=== PATIENT | female | born 1950 | race Caucasian/White ===

== ENCOUNTER 2017-04-05 13:23 | Inpatient (IN) | payer MEDICARE, OTHER ==
[~2017-04-05] VITALS: Ht 162.6 cm; Wt 52.4 kg
[2017-04-05] MEDS ORDERED: ONDANSETRON 4 MG INJ IV STA (13:33)
[2017-04-05] MEDS ORDERED: HYDROmorphONE 1 MG/ML SYG IV STA ×2 (13:33→16:53)
[2017-04-05] MEDS ORDERED: SODIUM CHLORIDE 0.9% 1L BAG IV* STA (13:33)
[2017-04-05 14:04] LABS: ADD SCAN DIFF NO
[2017-04-05] MEDS ORDERED: ACETAMINOPHEN 325 MG TAB ONE (14:09)
--- NOTE | 2017-04-05 14:20 | RADRPT ---
PROCEDURE: XR Chest. CLINICAL INDICATION: Shortness of breath. Sepsis TECHNIQUE: A single portable view of the chest was obtained. COMPARISON: 03/15/2017 FINDINGS: Right chest wall port is unchanged. The aorta is tortuous and atherosclerotic. The cardiomediastin al silhouette is otherwise within normal limits. The lungs and pleural spaces are clear. The soft tissues and osseous structures demonstrate benign age related senescent changes. IMPRESSION: No acute cardiopulmonary disease. RPTAT: HPNM Physician Reina Date Time Electronically viewed and signed by Jerad Nickerson Physician on 04/05/2017 14:20 /
[2017-04-05 14:23] LABS: INR 1.32; PROTIME 16.5 Sec (12.2-14.2); PT RATIO 1.3
[2017-04-05 14:24] LABS: ABNORMAL IP MESSAGE 1; BASOPHILS % 0.2 % (0.0-2.0); EOSINOPHILS # 0.2 10^3/ul (0.0-0.5); EOSINOPHILS % 1.3 % (0.0-7.0); HEMATOCRIT 27.2 % (37.0-47.0); HEMOGLOBIN 8.4 g/dl (12.0-16.0); LYMPHOCYTES # 0.9 10^3/ul (0.8-2.9); LYMPHOCYTES % 6.6 % (15.0-51.0); MEAN CORPUSCULAR HEMOGLOBIN 32.2 pg (29.0-33.0); MEAN CORPUSCULAR HGB CONC 30.9 g/dl (32.0-37.0); MEAN CORPUSCULAR VOLUME 104.2 fl (82.0-101.0); MEAN PLATELET VOLUME 10.3 fl (7.4-10.4); MONOCYTE # 1.5 10^3/ul (0.3-0.9); MONOCYTES % 10.6 % (0.0-11.0); NEUTROPHIL # 11.5 10^3/ul (1.6-7.5); NEUTROPHILS % 80.6 % (39.0-77.0); PARTIAL THROMBOPLASTIN TIME 39.8 Sec (25.0-35.0); PLATELET COUNT 193 10^3/UL (140-415); RED BLOOD COUNT 2.61 10^6/ul (4.20-5.40); RED CELL DISTRIBUTION WIDTH 20.3 % (11.5-14.5); WHITE BLOOD COUNT 14.3 10^3/ul (4.8-10.8)
[2017-04-05 14:27] LABS: ALANINE AMINOTRANSFERASE 26 IU/L (13-69); ALBUMIN 3.3 g/dl (3.3-4.9); ALBUMIN/GLOBULIN RATIO 1.13; ALKALINE PHOSPHATASE 330 IU/L (42-121); ANION GAP 13 (8-16); ASPARTATE AMINO TRANSFERASE 84 IU/L (15-46); BILIRUBIN,INDIRECT 0.4 mg/dl (0-1.1); BILIRUBIN,TOTAL 0.4 mg/dl (0.2-1.3); BLOOD UREA NITROGEN 11 mg/dl (7-20); CALCIUM 8.4 mg/dl (8.4-10.2); CARBON DIOXIDE 27 mmol/L (21-31); CHLORIDE 95 mmol/L (97-110); CREATININE 0.68 mg/dl (0.44-1.00); GLUCOSE 70 mg/dl (70-220); SODIUM 131 mmol/L (135-144); TOTAL PROTEIN 6.2 g/dl (6.1-8.1)
[2017-04-05] MEDS ORDERED: metroNIDAZOLE 500 MG/NS (PMX) 100 ML IVPB STA (14:28)
[2017-04-05] MEDS ORDERED: LEVOFLOXACIN 750MG/D5W (PMX) 150 ML IVPB STA (14:28)
[2017-04-05] MEDS ORDERED: ACETAMINOPHEN 325 MG TAB PO ONE (14:30)
[2017-04-05] MEDS ORDERED: APIX2.5T PO (14:32)
[2017-04-05] MEDS ORDERED: DOCU-159 PO (14:33)
[2017-04-05] MEDS ORDERED: CHOL100062 PO (14:33)
[2017-04-05] MEDS ORDERED: DRON2.5C PO (14:34)
[2017-04-05] MEDS ORDERED: ESTR1TAB23 PO ×2 (14:35)
--- NOTE | 2017-04-05 14:35 | ERA ---
ER Documentation Chief Complaint Date/Time DATE: 04/05/17 TIME: 14:33 Chief Complaint GEN ABDOMINAL AND FEVER FOR THE PAST FEW DAYS. NO DISTRESS, NO N/V/D HPI 67-year-old female who presents with abdominal pain and fever. The patient is a limited historian possibly secondary to early dementia versus pain. The patient describes several days of abdominal pain, decreased bowel movement. She does have abdominal surgical history but cannot recall what the surgery was. She notes vomiting. Remainder of HPI is somewhat limited. ROS All systems reviewed and are negative except as per history of present illness. Medications Home Meds Reported Medications Ascorbic Acid* (Vitamin C*) 500 Mg Capsule.sa, 500 MG PO DAILY, CAP 04/05/17 Sildenafil Citrate* (Sildenafil Citrate*) 20 Mg Tablet, 20 MG PO TID, TAB 04/05/17 Protein Supplement (Promod) 946 Ml Liquid, 30 ML PO BID 04/05/17 Pregabalin* (Lyrica*) 25 Mg Capsule, 50 MG PO TID, CAP 04/05/17 Polyethylene Glycol* (Polyethylene Glycol*) 17 Gm Powd.pack, 17 GM PO DAILY, # 30 PACKET 04/05/17 Oxycodone HCl/Acetaminophen (Percocet 5-325 mg Tablet) 1 Each Tablet, 1 EACH PO Q4H, TAB 04/05/17 Pantoprazole* (Pantoprazole*) 40 Mg Tablet.dr, 40 MG PO AC BREAKFAST DINNER, TAB 04/05/17 Oxycodone Hcl* (IR) (Oxycodone Hcl*) 15 Mg Tablet, 30 MG PO Q12H Y for PAIN, TAB 04/05/17 Multivitamin with Minerals (Multivitamins with Minerals) 1 Each Tablet, 1 EACH PO DAILY, TAB 04/05/17 Modafinil* (Modafinil*) 100 Mg Tablet, 200 MG PO BID, TAB 04/05/17 Metoclopramide Hcl* (Metoclopramide Hcl*) 5 Mg Tablet, 5 MG PO TID Y for NAUSEA AND/OR VOMITING, TAB 04/05/17 Methylprednisolone* (Medrol*) 4 Mg Tab, 6 MG PO DAILY, TAB 04/05/17 Lubiprostone* (Amitiza*) 24 Mcg Capsule, 24 MCG PO BID, #60 CAP 04/05/17 Loratadine* (Loratadine*) 10 Mg Tablet, 10 MG PO DAILY, #30 TAB 04/05/17 Imatinib Mesylate* (Gleevec*) 400 Mg Tablet, 400 MG PO DAILY, TAB 04/05/17 Ferrous Sulfate* (Ferrous Sulfate*) 325 Mg Tabec, 325 MG PO DAILY, TAB 04/05/17 Estradiol* (Estrace*) 1 Mg Tablet, 1 MG PO DAILY, TAB 04/05/17 Estradiol* (Estrace*) 1 Mg Tablet, 0.5 MG PO QHS, TAB 04/05/17 Dronabinol* (Dronabinol*) 2.5 Mg Capsule, 2.5 MG PO BID, CAP 04/05/17 Docusate Sodium* (Docusate Sodium*) 100 Mg Capsule, 100 MG PO BID, #60 CAP 04/05/17 Cholecalciferol* (Vitamin D3*) 1,000 Unit Tablet, 1000 UNIT PO DAILY, TAB 04/05/17 Apixaban* (Eliquis*) 2.5 Mg Tablet, 2.5 MG PO BID, TAB 04/05/17 Allergies Allergies: Coded Allergies: Gramicidins (Verified Allergy, Unknown, 04/05/17) Sulfa (Sulfonamide Antibiotics) (Verified Allergy, Unknown, 04/05/17) bacitracin (Verified Allergy, Unknown, 04/05/17) piperacillin (Verified Allergy, Unknown, 04/05/17) polymyxin B (Verified Allergy, Unknown, 04/05/17) sulfamethoxazole (Unverified Allergy, Unknown, 04/05/17) trimethoprim (Unverified Allergy, Unknown, 04/05/17) vancomycin (Verified Allergy, Unknown, 04/05/17) FmHx Family History: No diabetes Physical Exam Vitals Vital Signs Date Time Temp Pulse Resp B/P Pulse Ox O2 Delivery O2 Flow Rate FiO2 04/05/17 15:32 102.4 106 20 121/81 100 Room Air 04/05/17 13:56 100.4 125 20 113/98 100 Room Air 04/05/17 13:31 98.9 102 20 125/77 98 Physical Exam General: Cachectic, uncomfortable Head: Normocephalic, atraumatic. Eyes: Pupils equally reactive, EOM intact ENT: Moist mucous membranes Neck: Supple, no lymphadenopathy Respiratory: Lungs clear bilaterally, no distress Cardiovascular: Tachycardia, no murmurs, rubs, or gallops Abdominal: Protuberant, firm, surgical, midline wound that appears to be old, diffuse tenderness : Deferred MSK: No edema, no unilateral swelling, 5/5 strength Neurologic: Alert and oriented, moving all extremities, normal speech, no focal weakness, no cerebellar signs Skin: No rash Psych: Normal mood Result Diagram: 04/05/17 1350 04/05/17 1350 Results 24 hrs Laboratory Tests Test 04/05/17 13:50 White Blood Count 14.310^3/ul Red Blood Count 2.6110^6/ul Hemoglobin 8.4g/dl Hematocrit 27.2% Mean Corpuscular Volume 104.2fl Mean Corpuscular Hemoglobin 32.2pg Mean Corpuscular Hemoglobin Concent 30.9g/dl Red Cell Distribution Width 20.3% Platelet Count 31427^3/UL Mean Platelet Volume 10.3fl Neutrophils % 80.6% Lymphocytes % 6.6% Monocytes % 10.6% Eosinophils % 1.3% Basophils % 0.2% Nucleated Red Blood Cells % 0.0/100WBC Neutrophils # 11.510^3/ul Lymphocytes # 0.910^3/ul Monocytes # 1.510^3/ul Eosinophils # 0.210^3/ul Basophils # 0.010^3/ul Nucleated Red Blood Cells # 0.010^3/ul Prothrombin Time 16.5Sec Prothrombin Time Ratio 1.3 INR International Normalized Ratio 1.32 Activated Partial Thromboplast Time 39.8Sec Sodium Level 131mmol/L Potassium Level 4.0mmol/L Chloride Level 95mmol/L Carbon Dioxide Level 27mmol/L Anion Gap 13 Blood Urea Nitrogen 11mg/dl Creatinine 0.68mg/dl Glucose Level 70mg/dl Lactic Acid Level 1.0mmol/L Calcium Level 8.4mg/dl Total Bilirubin 0.4mg/dl Direct Bilirubin 0.00mg/dl Indirect Bilirubin 0.4mg/dl Aspartate Amino Transf (AST/SGOT) 84IU/L Alanine Aminotransferase (ALT/SGPT) 26IU/L Alkaline Phosphatase 330IU/L Troponin I < 0.012ng/ml Total Protein 6.2g/dl Albumin 3.3g/dl Globulin 2.90g/dl Albumin/Globulin Ratio 1.13 Current Medications Medications (Trade) Dose Ordered Sig/Ally Route PRN Reason Start Time Stop Time Status Last Admin Dose Admin Sodium Chloride (NS) 2,170 ml BOLUS OVER 2 HOURS STAT IV* 04/05/17 13:33 04/05/17 13:37 DC 04/05/17 14:12 Hydromorphone HCl (Dilaudid) 0.5 mg ONCE STAT IV 04/05/17 13:33 04/05/17 13:37 DC 04/05/17 14:12 Ondansetron HCl (Zofran Inj) 4 mg ONCE STAT IV 04/05/17 13:33 04/05/17 13:37 DC 04/05/17 14:12 Acetaminophen (Tylenol Tab) 325 mg STK-MED ONCE .ROUTE 04/05/17 14:09 04/05/17 14:10 DC Acetaminophen 650 mg 650 mg ONCE ONCE PO 04/05/17 14:30 04/05/17 14:31 DC 04/05/17 14:12 Metronidazole 100 ml @ 100 mls/hr ONCE STAT IVPB 04/05/17 14:28 04/05/17 15:27 DC 04/05/17 15:27 Levofloxacin/ Dextrose (Levaquin 750 Mg/ D5W 150 ml (Pmx)) 150 ml @ 100 mls/hr ONCE STAT IVPB 04/05/17 14:28 04/05/17 15:57 DC Ondansetron HCl (Zofran Inj) 4 mg BRIDGE ORDER PRN IV NAUSEA AND/OR VOMITING 04/05/17 15:30 04/06/17 15:29 Acetaminophen (Tylenol Tab) 650 mg ER BRIDGE PRN PO MILD PAIN/FEVER 04/05/17 15:30 04/06/17 15:29 Procedures/MDM EKG, MONITORS, & DIAGNOSTIC IMAGING: EKG: I reviewed and interpreted a 12-lead EKG. Rhythm: Normal sinus rhythm Ectopy: None Intervals: No abnormalities ST segments: No elevations or depressions T waves: No contiguous inversions CT abdomen and pelvis: IMPRESSION: 1. Multiple large hepatic masses, some of which suggest bleeding within the mass. Recommend further evaluation with multi phase CT of the liver. 2. Extensive nodularity in the left retroperitoneum which may represent extensive portosystemic collateral vasculature or adenopathy. Recommend contrast enhanced CT of the abdomen pelvis. 3. Mild abdominopelvic free fluid. 4. Moderate emphysematous changes in the lung bases. 5. Punctate nonobstructing left renal calculi. 6. Atherosclerotic vascular disease. 7. Limited evaluation of the pelvis due to bilateral hip arthroplasties. 8. Nonspecific 1.1 cm sclerotic focus in the left iliac wing. 9. Severe degenerative changes at L3-L4 and L5-S1. RPTAT: KK LAB INTERPRETATION: Leukocytosis MEDICAL DECISION MAKING: The patient presents to the emergency room with fever, abdominal pain. Her abdominal exam is very concerning for acute intra-abdominal process such as bowel obstruction with possible perforation. Cultures will be taken. Patient will benefit from aggressive fluid resuscitation, broad-spectrum antibiotics. The patient has an extensive allergy history, given strong likelihood of acute intra-abdominal process the patient will be given Levaquin and Flagyl. Pain control medication, antipyretics, fluids will be initiated as well. ER COURSE: CT showing evidence of likely malignant process with complications. The patient does have an advanced directive that states DNR, DNI, comfort measures only. For this reason the patient is not a good candidate for surgery. However , general surgeon was notified, Dr. Lee was kind enough to come to the patient's bedside. We will continue with comfort measures with fluids, empiric antibiotics and pain control medication. The patient will be stabilized on the medical surgical floor. Hospice/palliative care consultation on an inpatient basis would likely be appropriate. I kept the patient and/or family informed of laboratory and diagnostic imaging results throughout the emergency room course. DISPOSITION PLAN: Medical surgical admission CONSULTATION: Accepting care team and consultations: I discussed the current laboratory data, diagnostic imaging and emergency care provided. Admitting team: Dr. Marie Admitting team indication: Insurance directed Consulting services: Dr. Emanuel Lee, general surgery Departure Diagnosis: Primary Impression: Abdominal pain Qualified Code: R10.84 - Generalized abdominal pain Additional Impressions: SIRS (systemic inflammatory response syndrome) Liver masses Condition: Stable ANIYAH LENNON MD Apr 05, 2017 14:35
[2017-04-05] MEDS ORDERED: FER325 PO (14:36)
[2017-04-05] MEDS ORDERED: LORA10TA3 PO (14:36)
[2017-04-05] MEDS ORDERED: GLEE400 PO (14:36)
[2017-04-05] MEDS ORDERED: LUBI24CA7 PO (14:37)
[2017-04-05 14:38] LABS: TROPONIN-I < 0.012 ng/ml (0.00-0.12)
[2017-04-05] MEDS ORDERED: METH4TAB PO (14:38)
[2017-04-05] MEDS ORDERED: METO5TAB11 PO (14:38)
[2017-04-05] MEDS ORDERED: [UNRECOGNIZED DRUG - CODE] PO (14:39)
[2017-04-05] MEDS ORDERED: MULT-105 PO (14:40)
[2017-04-05] MEDS ORDERED: OXYC15TA PO (14:42)
[2017-04-05] MEDS ORDERED: PANT40TA4 PO (14:43)
[2017-04-05] MEDS ORDERED: OXYC-279 PO (14:44)
[2017-04-05] MEDS ORDERED: POLY17PO3 PO (14:44)
[2017-04-05] MEDS ORDERED: LYRI25 PO (14:45)
[2017-04-05] MEDS ORDERED: PROT946L PO (14:46)
[2017-04-05] MEDS ORDERED: SILD20TA PO (14:46)
[2017-04-05] MEDS ORDERED: ASCO500C7 PO (14:46)
--- NOTE | 2017-04-05 14:53 | RADRPT ---
PROCEDURE: CT Abdomen and Pelvis without contrast. CLINICAL INDICATION: Abdominal pain TECHNIQUE: CT scan of the abdomen and pelvis without contrast was performed on a multi-slice CT [facility] without intravenous contrast. Coronal and sagittal reformatted images were obtained from the axial source images. Images were reviewed on a high-resolution PACS workstation. One or more of the following does reduction techniques were used: Automated exposure control; adjustment of the mA an d/or kV according to patient size; use of the aorta of reconstruction technique. The total exam CTD I equals 10.99 mGy and the total exam DLP equals 573.5 mGy-cm. COMPARISON: None available. FINDINGS: There are moderate emphysematous changes in the lung bases. Heart size is normal, and there is no e vidence of pericardial thickening or effusion. There are at least 3 masses within the liver and possibly more. There is a mass in the left lobe li adela which measures at least up to 11 cm. There are areas of hyperdensity which appear to be layerin g likely representing bleeding within the mass. There is also an oblong mass-like structure measuri ng 12 cm along the posterior aspect of the left lobe of the liver with an apparent fluid-fluid level also suggesting bleeding within the mass or possibly in a loculated subcapsular space. There is a p oorly demarcated mass in the right lobe of the liver. The spleen is within normal limits. The panc reas is poorly visualized but grossly unremarkable. There appear to be extensive portal venous colla terals in the left retroperitoneum, however the lack of contrast limits evaluation in this may repre sent adenopathy. The gallbladder is not clearly visualized.. The adrenal glands are not well seen. No obvious adrenal masses are present. There are a few punct ate nonobstructing left renal calculi. The kidneys are otherwise grossly within normal limits. The aorta is of normal caliber. Atherosclerotic calcifications are present There is no retroperiton eal lymph node enlargment. There is no evidence of large or small bowel obstruction. There is moderate to large stool througho ut the colon. There is mild thickening of the right colon. A normal appendix is not clearly identi fied.. There has see small amounts of free fluid scattered throughout the abdomen pelvis. The den sity of the fluid is indeterminate. No obvious inflammatory changes are seen.. Evaluation of the pelvis is limited due to dense streak artifact from bilateral total hip arthroplas ties. The bladder appears distended. Evaluation for pelvic sidewall lymph node enlargement is hunter edly limited. The uterus is not visualized. There is pelvic free fluid. The inguinal regions are grossly unremarkable There is a nonspecific 1.1 cm sclerotic focus in the left posterior iliac wing. There is severe deg enerative changes at the lumbosacral junction at L3-L4. There may have been a prior infection at L3 -L4.. IMPRESSION: 1. Multiple large hepatic masses, some of which suggest bleeding within the mass. Recommend furthe r evaluation with multi phase CT of the liver. 2. Extensive nodularity in the left retroperitoneum which may represent extensive portosystemic col lateral vasculature or adenopathy. Recommend contrast enhanced CT of the abdomen pelvis. 3. Mild abdominopelvic free fluid. 4. Moderate emphysematous changes in the lung bases. 5. Punctate nonobstructing left renal calculi. 6. Atherosclerotic vascular disease. 7. Limited evaluation of the pelvis due to bilateral hip arthroplasties. 8. Nonspecific 1.1 cm sclerotic focus in the left iliac wing. 9. Severe degenerative changes at L3-L4 and L5-S1. RPTAT: KK .Janusz Weiss MD, Date Time Electronically viewed and signed by .Janusz Weiss MD, MD on 04/05/2017 14:52 .B/
[2017-04-05] MEDS ORDERED: ONDANSETRON 4 MG INJ IV PRN (15:30)
[2017-04-05] MEDS ORDERED: ACETAMINOPHEN 325 MG TAB PO PRN ×2 (15:30→18:30)
[2017-04-05 16:33] LABS: ADD UMIC YES; UR ASCORBIC ACID NEGATIVE (NEGATIVE); UR BACTERIA FEW /HPF (NONE SEEN); UR BILIRUBIN (Dip) NEGATIVE (NEGATIVE); UR BLOOD (Dip) NEGATIVE (NEGATIVE); UR BUDDING YEAST MODERATE /HPF (NONE SEEN); UR CLARITY SLIGHTLY CLOUDY (CLEAR); UR COLOR YELLOW (YELLOW); UR GLUCOSE (Dip) NEGATIVE (NEGATIVE); UR KETONES (Dip) 1+ mg/dL (NEGATIVE); UR LEUKOCYTE ESTERASE (Dip) 1+ Leu/ul (NEGATIVE); UR NITRITE (Dip) NEGATIVE (NEGATIVE); UR RBC 0 /HPF (0-5); UR SPECIFIC GRAVITY (Dip) 1.014 (1.003-1.030); UR SQUAMOUS EPITHELIAL CELL MODERATE /HPF (FEW); UR TOTAL PROTEIN (Dip) 1+ mg/dl (NEGATIVE); UR UROBILINOGEN (Dip) 2+ mg/dL (NEGATIVE)
--- NOTE | 2017-04-05 16:41 | CONS ---
Date/Time of Note Date/Time of Note DATE: 04/05/17 TIME: 16:23 Assessment/Plan Assessment/Plan Chief Complaint/Hosp Course 1. Intrahepatic masses: CT abd: multiple large hepatic masses, some of which suggest bleeding within the mass and extensive nodularity in the left retroperitoneum which may represent extensive portosystemic collateral vasculature or adenopathy. 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 Patient does not want aggressive interventions, DNR/DNI status -no surgical interventions required at this time -observe for acute bleed -follow up with Oncologist outpatient 2. Severe abdominal pain: 2/2 above -pain management -as above 3. Anemia: likely 2/2 recent chemo + CML vs. acute bleed -monitor -transfuse as needed 4. Leukocytosis: recent chemo + uti; fevers -supportive -abx 5. Hyponatremia: likely 2/2 dehydration + vomiting + liver disease -optimize lytes -judicious fluid management 6. Elevated liver enzymes: 2/2 #1 -as above 7. UTI: no dysuria -encourage frequent bladder emptying -abx 8. CML with recent chemotherapy:concern for metastasis -follow with outpatient oncologist for continuity of care -continue antineoplastic medications Patient seen and examined in collaboration with Dr. Eric Lee. Problems: Consultation Date/Type/Reason Admit Date/Time Date of Consultation: Apr 05, 2017 Type of Consultation: Surgical Reason for Consultation abdominal pain, abnormal ct abdomen Hx of Present Illness Augustina Cruz is a 67 yo woman who presents to the ED with complaints of constant abdominal pain for several days. Abdominal pain is described as constant and dull. Associated factors include nausea, vomiting and fevers as high as 102. No relieving factors. No interventions attempted. She has significant history of CML with recent chemo and a [address] of the abdomen shows Multiple large hepatic masses, some of which suggest bleeding within the mass, extensive nodularity in the left retroperitoneum and mild abdominopelvic free fluid. General surgery was called to evaluate Constitutional: febrile, No chills, No diaphoresis Eyes: No no complaints ENT: No no complaints Respiratory: No cough, No no complaints, No shortness of breath Cardiovascular: No chest pain, No edema, No lightheadedness, No palpitations Gastrointestinal: flatus, pain Genitourinary: No no complaints Musculoskeletal: No no complaints Skin: No no complaints Neurologic: No confusion, No headache, No syncope Endocrine: No polyuria Psychological: anxiety Past Medical History Medical History: cancer (CML with recent chemo), other (bowel obstruction, liver lesions) Past Surgical History Past Surgical Hx: other (korina cath placement, bilateral hip replacement, explore lap) Family History Significant Family History: no pertinent family hx Social History Alcohol Use: none Smoking Status: Unknown if ever smoked Drug Use: none Exam/Review of Systems Vital Signs Vitals Vital Signs Date Time Temp Pulse Resp B/P Pulse Ox O2 Delivery O2 Flow Rate FiO2 04/05/17 15:32 102.4 106 20 121/81 100 Room Air Exam Constitutional: alert, oriented Psych: anxiety Head: atraumatic, normocephalic Eyes: nl lids, nl sclera ENMT: mucosa pink and moist Neck: non-tender, supple Respiratory: clear to auscultation Cardiovascular: regular rate and rhythm, No edema Gastrointestinal: bowel sounds, distended, hepatomegaly, surgical scars, tender Musculoskeletal: nl extremities to inspection Extremities: normal pulses, No edema Neurological: nl mental status, nl speech Skin: nl turgor Lymph: enlarged Results Result Diagram: 04/05/17 1350 04/05/17 1350 Results 24 hrs Laboratory Tests Test 04/05/17 13:50 White Blood Count 14.3 #H Red Blood Count 2.61 L Hemoglobin 8.4 L Hematocrit 27.2 L Mean Corpuscular Volume 104.2 H Mean Corpuscular Hemoglobin 32.2 Mean Corpuscular Hemoglobin Concent 30.9 L Red Cell Distribution Width 20.3 H Platelet Count 193 Mean Platelet Volume 10.3 Neutrophils % 80.6 H Lymphocytes % 6.6 L Monocytes % 10.6 Eosinophils % 1.3 Basophils % 0.2 Nucleated Red Blood Cells % 0.0 Neutrophils # 11.5 H Lymphocytes # 0.9 Monocytes # 1.5 H Eosinophils # 0.2 Basophils # 0.0 Nucleated Red Blood Cells # 0.0 Prothrombin Time 16.5 H Prothrombin Time Ratio 1.3 INR International Normalized Ratio 1.32 Activated Partial Thromboplast Time 39.8 H Sodium Level 131 L Potassium Level 4.0 Chloride Level 95 L Carbon Dioxide Level 27 Anion Gap 13 Blood Urea Nitrogen 11 Creatinine 0.68 Glucose Level 70 Lactic Acid Level 1.0 Calcium Level 8.4 Total Bilirubin 0.4 Direct Bilirubin 0.00 Indirect Bilirubin 0.4 Aspartate Amino Transf (AST/SGOT) 84 H Alanine Aminotransferase (ALT/SGPT) 26 Alkaline Phosphatase 330 H Troponin I < 0.012 Total Protein 6.2 Albumin 3.3 Globulin 2.90 Albumin/Globulin Ratio 1.13 ELLIOTT XIONG NP Apr 05, 2017 16:41
[2017-04-05 17:29] VITALS: TEMP 98.4
[2017-04-05] MEDS ORDERED: oxyCODONE 15 MG TAB PO PRN ×2 (18:30→20:00)
[2017-04-05] MEDS ORDERED: MAGNESIUM HYDROXIDE 30ML CUP PO PRN (18:30)
[2017-04-05] MEDS ORDERED: NA PHOSPHATE/BIPHOS 133 ML ENEMA PR PRN (18:30)
[2017-04-05] MEDS ORDERED: hydrALAzine 20 MG INJ IV PRN (18:30)
[2017-04-05] MEDS ORDERED: METOCLOPRAMIDE 5 MG TAB PO PRN (18:30)
[2017-04-05] MEDS ORDERED: HYDROCODONE/APAP (5/325) TAB PO PRN (18:30)
[2017-04-05] MEDS ORDERED: NITROGLYCERIN (SL) 0.4 MG TAB SL PRN (18:30)
[2017-04-05] MEDS ORDERED: LORAZEPAM 2 MG INJ IV PRN (18:30)
[2017-04-05] MEDS ORDERED: DOCUSATE SODIUM 100 MG CAP PO PRN (18:30)
[2017-04-05] MEDS: SOD CHLORIDE 0.9% 1,000 ML IV SCH (19:07)
--- NOTE | 2017-04-05 19:31 | HP ---
Date/Time of Note Date/Time of Note DATE: 04/05/17 TIME: 19:25 Assessment/Plan VTE Prophylaxis VTE Prophylaxis Intervention: contraindicated, SCD's VTE Contraindication Reason: bleeding Assessment/Plan Chief Complaint/Hosp Course Assessment and plan: 67-year-old female prior history of CML, bowel obstruction , dementia, who presents with abdominal pain, found with multiple hepatic bleeding masses, now DNR and DNI. 1. Abdominal pain: Likely secondary to the bleeding hepatic masses -Pain control medications, check TSH A1c lipid panel, follow-up surgery recommendations -Consider PT consult 2. CML: Apparently patient had recent chemotherapy -Monitor, consider hematology oncology consult 3. Dementia: Questionable, monitor 4. GI prophylaxis: PPI 5. DVT prophylaxis: SCDs 6. Leukocytosis: Possibly secondary to patient's recent chemotherapy, versus infection, -Monitor for now, consider cultures, Tylenol as needed pain fever 7. Mild hyponatremia: Monitor for now, continue IV fluids Problems: HPI/ROS Admit Date/Time Admit Date/Time Hx of Present Illness 67-year-old female past medical history of possible dementia, CML with recent chemo, possible prior bowel obstructions, who presents with abdominal pain and fever. Most of the information is obtained from the ER documentation as the patient is a limited historian possibly secondary to early dementia versus pain. The patient describes several days of abdominal pain, decreased bowel movement. She does have abdominal surgical history but cannot recall what the surgery was. + vomiting, and nausea. Remainder of HPI is somewhat limited. Full review of systems could not be obtained at this time. When she came into the ER she had imaging studies performed of the abdomen that shows: Multiple large hepatic masses, some of which suggest bleeding within the mass. Extensive nodularity in the left retroperitoneum which may represent extensive portosystemic collateral vasculature or adenopathy. Patient is DNR/DNI. In the ER she was evaluated by the surgery team. ROS Eyes: No no complaints ENT: No no complaints Respiratory: No cough, No no complaints, No shortness of breath Cardiovascular: No chest pain, No edema, No lightheadedness, No palpitations Gastrointestinal: flatus, pain Genitourinary: No no complaints Musculoskeletal: No no complaints Skin: No no complaints Neurologic: No confusion, No headache, No syncope Psychological: anxiety PMH/Family/Social Past Medical History Medical History: cancer (CML with recent chemo), other (bowel obstruction, liver lesions) Past Surgical History Past Surgical Hx: other (korina cath placement, bilateral hip replacement, explore lap) Social History Alcohol Use: none Smoking Status: Unknown if ever smoked Drug Use: none Exam/Review of Systems Vital Signs Vitals Vital Signs Date Time Temp Pulse Resp B/P Pulse Ox O2 Delivery O2 Flow Rate FiO2 04/05/17 17:29 98.4 79 20 102/79 97 Nasal Cannula 2.0 Exam Exam General: Cachectic, uncomfortable Head: Normocephalic, atraumatic. Eyes: Pupils equally reactive, EOM intact ENT: Moist mucous membranes Neck: Supple, no lymphadenopathy Respiratory: Lungs clear bilaterally, no distress Cardiovascular: Tachycardia, no murmurs, rubs, or gallops Abdominal: Protuberant, firm, surgical, midline wound that appears to be old, diffuse tenderness : Deferred MSK: No edema, no unilateral swelling, 5/5 strength Neurologic: Alert and oriented, moving all extremities, normal speech, no focal weakness, no cerebellar signs Skin: No rash Psych: Normal mood Labs Result Diagram: 04/05/17 1350 04/05/17 1350 Medications Medications Current Medications Ondansetron HCl (Zofran Inj) 4 mg Q6H PRN IV NAUSEA AND/OR VOMITING; Start 04/05 at 18:30 Acetaminophen (Tylenol Tab) 650 mg Q6H PRN PO PAIN LEVEL 1-3 OR FEVER; Start at 18:30 Acetaminophen/ Hydrocodone Bitart ([place] (5/325)) 1 tab Q6H PRN PO MODERATE PAIN LEVEL 4-6; Start 04/05/17 at 18:30 Morphine Sulfate (morphine) 2 mg Q4H PRN IV SEVERE PAIN LEVEL 7-10; Start at 18:30 Docusate Sodium (Colace) 100 mg Q12H PRN PO CONSTIPATION; Start 04/05/17 at 18: 30 Magnesium Hydroxide (Milk Of Mag) 30 ml DAILY PRN PO CONSTIPATION; Start at 18:30 Sodium Biphosphate/ Sodium Phosphate (Fleet Enema) 133 ml DAILY PRN [place] CONSTIPATION; Start 04/05/17 at 18:30 Lorazepam 0.5 mg 0.5 mg Q6H PRN IV ANXIETY; Start 04/05/17 at 18:30 Sodium Chloride 1,000 ml @ 100 mls/hr Q10H IV Last administered on 04/05/17t 19 :07; Admin Dose 100 MLS/HR; Start 04/05/17 at 18:07 Levofloxacin/ Dextrose (Levaquin 750 Mg/ D5W 150 ml (Pmx)) 150 ml @ 100 mls/hr DAILY IVPB ; Start 04/06/17 at 09:00; Status UNV Hydralazine HCl (Apresoline) 10 mg Q6H PRN IV ELEVATED BLOOD PRESSURE; Start at 18:30 Nitroglycerin (Nitroglycerin (Sl Tab) 0.4 Mg) 1 tab Q5M PRN SL ANGINA; Start at 18:30 Ascorbic Acid (Vitamin C) 500 mg DAILY PO ; Start 04/06/17 at 09:00 Cholecalciferol (Vitamin D) 1,000 unit DAILY PO ; Start 04/06/17 at 09:00 Docusate Sodium (Colace) 100 mg BID PO ; Start 04/05/17 at 21:00 Dronabinol (Marinol) 2.5 mg BID PO ; Start 04/05/17 at 21:00; Status UNV Estradiol (Estrace) 0.5 mg QHS PO ; Start 04/05/17 at 21:00; Status UNV Estradiol (Estrace) 1 mg DAILY PO ; Start 04/06/17 at 09:00; Status UNV Ferrous Sulfate (Ferrous Sulfate (Ec)) 325 mg DAILY PO ; Start 04/06/17 at 09:00 Imatinib Mesylate (Gleevec) 400 mg DAILY PO ; Start 04/06/17 at 09:00; Status UNV Loratadine (Claritin) 10 mg DAILY PO ; Start 04/06/17 at 09:00 Lubiprostone (Amitiza) 24 mcg BID PO ; Start 04/05/17 at 21:00; Status UNV Methylprednisolone (Medrol) 6 mg DAILY PO ; Start 04/06/17 at 09:00; Status UNV Metoclopramide HCl (Reglan) 5 mg TID PRN PO NAUSEA AND/OR VOMITING; Start at 18:30 Modafinil (Provigil) 200 mg BID PO ; Start 04/05/17 at 21:00; Status UNV Oxycodone HCl (Roxicodone) 30 mg Q12H PRN PO PAIN; Start 04/05/17 at 18:30; Status UNV Polyethylene Glycol (Miralax) 17 gm DAILY PO ; Start 04/06/17 at 09:00 Pregabalin (Lyrica) 50 mg TID PO ; Start 04/05/17 at 21:00; Status UNV Sildenafil Citrate (Revatio) 20 mg TID PO ; Start 04/05/17 at 21:00; Status UNV Multivitamins/ Minerals 1 tab 1 tab DAILY PO ; Start 04/06/17 at 09:00 Metronidazole (Flagyl 500 Mg (Pmx)) 100 ml @ 100 mls/hr Q8 IVPB ; Start at 22:00 ISHAN MILLER Apr 05, 2017 19:31
[2017-04-05 20:03] LABS: INR 1.43; PROTIME 17.5 Sec (12.2-14.2); PT RATIO 1.4
[2017-04-05 20:04] LABS: PARTIAL THROMBOPLASTIN TIME 39.7 Sec (25.0-35.0)
[2017-04-05] MEDS: MODAFINIL 200 MG TAB PO SCH (21:00)
[2017-04-05] MEDS ORDERED: LUBIPROSTONE 24 MCG CAP PO SCH (21:00)
[2017-04-05] MEDS ORDERED: NON-FORMULARY/PATIENT OWN MED (Protein Supplement (Promod) 30 ML) PO SCH (21:00)
[2017-04-05] MEDS ORDERED: ESTRADIOL 1 MG TAB PO SCH (21:00)
[2017-04-05] MEDS: SILDENAFIL 20 MG TAB PO SCH (21:00)
[2017-04-05] MEDS ORDERED: DRONABINOL 2.5 MG CAP PO SCH (21:00)
[2017-04-05] MEDS: DOCUSATE SODIUM 100 MG CAP PO SCH (21:00)
[2017-04-05] MEDS: ESTRADIOL 1 MG TAB PO SCH (21:00)
[2017-04-05] MEDS: DRONABINOL 2.5 MG CAP PO SCH (21:00)
[2017-04-05] MEDS ORDERED: PREGABALIN 25 MG CAP PO SCH (21:00)
[2017-04-05] MEDS: LUBIPROSTONE 24 MCG CAP PO SCH (21:00)
[2017-04-05] MEDS ORDERED: MODAFINIL 100 MG TAB PO SCH (21:00)
[2017-04-05] MEDS ORDERED: SILDENAFIL 20 MG TAB PO SCH (21:00)
[2017-04-05] MEDS: PREGABALIN 50 MG CAP PO SCH (22:00)
[2017-04-05 22:12] VITALS: BP 112/72; RESP 16
[2017-04-05] MEDS: morphine 2 MG INJ IV PRN (22:17)
[2017-04-05] MEDS: metroNIDAZOLE 500 MG/NS (PMX) 100 ML IVPB SCH (22:25)
[2017-04-05 22:50] VITALS: Ht 162.6 cm; Wt 52.4 kg
[2017-04-06] MEDS: SOD CHLORIDE 0.9% 1,000 ML IV SCH ×2 (01:53→12:10)
[2017-04-06 03:14] VITALS: BP 122/75; RESP 18
[2017-04-06] MEDS: morphine 2 MG INJ IV PRN ×2 (03:35→07:48)
[2017-04-06] MEDS ORDERED: PENDING SANTYL ORDER FOR WOUND CARE XX PRN (04:00)
[2017-04-06] MEDS: metroNIDAZOLE 500 MG/NS (PMX) 100 ML IVPB SCH ×3 (05:07→21:56)
[2017-04-06] MEDS: PANTOPRAZOLE (EC) 40 MG TAB PO SCH ×2 (07:30→17:35)
[2017-04-06 08:23] VITALS: BP 123/78; RESP 20
[2017-04-06] MEDS: PREGABALIN 50 MG CAP PO SCH (09:00)
[2017-04-06] MEDS ORDERED: IMATINIB 400 MG TAB PO SCH (09:00)
[2017-04-06] MEDS: LORATADINE 10 MG TAB PO SCH (09:00)
[2017-04-06] MEDS: METHYLPREDNISOLONE 4 MG TAB PO SCH (09:00)
[2017-04-06] MEDS: ASCORBIC ACID 500 MG TAB PO SCH (09:00)
[2017-04-06] MEDS: IMATINIB 400 MG TAB PO SCH (09:00)
[2017-04-06] MEDS: FERROUS SULFATE (EC) 325 MG TAB PO SCH (09:00)
[2017-04-06] MEDS ORDERED: LEVOFLOXACIN 750MG/D5W (PMX) 150 ML IVPB SCH (09:00)
[2017-04-06] MEDS ORDERED: ESTRADIOL 1 MG TAB PO SCH (09:00)
[2017-04-06] MEDS: DOCUSATE SODIUM 100 MG CAP PO SCH ×2 (09:00→21:00)
[2017-04-06] MEDS: SILDENAFIL 20 MG TAB PO SCH ×3 (09:00→21:00)
[2017-04-06] MEDS: MULTIVITAMINS/MINERALS TAB PO SCH (09:00)
[2017-04-06] MEDS: POLYETHYLENE GLYCOL 17 GM PACKET PO SCH (09:00)
[2017-04-06] MEDS ORDERED: METHYLPREDNISOLONE 4 MG TAB PO SCH (09:00)
[2017-04-06] MEDS: MODAFINIL 200 MG TAB PO SCH (09:00)
[2017-04-06] MEDS: LUBIPROSTONE 24 MCG CAP PO SCH ×2 (09:00→21:00)
[2017-04-06] MEDS: CHOLECALCIFEROL 1,000 UNIT TAB PO SCH (09:00)
[2017-04-06] MEDS: ESTRADIOL 1 MG TAB PO SCH ×2 (09:00→21:00)
[2017-04-06] MEDS: DRONABINOL 2.5 MG CAP PO SCH ×2 (09:00→21:00)
--- NOTE | 2017-04-06 11:11 | PN ---
Date/Time of Note Date/Time of Note DATE: 04/06/17 TIME: 11:08 Assessment/Plan VTE Prophylaxis VTE Prophylaxis Intervention: SCD's Lines/Catheters IV Catheter Type (from Nrsg): Portacath Assessment/Plan Chief Complaint/Hosp Course 1. [address] scan of the abdomen showing multiple large hepatic masses some of which suggest bleeding within the mass with extensive nodularity in the left retroperitoneum which may represent extrinsic portosystemic collateral vasculature adenopathy. Status post evaluation by general surgery. Surgery recommended pain control. Will involve pain management team. 2. History of chronic myelogenous leukemia. Apparently on chemotherapy. Patient's oncologist is Dr Rosetta Cedillo ([phone]). WIll have our oncologist evaluate the patient. 3. Leukocytosis. Etiology unclear. Probably steroid-induced. Monitor. On empiric antibiotics. Urinalysis on admission was positive. Urine culture negative so far. 4. Hyponatremia. Continue sodium chloride. 5. Macrocytic anemia. Monitor H&H closely. 6. Fluids, electrolytes, and nutrition. N.p.o. except for medications. 7. DVT prophylaxis. Bilateral sequential compression devices. 8. Gastrointestinal prophylaxis. Histamine 2 receptor blockers. 9. Plan. Continue pain control. Continue empiric antibiotics. Obtain pain management consult. Obtain oncology consult. Case discussed with Dr. Marie. Problems: Subjective 24 Hr Interval Summary Free Text/Dictation Complains of severe abdominal pain. Exam/Review of Systems Vital Signs Vitals Vital Signs Date Time Temp Pulse Resp B/P Pulse Ox O2 Delivery O2 Flow Rate FiO2 04/06/17 08:23 98.0 103 20 123/78 97 04/05/17 20:00 Nasal Cannula 2.0 Exam General: Thin, frail looking 67 year-old female lying in bed in no apparent distress. HEENT: Normocephalic, atraumatic. Eyes: Anicteric sclerae, conjunctivae clear. ENT: Nasal septum midline, oral mucosa moist. Neck supple, no JVD noticed. Respiratory: Bilaterally diminished breath sounds. Minimal use of accessory muscles of respiration. No adventitious breath sounds. Cardiovascular: S1, S2 heard. No murmurs or gallops. Abdomen: Distended and firm. Diffuse tenderness. Bowel sounds positive in all 4 quadrants. Genitourinary: Deferred. Extremities: No cyanosis, no clubbing. Bilateral 1+ pedal edema. Peripheral pulses palpable. Neurologic: Cranial nerves II through XII grossly intact. The patient is awake, alert, and oriented. Skin: Normal skin turgor. No skin rashes. Results Result Diagram: 04/05/17 1350 04/05/17 1350 Results 24 hrs Laboratory Tests Test 04/05/17 13:50 04/05/17 15:15 04/05/17 16:00 04/05/17 17:10 White Blood Count 14.3 #H Red Blood Count 2.61 L Hemoglobin 8.4 L Hematocrit 27.2 L Mean Corpuscular Volume 104.2 H Mean Corpuscular Hemoglobin 32.2 Mean Corpuscular Hemoglobin Concent 30.9 L Red Cell Distribution Width 20.3 H Platelet Count 193 Mean Platelet Volume 10.3 Neutrophils % 80.6 H Lymphocytes % 6.6 L Monocytes % 10.6 Eosinophils % 1.3 Basophils % 0.2 Nucleated Red Blood Cells % 0.0 Neutrophils # 11.5 H Lymphocytes # 0.9 Monocytes # 1.5 H Eosinophils # 0.2 Basophils # 0.0 Nucleated Red Blood Cells # 0.0 Prothrombin Time 16.5 H Prothrombin Time Ratio 1.3 INR International Normalized Ratio 1.32 Activated Partial Thromboplast Time 39.8 H Sodium Level 131 L Potassium Level 4.0 Chloride Level 95 L Carbon Dioxide Level 27 Anion Gap 13 Blood Urea Nitrogen 11 Creatinine 0.68 Glucose Level 70 Lactic Acid Level 1.0 0.7 0.8 Calcium Level 8.4 Total Bilirubin 0.4 Direct Bilirubin 0.00 Indirect Bilirubin 0.4 Aspartate Amino Transf (AST/SGOT) 84 H Alanine Aminotransferase (ALT/SGPT) 26 Alkaline Phosphatase 330 H Troponin I < 0.012 Total Protein 6.2 Albumin 3.3 Globulin 2.90 Albumin/Globulin Ratio 1.13 Free Thyroxine 1.19 Urine Color YELLOW Urine Clarity SLIGHTLY CLOUDY A Urine pH 6.0 Urine Specific [place] 1.014 Urine Ketones 1+ H Urine Nitrite NEGATIVE Urine Bilirubin NEGATIVE Urine Urobilinogen 2+ H Urine Leukocyte Esterase 1+ H Urine Microscopic RBC 0 Urine Microscopic WBC 80 H Urine Squamous Epithelial Cells MODERATE Urine Bacteria FEW A Urine Yeast (Budding) MODERATE A Urine Hemoglobin NEGATIVE Urine Glucose NEGATIVE Urine Total Protein 1+ H Test 04/05/17 19:40 Prothrombin Time 17.5 H Prothrombin Time Ratio 1.4 INR International Normalized Ratio 1.43 Activated Partial Thromboplast Time 39.7 H Medications Medications Current Medications Ondansetron HCl (Zofran Inj) 4 mg Q6H PRN IV NAUSEA AND/OR VOMITING; Start 04/05 at 18:30 Acetaminophen (Tylenol Tab) 650 mg Q6H PRN PO PAIN LEVEL 1-3 OR FEVER; Start at 18:30 Acetaminophen/ Hydrocodone Bitart ([place] (5/325)) 1 tab Q6H PRN PO MODERATE PAIN LEVEL 4-6; Start 04/05/17 at 18:30 Morphine Sulfate (morphine) 2 mg Q4H PRN IV SEVERE PAIN LEVEL 7-10 Last administered on 04/06/17 07:48; Admin Dose 2 MG; Start 04/05/17 at 18:30 Docusate Sodium (Colace) 100 mg Q12H PRN PO CONSTIPATION; Start 04/05/17 at 18: 30 Magnesium Hydroxide (Milk Of Mag) 30 ml DAILY PRN PO CONSTIPATION; Start at 18:30 Sodium Biphosphate/ Sodium Phosphate (Fleet Enema) 133 ml DAILY PRN [place] CONSTIPATION; Start 04/05/17 at 18:30 Lorazepam 0.5 mg 0.5 mg Q6H PRN IV ANXIETY; Start 04/05/17 at 18:30 Sodium Chloride (NS) 1,000 ml @ 100 mls/hr Q10H IV Last administered on 01:53; Admin Dose 100 MLS/HR; Start 04/05/17 at 18:07 Hydralazine HCl (Apresoline) 10 mg Q6H PRN IV ELEVATED BLOOD PRESSURE; Start at 18:30 Nitroglycerin (Nitroglycerin (Sl Tab) 0.4 Mg) 1 tab Q5M PRN SL ANGINA; Start at 18:30 Ascorbic Acid (Vitamin C) 500 mg DAILY PO ; Start 04/06/17 at 09:00 Cholecalciferol (Vitamin D) 1,000 unit DAILY PO ; Start 04/06/17 at 09:00 Docusate Sodium (Colace) 100 mg BID PO ; Start 04/05/17 at 21:00 Ferrous Sulfate (Ferrous Sulfate (Ec)) 325 mg DAILY PO ; Start 04/06/17 at 09:00 Loratadine (Claritin) 10 mg DAILY PO ; Start 04/06/17 at 09:00 Metoclopramide HCl (Reglan) 5 mg TID PRN PO NAUSEA AND/OR VOMITING; Start at 18:30 Polyethylene Glycol (Miralax) 17 gm DAILY PO ; Start 04/06/17 at 09:00 Multivitamins/ Minerals 1 tab 1 tab DAILY PO ; Start 04/06/17 at 09:00 Metronidazole (Flagyl 500 Mg (Pmx)) 100 ml @ 100 mls/hr Q8 IVPB Last administered on 04/06/17t 05:07; Admin Dose 100 MLS/HR; Start 04/05/17 at 22:00 Dronabinol (Marinol) 2.5 mg BID PO ; Start 04/05/17 at 21:00 Estradiol (Estrace) 0.5 mg QHS PO ; Start 04/05/17 at 21:00 Estradiol (Estrace) 1 mg DAILY PO ; Start 04/06/17 at 09:00 Imatinib Mesylate (Gleevec) 400 mg DAILY PO ; Start 04/06/17 at 09:00 Lubiprostone (Amitiza) 24 mcg BID PO ; Start 04/05/17 at 21:00 Methylprednisolone (Medrol) 6 mg DAILY PO ; Start 04/06/17 at 09:00 Modafinil (Provigil) 200 mg BID PO ; Start 04/05/17 at 21:00 Oxycodone HCl (Roxicodone) 30 mg Q12H PRN PO PAIN; Start 04/05/17 at 20:00 Pregabalin (Lyrica) 50 mg TID PO ; Start 04/05/17 at 22:00 Sildenafil Citrate 20 mg 20 mg TID PO ; Start 04/05/17 at 21:00 Levofloxacin/ Dextrose (Levaquin 750 Mg/ D5W 150 ml (Pmx)) 150 ml @ 100 mls/hr Q24H IVPB ; Start 04/06/17 at 17:00 Miscellaneous Information (Pending Santyl Order For Wound Care) This patient corrigan... PRN PRN XX WOUND CARE; Start 04/06/17 at 04:00 ADITI GROSS NP Apr 06, 2017 11:11
--- NOTE | 2017-04-06 11:35 | CONS ---
Date/Time of Note Date/Time of Note DATE: 04/06/17 TIME: 11:25 Assessment/Plan Assessment/Plan Additional Assessment/Plan Long conversation concerning pain management at this time she and I have decided to start off on a ROOM INSPECTOR she assures me that she is able to control her own pain and is familiar with the use of patient-controlled analgesia machine. I will change her CODE STATUS to DO NOT RESUSCITATE per her request and reach out to her family members. Prognosis is extremely grim. Consultation Date/Type/Reason Admit Date/Time Date of Consultation: Apr 06, 2017 Type of Consultation: Pain management palliative car Hx of Present Illness 67-year-old female well-known to me readmitted to [facility] from [facility] with increasing abdominal discomfort. Patient has a past medical history of chronic myelogenous leukemia she is unclear as to when the last chemotherapy was given but the last time I saw her was approximately 2 weeks ago and she states not since that time. Patient was seen by surgical consultation in emergency room which felt patient was not a candidate for any surgical intervention. Please refer to results of CT scan but evidence for new hepatic metastasis with preliminary evidence of possible hemorrhage within the lesions. States her pain is primarily epigastric severe without radiations into her back lower quadrants or flanks significantly interferes with her eating have mood and sleeping. Pain was sudden in onset described as severe current medications are not controlling her pain is any other systemic symptom of nausea vomiting chest pain shortness of breath I have known her from the past there is no history of purposeful oversedation or asking for increasing doses of pain control medications there is no history of smoking drug abuse or alcohol addictions she does not insist on certain pain control medications as an outpatient she was taken a combination of OxyContin and [place] for pain management when this episode occurred these pain medications were ineffective she has been admitted for stabilization and workup. From a palliative care standpoint of had an extensive conversation with her she wants to make all decisions on her own behalf and has made it very clear she does not want to have cardiopulmonary resuscitation or to live on artificial life support measures. In the event that she cannot make decisions on her own behalf first her will make decisions on her behalf and and secondarily her sister. Any other palliative conversations have been deferred per her request at this time until her pain is better controlled. Constitutional: febrile, No chills, No diaphoresis Eyes: No no complaints ENT: No no complaints Respiratory: No cough, No no complaints, No shortness of breath Cardiovascular: No chest pain, No edema, No lightheadedness, No palpitations Gastrointestinal: flatus, pain Genitourinary: No no complaints Musculoskeletal: No no complaints Skin: No no complaints Neurologic: No confusion, No headache, No syncope Endocrine: No polyuria Psychological: anxiety Past Medical History Medical History: cancer (CML with recent chemo), other (bowel obstruction, liver lesions) Past Surgical History Past Surgical Hx: other (korina cath placement, bilateral hip replacement, explore lap) Family History Significant Family History: no pertinent family hx Social History Alcohol Use: none Smoking Status: Former smoker Drug Use: none Exam/Review of Systems Vital Signs Vitals Vital Signs Date Time Temp Pulse Resp B/P Pulse Ox O2 Delivery O2 Flow Rate FiO2 04/06/17 08:23 98.0 103 20 123/78 97 04/05/17 20:00 Nasal Cannula 2.0 Exam Constitutional: distress, frail Psych: anxiety, nl mood/affect, no complaints Head: atraumatic, normocephalic Eyes: EOMI, PERRL, nl conjunctiva, nl lids, nl sclera Neck: No bruits, No jvd, No masses, No non-tender, No nuchal rigidity, No other , No supple, No thyromegaly Respiratory: clear to auscultation, normal air movement, No congested cough, No crackles/rales, No diminished breath sounds, No intercostal retraction, No labored breathing, No other, No respirations, No tactile fremitus, No wheezing Cardiovascular: No S3, No S4, No bruits, No diastolic murmur, No edema, No gallop, No irregular rhythm, No jugular venous distention (JVD), No murmurs/ extra sounds, No nl pulses, No other, No regular rate and rhythm, No rub, No systolic murmur Gastrointestinal: bowel sounds, nl liver, spleen, soft, tender Musculoskeletal: No joint tenderness, No muscle tone, No muscle weakness, No nl extremities to inspection, No nl gait and stance, No other, No range of motion, No spine non-tender, No swelling Extremities: No calf tenderness, No clubbing, No cyanosis, No edema, No normal pulses, No other, No palpable cord, No pitting pedal edema, No tenderness Neurological: APPIAN DEVELOPER II-XII intact, nl mental status, nl speech, No DTR's symmetric, No confused, No focal weakness, No lethargic, No numbness , No other, No reflexes, No unresponsive Results Result Diagram: 04/05/17 1350 04/05/17 1350 Results 24 hrs Laboratory Tests Test 04/05/17 13:50 04/05/17 15:15 04/05/17 16:00 04/05/17 17:10 White Blood Count 14.3 #H Red Blood Count 2.61 L Hemoglobin 8.4 L Hematocrit 27.2 L Mean Corpuscular Volume 104.2 H Mean Corpuscular Hemoglobin 32.2 Mean Corpuscular Hemoglobin Concent 30.9 L Red Cell Distribution Width 20.3 H Platelet Count 193 Mean Platelet Volume 10.3 Neutrophils % 80.6 H Lymphocytes % 6.6 L Monocytes % 10.6 Eosinophils % 1.3 Basophils % 0.2 Nucleated Red Blood Cells % 0.0 Neutrophils # 11.5 H Lymphocytes # 0.9 Monocytes # 1.5 H Eosinophils # 0.2 Basophils # 0.0 Nucleated Red Blood Cells # 0.0 Prothrombin Time 16.5 H Prothrombin Time Ratio 1.3 INR International Normalized Ratio 1.32 Activated Partial Thromboplast Time 39.8 H Sodium Level 131 L Potassium Level 4.0 Chloride Level 95 L Carbon Dioxide Level 27 Anion Gap 13 Blood Urea Nitrogen 11 Creatinine 0.68 Glucose Level 70 Lactic Acid Level 1.0 0.7 0.8 Calcium Level 8.4 Total Bilirubin 0.4 Direct Bilirubin 0.00 Indirect Bilirubin 0.4 Aspartate Amino Transf (AST/SGOT) 84 H Alanine Aminotransferase (ALT/SGPT) 26 Alkaline Phosphatase 330 H Troponin I < 0.012 Total Protein 6.2 Albumin 3.3 Globulin 2.90 Albumin/Globulin Ratio 1.13 Free Thyroxine 1.19 Urine Color YELLOW Urine Clarity SLIGHTLY CLOUDY A Urine pH 6.0 Urine Specific [place] 1.014 Urine Ketones 1+ H Urine Nitrite NEGATIVE Urine Bilirubin NEGATIVE Urine Urobilinogen 2+ H Urine Leukocyte Esterase 1+ H Urine Microscopic RBC 0 Urine Microscopic WBC 80 H Urine Squamous Epithelial Cells MODERATE Urine Bacteria FEW A Urine Yeast (Budding) MODERATE A Urine Hemoglobin NEGATIVE Urine Glucose NEGATIVE Urine Total Protein 1+ H Test 04/05/17 19:40 Prothrombin Time 17.5 H Prothrombin Time Ratio 1.4 INR International Normalized Ratio 1.43 Activated Partial Thromboplast Time 39.7 H Medications Medications Current Medications Ondansetron HCl (Zofran Inj) 4 mg Q6H PRN IV NAUSEA AND/OR VOMITING; Start 04/05 at 18:30 Acetaminophen (Tylenol Tab) 650 mg Q6H PRN PO PAIN LEVEL 1-3 OR FEVER; Start at 18:30 Acetaminophen/ Hydrocodone Bitart ([place] (5/325)) 1 tab Q6H PRN PO MODERATE PAIN LEVEL 4-6; Start 04/05/17 at 18:30 Morphine Sulfate (morphine) 2 mg Q4H PRN IV SEVERE PAIN LEVEL 7-10 Last administered on 04/06/17 07:48; Admin Dose 2 MG; Start 04/05/17 at 18:30 Docusate Sodium (Colace) 100 mg Q12H PRN PO CONSTIPATION; Start 04/05/17 at 18: 30 Magnesium Hydroxide (Milk Of Mag) 30 ml DAILY PRN PO CONSTIPATION; Start at 18:30 Sodium Biphosphate/ Sodium Phosphate (Fleet Enema) 133 ml DAILY PRN [place] CONSTIPATION; Start 04/05/17 at 18:30 Lorazepam 0.5 mg 0.5 mg Q6H PRN IV ANXIETY; Start 04/05/17 at 18:30 Sodium Chloride (NS) 1,000 ml @ 100 mls/hr Q10H IV Last administered on 01:53; Admin Dose 100 MLS/HR; Start 04/05/17 at 18:07 Hydralazine HCl (Apresoline) 10 mg Q6H PRN IV ELEVATED BLOOD PRESSURE; Start at 18:30 Nitroglycerin (Nitroglycerin (Sl Tab) 0.4 Mg) 1 tab Q5M PRN SL ANGINA; Start at 18:30 Ascorbic Acid (Vitamin C) 500 mg DAILY PO ; Start 04/06/17 at 09:00 Cholecalciferol (Vitamin D) 1,000 unit DAILY PO ; Start 04/06/17 at 09:00 Docusate Sodium (Colace) 100 mg BID PO ; Start 04/05/17 at 21:00 Ferrous Sulfate (Ferrous Sulfate (Ec)) 325 mg DAILY PO ; Start 04/06/17 at 09:00 Loratadine (Claritin) 10 mg DAILY PO ; Start 04/06/17 at 09:00 Metoclopramide HCl (Reglan) 5 mg TID PRN PO NAUSEA AND/OR VOMITING; Start at 18:30 Polyethylene Glycol (Miralax) 17 gm DAILY PO ; Start 04/06/17 at 09:00 Multivitamins/ Minerals 1 tab 1 tab DAILY PO ; Start 04/06/17 at 09:00 Metronidazole (Flagyl 500 Mg (Pmx)) 100 ml @ 100 mls/hr Q8 IVPB Last administered on 04/06/17t 05:07; Admin Dose 100 MLS/HR; Start 04/05/17 at 22:00 Dronabinol (Marinol) 2.5 mg BID PO ; Start 04/05/17 at 21:00 Estradiol (Estrace) 0.5 mg QHS PO ; Start 04/05/17 at 21:00 Estradiol (Estrace) 1 mg DAILY PO ; Start 04/06/17 at 09:00 Imatinib Mesylate (Gleevec) 400 mg DAILY PO ; Start 04/06/17 at 09:00 Lubiprostone (Amitiza) 24 mcg BID PO ; Start 04/05/17 at 21:00 Methylprednisolone (Medrol) 6 mg DAILY PO ; Start 04/06/17 at 09:00 Modafinil (Provigil) 200 mg BID PO ; Start 04/05/17 at 21:00 Oxycodone HCl (Roxicodone) 30 mg Q12H PRN PO PAIN; Start 04/05/17 at 20:00 Pregabalin (Lyrica) 50 mg TID PO ; Start 04/05/17 at 22:00 Sildenafil Citrate 20 mg 20 mg TID PO ; Start 04/05/17 at 21:00 Levofloxacin/ Dextrose (Levaquin 750 Mg/ D5W 150 ml (Pmx)) 150 ml @ 100 mls/hr Q24H IVPB ; Start 04/06/17 at 17:00 Miscellaneous Information (Pending Santyl Order For Wound Care) This patient corrigan... PRN PRN XX WOUND CARE; Start 04/06/17 at 04:00 YASH MEEKS Apr 06, 2017 11:34
--- NOTE | 2017-04-06 12:04 | CONS ---
Date/Time of Note Date/Time of Note DATE: 04/06/17 TIME: 11:49 Assessment/Plan Assessment/Plan Additional Assessment/Plan Pt has abdominal pain and possible fever, although she is not currently febrile. She is currently on antibiotics. Etiology of the process is not presently clear. 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 The liver lesions are apparently of long standing and are neuroendocrine in nature although full details are not available. She should f/u with her regular oncologist when she leaves the hospital, but the liver lesions do not require biopsy since the histology is apparently already known. The pt is very frail, weak and malnourished, so I doubt an aggressive course would be pursued. I am not sure why IVIG has been given. I will at least recheck QIG's presently. DNR status noted. I agree with comfort measures. I will try to reach her usual oncologist after the weekend. Consultation Date/Type/Reason Admit Date/Time Date of Consultation: Apr 06, 2017 Type of Consultation: Heme/Onc Reason for Consultation CML Referring Provider: ISHAN MILLER Hx of Present Illness 67 yo woman admitted for abdominal pain and who has history of CML treated for years with Gleevec. Pt also says that she has neuroendocrine tumors of the liver that her regular oncologist is aware of and that she is not on active treatment. Pt also gets monthly IVIG for unclear reasons. Pt was admitted for abdominal pain and possibly fever. She also has dementia and is not a good historian. Constitutional: febrile, No chills, No diaphoresis Eyes: No no complaints ENT: No no complaints Respiratory: No cough, No no complaints, No shortness of breath Cardiovascular: No chest pain, No edema, No lightheadedness, No palpitations Gastrointestinal: flatus, pain Genitourinary: No no complaints Musculoskeletal: No no complaints Skin: No no complaints Neurologic: No confusion, No headache, No syncope Endocrine: No polyuria Psychological: anxiety, nl mood/affect, no complaints Past Medical History Medical History: cancer (CML with recent chemo), other (bowel obstruction, liver lesions) Past Surgical History Past Surgical Hx: other (korina cath placement, bilateral hip replacement, explore lap) Social History Alcohol Use: none Smoking Status: Former smoker Drug Use: none Exam/Review of Systems Vital Signs Vitals Vital Signs Date Time Temp Pulse Resp B/P Pulse Ox O2 Delivery O2 Flow Rate FiO2 04/06/17 08:23 98.0 103 20 123/78 97 04/05/17 20:00 Nasal Cannula 2.0 Exam Constitutional: alert, other (verbal but not good historian) Head: normocephalic, other (bitemporal muscle wasting) Eyes: nl conjunctiva, other (pallor) Neck: supple Respiratory: clear to auscultation Cardiovascular: regular rate and rhythm Gastrointestinal: distended, other (tympanitic) Neurological: confused, other (diffuse muscle weakness) Skin: other (atrophic) Results Result Diagram: 04/05/17 1350 04/05/17 1350 Results 24 hrs Laboratory Tests Test 04/05/17 13:50 04/05/17 15:15 04/05/17 16:00 04/05/17 17:10 White Blood Count 14.3 #H Red Blood Count 2.61 L Hemoglobin 8.4 L Hematocrit 27.2 L Mean Corpuscular Volume 104.2 H Mean Corpuscular Hemoglobin 32.2 Mean Corpuscular Hemoglobin Concent 30.9 L Red Cell Distribution Width 20.3 H Platelet Count 193 Mean Platelet Volume 10.3 Neutrophils % 80.6 H Lymphocytes % 6.6 L Monocytes % 10.6 Eosinophils % 1.3 Basophils % 0.2 Nucleated Red Blood Cells % 0.0 Neutrophils # 11.5 H Lymphocytes # 0.9 Monocytes # 1.5 H Eosinophils # 0.2 Basophils # 0.0 Nucleated Red Blood Cells # 0.0 Prothrombin Time 16.5 H Prothrombin Time Ratio 1.3 INR International Normalized Ratio 1.32 Activated Partial Thromboplast Time 39.8 H Sodium Level 131 L Potassium Level 4.0 Chloride Level 95 L Carbon Dioxide Level 27 Anion Gap 13 Blood Urea Nitrogen 11 Creatinine 0.68 Glucose Level 70 Lactic Acid Level 1.0 0.7 0.8 Calcium Level 8.4 Total Bilirubin 0.4 Direct Bilirubin 0.00 Indirect Bilirubin 0.4 Aspartate Amino Transf (AST/SGOT) 84 H Alanine Aminotransferase (ALT/SGPT) 26 Alkaline Phosphatase 330 H Troponin I < 0.012 Total Protein 6.2 Albumin 3.3 Globulin 2.90 Albumin/Globulin Ratio 1.13 Free Thyroxine 1.19 Urine Color YELLOW Urine Clarity SLIGHTLY CLOUDY A Urine pH 6.0 Urine Specific [place] 1.014 Urine Ketones 1+ H Urine Nitrite NEGATIVE Urine Bilirubin NEGATIVE Urine Urobilinogen 2+ H Urine Leukocyte Esterase 1+ H Urine Microscopic RBC 0 Urine Microscopic WBC 80 H Urine Squamous Epithelial Cells MODERATE Urine Bacteria FEW A Urine Yeast (Budding) MODERATE A Urine Hemoglobin NEGATIVE Urine Glucose NEGATIVE Urine Total Protein 1+ H Test 04/05/17 19:40 Prothrombin Time 17.5 H Prothrombin Time Ratio 1.4 INR International Normalized Ratio 1.43 Activated Partial Thromboplast Time 39.7 H Medications Medications Current Medications Ondansetron HCl (Zofran Inj) 4 mg Q6H PRN IV NAUSEA AND/OR VOMITING; Start 04/05 at 18:30 Acetaminophen (Tylenol Tab) 650 mg Q6H PRN PO PAIN LEVEL 1-3 OR FEVER; Start at 18:30 Docusate Sodium (Colace) 100 mg Q12H PRN PO CONSTIPATION; Start 04/05/17 at 18: 30 Magnesium Hydroxide (Milk Of Mag) 30 ml DAILY PRN PO CONSTIPATION; Start at 18:30 Sodium Biphosphate/ Sodium Phosphate 133 ml 133 ml DAILY PRN IN CONSTIPATION; Start 04/05/17 at 18:30 Sodium Chloride (NS) 1,000 ml @ 100 mls/hr Q10H IV Last administered on t 01:53; Admin Dose 100 MLS/HR; Start 04/05/17 at 18:07 Hydralazine HCl (Apresoline) 10 mg Q6H PRN IV ELEVATED BLOOD PRESSURE; Start at 18:30 Nitroglycerin (Nitroglycerin (Sl Tab) 0.4 Mg) 1 tab Q5M PRN SL ANGINA; Start at 18:30 Ascorbic Acid (Vitamin C) 500 mg DAILY PO ; Start 04/06/17 at 09:00 Cholecalciferol (Vitamin D) 1,000 unit DAILY PO ; Start 04/06/17 at 09:00 Docusate Sodium (Colace) 100 mg BID PO ; Start 04/05/17 at 21:00 Ferrous Sulfate (Ferrous Sulfate (Ec)) 325 mg DAILY PO ; Start 04/06/17 at 09:00 Loratadine (Claritin) 10 mg DAILY PO ; Start 04/06/17 at 09:00 Metoclopramide HCl (Reglan) 5 mg TID PRN PO NAUSEA AND/OR VOMITING; Start at 18:30 Polyethylene Glycol (Miralax) 17 gm DAILY PO ; Start 04/06/17 at 09:00 Multivitamins/ Minerals 1 tab 1 tab DAILY PO ; Start 04/06/17 at 09:00 Metronidazole (Flagyl 500 Mg (Pmx)) 100 ml @ 100 mls/hr Q8 IVPB Last administered on 04/06/17t 05:07; Admin Dose 100 MLS/HR; Start 04/05/17 at 22:00 Dronabinol (Marinol) 2.5 mg BID PO ; Start 04/05/17 at 21:00 Estradiol (Estrace) 0.5 mg QHS PO ; Start 04/05/17 at 21:00 Estradiol (Estrace) 1 mg DAILY PO ; Start 04/06/17 at 09:00 Imatinib Mesylate (Gleevec) 400 mg DAILY PO ; Start 04/06/17 at 09:00 Lubiprostone (Amitiza) 24 mcg BID PO ; Start 04/05/17 at 21:00 Methylprednisolone (Medrol) 6 mg DAILY PO ; Start 04/06/17 at 09:00 Sildenafil Citrate 20 mg 20 mg TID PO ; Start 04/05/17 at 21:00 Levofloxacin/ Dextrose (Levaquin 750 Mg/ D5W 150 ml (Pmx)) 150 ml @ 100 mls/hr Q24H IVPB ; Start 04/06/17 at 17:00 Miscellaneous Information (Pending Santyl Order For Wound Care) This patient corrigan... PRN PRN XX WOUND CARE; Start 04/06/17 at 04:00 Famotidine (Pepcid Iv) 20 mg BID IV ; Start 04/06/17 at 21:00 Hydromorphone HCl (Dilaudid CAD ENGINEER) 0.3 MG/HR CONTINUOUS RATE ... Q4PCA IV ; Start 04/06/17 at 11:30 DHAVAL PERERA MD Apr 06, 2017 12:01
[2017-04-06] MEDS: HYDROmorphONE 0.2 MG/ML PCA IV SCH ×2 (13:23→22:40)
[2017-04-06 14:00] VITALS: BP 138/74; RESP 20
[2017-04-06] MEDS: LEVOFLOXACIN 750MG/D5W (PMX) 150 ML IVPB SCH (17:51)
[2017-04-06] MEDS: ONDANSETRON 4 MG INJ IV PRN (20:36)
[2017-04-06] MEDS: FAMOTIDINE 20 MG INJ IV SCH (20:36)
[2017-04-06 21:07] VITALS: BP 129/74; RESP 19
--- NOTE | 2017-04-06 23:24 | PN ---
Date/Time of Note Date/Time of Note DATE: 04/06/17 TIME: 23:18 Assessment/Plan Lines/Catheters IV [facility] Type (from [facility]): Portacath Assessment/Plan Chief Complaint/Hosp Course 1. Intrahepatic masses with peritoneal lesions: CT abd: multiple large hepatic masses, some of which suggest bleeding within the mass and extensive nodularity in the left retroperitoneum which may represent extensive portosystemic collateral vasculature or adenopathy. 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 Patient does not want aggressive interventions , DNR/DNI status -no surgical interventions required at this time -oncological f/u and tx -pain management appreciated 2. Severe abdominal pain: 2/2 above -pain management per pain service -as above 3. Anemia: likely 2/2 recent chemo + CML vs. acute bleed -monitor -transfuse as needed 4. Leukocytosis: recent chemo + uti; fevers -supportive -abx 5. Hyponatremia: likely 2/2 dehydration + vomiting + liver disease -optimize lytes -judicious fluid management 6. Elevated liver enzymes: 2/2 #1 -as above 7. UTI: no dysuria -encourage frequent bladder emptying -abx Thank you, Problems: Subjective 24 Hr Interval Summary Abdominal pain today. Code status DNR. No f/c. No n/v. No cp/sob. No cough. No corrigan/dizzy/visual or neuro changes. No dysuria. Bowel function. Exam/Review of Systems Vital Signs Vitals Vital Signs Date Time Temp Pulse Resp B/P Pulse Ox O2 Delivery O2 Flow Rate FiO2 04/06/17 22:55 18 04/06/17 21:07 99.0 113 129/74 98 04/06/17 13:00 Nasal Cannula 2.0 Exam Free Text/Dictation Constitutional: alert, oriented Psych: anxious Head: atraumatic, normocephalic Eyes: nl lids, nl sclera ENMT: mucosa pink and moist Neck: non-tender, supple Respiratory: clear to auscultation Cardiovascular: regular rate and rhythm, No edema Gastrointestinal: distended, hepatomegaly, surgical scars, tender Musculoskeletal: nl extremities to inspection Extremities: normal pulses, No edema Neurological: nl mental status, nl speech Skin: nl turgor Lymph: enlarged Results Result Diagram: 04/05/17 1350 04/05/17 1350 ELIER MONTILLA MD Apr 06, 2017 23:24
[2017-04-07 02:00] VITALS: BP 120/68; RESP 19
[2017-04-07] MEDS: ONDANSETRON 4 MG INJ IV PRN ×3 (02:22→20:44)
[2017-04-07] MEDS: SOD CHLORIDE 0.9% 1,000 ML IV SCH ×2 (02:26→10:07)
[2017-04-07 05:32] LABS: ADD SCAN DIFF NO
[2017-04-07] MEDS: metroNIDAZOLE 500 MG/NS (PMX) 100 ML IVPB SCH ×3 (05:35→21:39)
[2017-04-07 05:40] LABS: BASOPHILS % 0.3 % (0.0-2.0); EOSINOPHILS # 0.3 10^3/ul (0.0-0.5); EOSINOPHILS % 2.4 % (0.0-7.0); HEMATOCRIT 23.5 % (37.0-47.0); HEMOGLOBIN 7.2 g/dl (12.0-16.0); LYMPHOCYTES # 0.7 10^3/ul (0.8-2.9); MEAN CORPUSCULAR HEMOGLOBIN 32.9 pg (29.0-33.0); MEAN CORPUSCULAR HGB CONC 30.6 g/dl (32.0-37.0); MEAN CORPUSCULAR VOLUME 107.3 fl (82.0-101.0); MEAN PLATELET VOLUME 10.1 fl (7.4-10.4); MONOCYTE # 1.4 10^3/ul (0.3-0.9); MONOCYTES % 12.2 % (0.0-11.0); NEUTROPHILS % 78.4 % (39.0-77.0); PLATELET COUNT 174 10^3/UL (140-415); RED BLOOD COUNT 2.19 10^6/ul (4.20-5.40); RED CELL DISTRIBUTION WIDTH 19.6 % (11.5-14.5); WHITE BLOOD COUNT 11.4 10^3/ul (4.8-10.8)
[2017-04-07 06:14] LABS: MAGNESIUM 1.2 mg/dl (1.7-2.5); PHOSPHORUS 3.2 mg/dl (2.5-4.9)
[2017-04-07 06:14] LABS: CALCIUM 8.5 mg/dl (8.4-10.2); CREATININE 0.55 mg/dl (0.44-1.00); POTASSIUM 3.8 mmol/L (3.5-5.1)
[2017-04-07] MEDS: PANTOPRAZOLE (EC) 40 MG TAB PO SCH ×2 (07:30→17:19)
[2017-04-07 08:13] VITALS: BP 115/66; RESP 20
[2017-04-07] MEDS: FAMOTIDINE 20 MG INJ IV SCH ×2 (08:32→20:30)
[2017-04-07] MEDS: ASCORBIC ACID 500 MG TAB PO SCH (09:00)
[2017-04-07] MEDS: ESTRADIOL 1 MG TAB PO SCH ×2 (09:00→21:00)
[2017-04-07] MEDS: IMATINIB 400 MG TAB PO SCH (09:00)
[2017-04-07] MEDS: FERROUS SULFATE (EC) 325 MG TAB PO SCH (09:00)
[2017-04-07] MEDS: DOCUSATE SODIUM 100 MG CAP PO SCH ×2 (09:00→21:00)
[2017-04-07] MEDS: LORATADINE 10 MG TAB PO SCH (09:00)
[2017-04-07] MEDS: MULTIVITAMINS/MINERALS TAB PO SCH (09:00)
[2017-04-07] MEDS: DRONABINOL 2.5 MG CAP PO SCH ×2 (09:00→21:00)
[2017-04-07] MEDS: CHOLECALCIFEROL 1,000 UNIT TAB PO SCH (09:00)
[2017-04-07] MEDS: METHYLPREDNISOLONE 4 MG TAB PO SCH (09:00)
[2017-04-07] MEDS: LUBIPROSTONE 24 MCG CAP PO SCH ×2 (09:00→21:00)
[2017-04-07] MEDS: POLYETHYLENE GLYCOL 17 GM PACKET PO SCH (09:00)
[2017-04-07] MEDS: SILDENAFIL 20 MG TAB PO SCH ×3 (09:00→21:00)
--- NOTE | 2017-04-07 10:50 | PN ---
Date/Time of Note Date/Time of Note DATE: 04/07/17 TIME: 10:44 Assessment/Plan VTE Prophylaxis VTE Prophylaxis Intervention: other (per primary MD) Lines/Catheters [facility] korina catheter Assessment/Plan Chief Complaint/Hosp Course 67 yo woman admitted for abdominal pain and who has history of CML treated for years with Gleevec. Pt also says that she has neuroendocrine tumors of the liver that her regular oncologist is aware of and that she is not on active treatment. Pt also gets monthly IVIG for unclear reasons. Pt was admitted for abdominal pain and possibly fever. She also has dementia and is not a good historian. Problems: Assessment/Plan Hgb down to 7.2. This is likely due to rehydration. Anemia is not due to chemotherapy since she has not been getting any except for the Gleevec. She is not eating well, so poor nutrition can also be contributing. She may get symptomatic relief from RBC transfusion. Pt has not had bowel movement, so laxatives may help, especially with narcotics now being given. I would first try to transfuse to get better bowel perfusion. Overall she is very fragile and it is not clear that any aggressive interventions are appropriate. Subjective 24 Hr Interval Summary Free Text/Dictation Pt is more comfortable but is getting narcotics. Exam/Review of Systems Vital Signs Vitals Vital Signs Date Time Temp Pulse Resp B/P Pulse Ox O2 Delivery O2 Flow Rate FiO2 04/07/17 09:42 18 04/07/17 08:13 97.8 98 115/66 98 04/06/17 20:00 Nasal Cannula 2.0 Intake and Output 04/06/17 04/06/17 04/07/17 15:00 23:00 07:00 Intake Total 1000 ml 850 ml 850 ml Balance 1000 ml 850 ml 850 ml Exam Constitutional: alert Head: normocephalic Eyes: other (pallor) Neck: supple Respiratory: clear to auscultation Cardiovascular: regular rate and rhythm Gastrointestinal: distended, other (mildly tender) Results Result Diagram: 04/07/17 0510 04/07/17 0510 Results 24 hrs Laboratory Tests Test 04/07/17 05:10 04/07/17 05:16 White Blood Count 11.4 #H Red Blood Count 2.19 L Hemoglobin 7.2 L Hematocrit 23.5 L Mean Corpuscular Volume 107.3 H Mean Corpuscular Hemoglobin 32.9 Mean Corpuscular Hemoglobin Concent 30.6 L Red Cell Distribution Width 19.6 H Platelet Count 174 Mean Platelet Volume 10.1 Neutrophils % 78.4 H Lymphocytes % 6.0 L Monocytes % 12.2 H Eosinophils % 2.4 Basophils % 0.3 Nucleated Red Blood Cells % 0.0 Neutrophils # 9.0 H Lymphocytes # 0.7 L Monocytes # 1.4 H Eosinophils # 0.3 Basophils # 0.0 Nucleated Red Blood Cells # 0.0 Sodium Level 138 Potassium Level 3.8 Chloride Level 100 Carbon Dioxide Level 21 Anion Gap 21 #H Blood Urea Nitrogen 8 Creatinine 0.55 Glucose Level 57 #L Calcium Level 8.5 Phosphorus Level 3.2 Magnesium Level 1.2 L Medications Medications Current Medications Ondansetron HCl (Zofran Inj) 4 mg Q6H PRN IV NAUSEA AND/OR VOMITING Last administered on 04/07/17 08:32; Admin Dose 4 MG; Start 04/05/17 at 18:30 Acetaminophen (Tylenol Tab) 650 mg Q6H PRN PO PAIN LEVEL 1-3 OR FEVER; Start at 18:30 Docusate Sodium (Colace) 100 mg Q12H PRN PO CONSTIPATION; Start 04/05/17 at 18: 30 Magnesium Hydroxide (Milk Of Mag) 30 ml DAILY PRN PO CONSTIPATION; Start at 18:30 Sodium Biphosphate/ Sodium Phosphate 133 ml 133 ml DAILY PRN [place] CONSTIPATION; Start 04/05/17 at 18:30 Sodium Chloride (NS) 1,000 ml @ 100 mls/hr Q10H IV Last administered on 02:26; Admin Dose 100 MLS/HR; Start 04/05/17 at 18:07 Hydralazine HCl (Apresoline) 10 mg Q6H PRN IV ELEVATED BLOOD PRESSURE; Start at 18:30 Nitroglycerin (Nitroglycerin (Sl Tab) 0.4 Mg) 1 tab Q5M PRN SL ANGINA; Start at 18:30 Ascorbic Acid (Vitamin C) 500 mg DAILY PO ; Start 04/06/17 at 09:00 Cholecalciferol (Vitamin D) 1,000 unit DAILY PO ; Start 04/06/17 at 09:00 Docusate Sodium (Colace) 100 mg BID PO ; Start 04/05/17 at 21:00 Ferrous Sulfate (Ferrous Sulfate (Ec)) 325 mg DAILY PO ; Start 04/06/17 at 09:00 Loratadine (Claritin) 10 mg DAILY PO ; Start 04/06/17 at 09:00 Metoclopramide HCl (Reglan) 5 mg TID PRN PO NAUSEA AND/OR VOMITING; Start at 18:30 Polyethylene Glycol (Miralax) 17 gm DAILY PO ; Start 04/06/17 at 09:00 Multivitamins/ Minerals 1 tab 1 tab DAILY PO ; Start 04/06/17 at 09:00 Metronidazole (Flagyl 500 Mg (Pmx)) 100 ml @ 100 mls/hr Q8 IVPB Last administered on 04/07/17 05:35; Admin Dose 100 MLS/HR; Start 04/05/17 at 22:00 Dronabinol (Marinol) 2.5 mg BID PO ; Start 04/05/17 at 21:00 Estradiol (Estrace) 0.5 mg QHS PO ; Start 04/05/17 at 21:00 Estradiol (Estrace) 1 mg DAILY PO ; Start 04/06/17 at 09:00 Imatinib Mesylate (Gleevec) 400 mg DAILY PO ; Start 04/06/17 at 09:00 Lubiprostone (Amitiza) 24 mcg BID PO ; Start 04/05/17 at 21:00 Methylprednisolone (Medrol) 6 mg DAILY PO ; Start 04/06/17 at 09:00 Sildenafil Citrate 20 mg 20 mg TID PO ; Start 04/05/17 at 21:00 Levofloxacin/ Dextrose (Levaquin 750 Mg/ D5W 150 ml (Pmx)) 150 ml @ 100 mls/hr Q24H IVPB Last administered on 04/06/17 17:51; Admin Dose 100 MLS/HR; Start 04/06/17 at 17:00 Miscellaneous Information (Pending Santyl Order For Wound Care) This patient corrigan... PRN PRN XX WOUND CARE; Start 04/06/17 at 04:00 Famotidine (Pepcid Iv) 20 mg BID IV Last administered on 04/07/17 08:32; Admin Dose 20 MG; Start 04/06/17 at 21:00 Hydromorphone HCl (Dilaudid GREENHOUSE TRANSPLANTER) 0.3 MG/HR CONTINUOUS RATE ... Q4PCA IV Last administered on 04/06/17t 22:40; Admin Dose 6 MG; Start 04/06/17 at 11:30 DHAVAL PERERA MD Apr 07, 2017 10:49
[2017-04-07] MEDS ORDERED: BISACODYL 10 MG SUPP PR PRN (12:00)
[2017-04-07] MEDS ORDERED: BISACODYL 10 MG SUPP PR ONE (12:00)
--- NOTE | 2017-04-07 12:24 | PN ---
Date/Time of Note Date/Time of Note DATE: 04/07/17 TIME: 12:03 Assessment/Plan VTE Prophylaxis VTE Prophylaxis Intervention: SCD's Lines/Catheters IV Catheter Type (from Nrsg): korina catheter Assessment/Plan Chief Complaint/Hosp Course 1. Abdominal pain likely secondary to underlying intrahepatic masses with peritoneal lesions. Improving pain. -> Surgery/oncology evaluation appreciated. Conservative management as patient patient does not want aggressive interventions, DNR/DNI status -> Continue pain management. 2. History of chronic myelogenous leukemia. Treated for years with Gleevec. -> Oncology evaluation appreciated. Again, patient did not want any aggressive treatment. 3. Leukocytosis-likely chemo induced. Consider stopping antibiotics once blood culture available. 4. Hypoglycemia likely secondary to poor oral intake vs other endocrine disorders. ->Obtain A1c. Consider endocrinology if indicated. ->Change IV to dextrose containing solution. Monitor blood glucose and treat as needed. -> Obtain speech/swallow therapy. 5. Anemia of chronic illness. -> Transfusion has been ordered by hematology. There is no acute bleeding episodes. Will monitor H&H. 6. Hyponatremia likely secondary to dehydration. Resolved. Will monitor. DVT prophylaxis. Bilateral sequential compression devices. Gastrointestinal prophylaxis. Histamine 2 receptor blockers. Plan. Continue pain control. Follow-up with speech therapy recommendation on starting diet. Follow-up with hematology/surgery recommendation. Case discussed with Dr. Marie. Problems: Subjective 24 Hr Interval Summary Free Text/Dictation Patient lying in bed. Has been refusing to eat or drink. Refused oral medications. Exam/Review of Systems Vital Signs Vitals Vital Signs Date Time Temp Pulse Resp B/P Pulse Ox O2 Delivery O2 Flow Rate FiO2 04/07/17 09:42 18 04/07/17 08:13 97.8 98 115/66 98 04/06/17 20:00 Nasal Cannula 2.0 Intake and Output 04/06/17 04/06/17 04/07/17 15:00 23:00 07:00 Intake Total 1000 ml 850 ml 850 ml Balance 1000 ml 850 ml 850 ml Exam General: Frail looking female, not in any acute distress . HEENT: Normocephalic, Atraumatic, No laceration or hematoma; Eyes: PEERL, Conjunctiva clear, Anicteric sclera Neck: Supple without any lymphadenopathy, nontender, no JVD, no carotid bruits, trachea midline, no thyromegaly Cardiac: S1, S2 auscultated, regular rhythm and rate, no mumurs or gallop Pulmonary: Diminished breath sound bibasilar. Normal respiratory effort. Chest clear to auscultation bilaterally, no adventitious breath sounds GI: Abdomen normal to inspection. Soft, non tender, non- distended, no masses, no rebound tenderness or guarding. Bowel sounds active on all four quadrants Genitourinary: Deferred Extremities: No cyanosis, clubbing, or edema. Pulses [2+] bilaterally. Full ROM on all four extremities. No focal weakness appreciated. Neurologic: Alert to person, place, time, and situation. Affect appropriate, intact sensation. Skin: With abrasions on bilateral knees. Pressure ulcers present on sacral area. Access: Port-A-Cath on right chest Results Result Diagram: 04/07/17 0510 04/07/17 0510 Results 24 hrs Laboratory Tests Test 04/07/17 05:10 04/07/17 05:16 White Blood Count 11.4 #H Red Blood Count 2.19 L Hemoglobin 7.2 L Hematocrit 23.5 L Mean Corpuscular Volume 107.3 H Mean Corpuscular Hemoglobin 32.9 Mean Corpuscular Hemoglobin Concent 30.6 L Red Cell Distribution Width 19.6 H Platelet Count 174 Mean Platelet Volume 10.1 Neutrophils % 78.4 H Lymphocytes % 6.0 L Monocytes % 12.2 H Eosinophils % 2.4 Basophils % 0.3 Nucleated Red Blood Cells % 0.0 Neutrophils # 9.0 H Lymphocytes # 0.7 L Monocytes # 1.4 H Eosinophils # 0.3 Basophils # 0.0 Nucleated Red Blood Cells # 0.0 Sodium Level 138 Potassium Level 3.8 Chloride Level 100 Carbon Dioxide Level 21 Anion Gap 21 #H Blood Urea Nitrogen 8 Creatinine 0.55 Glucose Level 57 #L Calcium Level 8.5 Phosphorus Level 3.2 Magnesium Level 1.2 L Medications Medications Current Medications Ondansetron HCl (Zofran Inj) 4 mg Q6H PRN IV NAUSEA AND/OR VOMITING Last administered on 04/07/17t 08:32; Admin Dose 4 MG; Start 04/05/17 at 18:30 Acetaminophen (Tylenol Tab) 650 mg Q6H PRN PO PAIN LEVEL 1-3 OR FEVER; Start at 18:30 Docusate Sodium (Colace) 100 mg Q12H PRN PO CONSTIPATION; Start 04/05/17 at 18: 30 Magnesium Hydroxide (Milk Of Mag) 30 ml DAILY PRN PO CONSTIPATION; Start at 18:30 Sodium Biphosphate/ Sodium Phosphate (Fleet Enema) 133 ml DAILY PRN [place] CONSTIPATION; Start 04/05/17 at 18:30 Hydralazine HCl (Apresoline) 10 mg Q6H PRN IV ELEVATED BLOOD PRESSURE; Start at 18:30 Nitroglycerin (Nitroglycerin (Sl Tab) 0.4 Mg) 1 tab Q5M PRN SL ANGINA; Start at 18:30 Ascorbic Acid (Vitamin C) 500 mg DAILY PO ; Start 04/06/17 at 09:00 Cholecalciferol (Vitamin D) 1,000 unit DAILY PO ; Start 04/06/17 at 09:00 Docusate Sodium (Colace) 100 mg BID PO ; Start 04/05/17 at 21:00 Ferrous Sulfate (Ferrous Sulfate (Ec)) 325 mg DAILY PO ; Start 04/06/17 at 09:00 Loratadine (Claritin) 10 mg DAILY PO ; Start 04/06/17 at 09:00 Metoclopramide HCl (Reglan) 5 mg TID PRN PO NAUSEA AND/OR VOMITING; Start at 18:30 Polyethylene Glycol (Miralax) 17 gm DAILY PO ; Start 04/06/17 at 09:00 Multivitamins/ Minerals 1 tab 1 tab DAILY PO ; Start 04/06/17 at 09:00 Metronidazole (Flagyl 500 Mg (Pmx)) 100 ml @ 100 mls/hr Q8 IVPB Last administered on 04/07/17t 05:35; Admin Dose 100 MLS/HR; Start 04/05/17 at 22:00 Dronabinol (Marinol) 2.5 mg BID PO ; Start 04/05/17 at 21:00 Estradiol (Estrace) 0.5 mg QHS PO ; Start 04/05/17 at 21:00 Estradiol (Estrace) 1 mg DAILY PO ; Start 04/06/17 at 09:00 Imatinib Mesylate (Gleevec) 400 mg DAILY PO ; Start 04/06/17 at 09:00 Lubiprostone (Amitiza) 24 mcg BID PO ; Start 04/05/17 at 21:00 Methylprednisolone (Medrol) 6 mg DAILY PO ; Start 04/06/17 at 09:00 Sildenafil Citrate 20 mg 20 mg TID PO ; Start 04/05/17 at 21:00 Levofloxacin/ Dextrose (Levaquin 750 Mg/ D5W 150 ml (Pmx)) 150 ml @ 100 mls/hr Q24H IVPB Last administered on 04/06/17 17:51; Admin Dose 100 MLS/HR; Start 04/06/17 at 17:00 Miscellaneous Information (Pending [facility] Order For Wound Care) This patient corrigan... PRN PRN XX WOUND CARE; Start 04/06/17 at 04:00 Famotidine (Pepcid Iv) 20 mg BID IV Last administered on 04/07/17 08:32; Admin Dose 20 MG; Start 04/06/17 at 21:00 Hydromorphone HCl (Dilaudid DUSTLESS OPERATOR) 0.3 MG/HR CONTINUOUS RATE ... Q4PCA IV Last administered on 04/06/17 22:40; Admin Dose 6 MG; Start 04/06/17 at 11:30 Bisacodyl (Dulcolax Supp) 10 mg DAILY PRN [place] CONSTIPATION; Start 04/07/17 at 12: 00 Metoclopramide HCl 10 mg 10 mg Q6 IV ; Start 04/07/17 at 12:00; Stop 04/09/17 at 11:59 Magnesium Sulfate 3 gm/Sodium Chloride 106 ml @ 35.333 mls/ hr ONCE ONCE IVPB ; Start 04/07/17 at 13:00; Stop 04/07/17 at 15:59 Dextrose/Sodium Chloride (D5-NS) 1,000 ml @ 100 mls/hr Q10H IV ; Start 04/07/17 at 12:00 BAUTISTA CROOKS NP Apr 07, 2017 12:13
[2017-04-07] MEDS ORDERED: GLUCAGON 1 MG INJ IM PRN (12:30)
[2017-04-07] MEDS ORDERED: DEXTROSE 50% 50 ML SYRINGE IV PRN ×2 (12:30)
[2017-04-07] MEDS ORDERED: GLUCOSE GEL 15 GRAM TUBE BUCCAL PRN (12:30)
[2017-04-07] MEDS ORDERED: GLUCOSE GEL 15 GRAM TUBE PO PRN ×2 (12:30)
[2017-04-07] MEDS ORDERED: MAGNESIUM SULFATE 3 GM in SOD CHLORIDE 0.9% 100 ML IVPB ONE (13:00)
[2017-04-07] MEDS: METOCLOPRAMIDE 10 MG INJ IV SCH ×2 (13:02→17:19)
[2017-04-07] MEDS: DEXTROSE 5%-0.9% NACL 1,000 ML IV SCH ×2 (13:02→22:00)
[2017-04-07] MEDS: HYDROmorphONE 0.2 MG/ML PCA IV SCH (13:07)
[2017-04-07 15:03] VITALS: BP 119/72; RESP 16
--- NOTE | 2017-04-07 16:59 | PN ---
Date/Time of Note Date/Time of Note DATE: 04/07/17 TIME: 16:58 Assessment/Plan Lines/Catheters IV Catheter Type (from Nrs): korina catheter Assessment/Plan Chief Complaint/Hosp Course 1. Intrahepatic masses with peritoneal lesions: CT abd: multiple large hepatic masses, some of which suggest bleeding within the mass and extensive nodularity in the left retroperitoneum which may represent extensive portosystemic collateral vasculature or adenopathy. 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 DNR/DNI. -no surgical interventions required at this time -oncological f/u and tx -pain management appreciated 2. Severe abdominal pain: 2/2 above -pain management per pain service -as above 3. Anemia: likely 2/2 recent chemo + CML vs. acute bleed -monitor -transfuse as needed 4. Leukocytosis: recent chemo + uti; fevers. Improved -supportive -abx 5. Hyponatremia: likely 2/2 dehydration + vomiting + liver disease -optimize lytes -judicious fluid management 6. Elevated liver enzymes: 2/2 #1 -as above 7. UTI: no dysuria -encourage frequent bladder emptying -abx 8. Constipation -bowel regimen Thank you, Problems: Subjective 24 Hr Interval Summary Abdominal pain better controlled. Constipated. No f/c. No n/v. No cp/sob. No cough. No corrigan/dizzy/visual or neuro changes. No dysuria. Exam/Review of Systems Vital Signs Vitals Vital Signs Date Time Temp Pulse Resp B/P Pulse Ox O2 Delivery O2 Flow Rate FiO2 04/07/17 15:03 97.6 99 16 119/72 98 04/06/17 20:00 Nasal Cannula 2.0 Intake and Output 04/06/17 04/06/17 04/07/17 15:00 23:00 07:00 Intake Total 1000 ml 850 ml 850 ml Balance 1000 ml 850 ml 850 ml Exam Free Text/Dictation Constitutional: alert, oriented Psych: anxious Head: atraumatic, normocephalic Eyes: nl lids, nl sclera ENMT: mucosa pink and moist Neck: non-tender, supple Respiratory: clear to auscultation Cardiovascular: regular rate and rhythm, No edema Gastrointestinal: distended, hepatomegaly, surgical scars, tender Musculoskeletal: nl extremities to inspection Extremities: normal pulses, No edema Neurological: nl mental status, nl speech Skin: nl turgor Lymph: enlarged Results Result Diagram: 04/07/17 0510 04/07/17 0510 ELIER MONTILLA MD Apr 07, 2017 16:59
[2017-04-07] MEDS: LEVOFLOXACIN 750MG/D5W (PMX) 150 ML IVPB SCH (17:18)
[2017-04-07 19:52] VITALS: BP 122/71; RESP 17
[2017-04-08] MEDS: ACCU-CHEK XX SCH ×4 (00:30→17:33)
[2017-04-08] MEDS: METOCLOPRAMIDE 10 MG INJ IV SCH ×4 (00:38→17:46)
[2017-04-08 02:26] VITALS: BP 111/64; RESP 17
[2017-04-08] MEDS: metroNIDAZOLE 500 MG/NS (PMX) 100 ML IVPB SCH ×2 (06:09→13:57)
[2017-04-08 07:05] VITALS: BP 141/79; RESP 18
[2017-04-08] MEDS: HYDROmorphONE 0.2 MG/ML PCA IV SCH ×2 (07:29→23:14)
[2017-04-08] MEDS: PANTOPRAZOLE (EC) 40 MG TAB PO SCH ×2 (07:30→17:33)
[2017-04-08 07:32] LABS: ADD SCAN DIFF NO
[2017-04-08 07:44] LABS: BASOPHILS % 0.2 % (0.0-2.0); EOSINOPHILS # 0.3 10^3/ul (0.0-0.5); EOSINOPHILS % 2.8 % (0.0-7.0); HEMATOCRIT 30.3 % (37.0-47.0); HEMOGLOBIN 9.9 g/dl (12.0-16.0); LYMPHOCYTES # 0.6 10^3/ul (0.8-2.9); MEAN CORPUSCULAR HEMOGLOBIN 31.8 pg (29.0-33.0); MEAN CORPUSCULAR HGB CONC 32.7 g/dl (32.0-37.0); MEAN CORPUSCULAR VOLUME 97.4 fl (82.0-101.0); MONOCYTE # 1.1 10^3/ul (0.3-0.9); MONOCYTES % 12.6 % (0.0-11.0); NEUTROPHIL # 6.9 10^3/ul (1.6-7.5); NEUTROPHILS % 76.8 % (39.0-77.0); PLATELET COUNT 147 10^3/UL (140-415); RED BLOOD COUNT 3.11 10^6/ul (4.20-5.40); RED CELL DISTRIBUTION WIDTH 21.1 % (11.5-14.5)
[2017-04-08] MEDS: DEXTROSE 5%-0.9% NACL 1,000 ML IV SCH ×2 (08:00→11:24)
[2017-04-08 08:15] LABS: CALCIUM 8.4 mg/dl (8.4-10.2); CREATININE 0.55 mg/dl (0.44-1.00); MAGNESIUM 1.6 mg/dl (1.7-2.5); POTASSIUM 3.4 mmol/L (3.5-5.1)
[2017-04-08] MEDS: DRONABINOL 2.5 MG CAP PO SCH ×2 (09:00→21:00)
[2017-04-08] MEDS: ASCORBIC ACID 500 MG TAB PO SCH (09:00)
[2017-04-08] MEDS: LORATADINE 10 MG TAB PO SCH (09:00)
[2017-04-08] MEDS: DOCUSATE SODIUM 100 MG CAP PO SCH ×2 (09:00→21:00)
[2017-04-08] MEDS: IMATINIB 400 MG TAB PO SCH (09:00)
[2017-04-08] MEDS: FERROUS SULFATE (EC) 325 MG TAB PO SCH (09:00)
[2017-04-08] MEDS: CHOLECALCIFEROL 1,000 UNIT TAB PO SCH (09:00)
[2017-04-08] MEDS: MULTIVITAMINS/MINERALS TAB PO SCH (09:00)
[2017-04-08] MEDS: METHYLPREDNISOLONE 4 MG TAB PO SCH (09:00)
[2017-04-08] MEDS: POLYETHYLENE GLYCOL 17 GM PACKET PO SCH (09:00)
[2017-04-08] MEDS: SILDENAFIL 20 MG TAB PO SCH ×3 (09:00→21:00)
[2017-04-08] MEDS: LUBIPROSTONE 24 MCG CAP PO SCH ×2 (09:00→21:00)
[2017-04-08] MEDS: ESTRADIOL 1 MG TAB PO SCH ×2 (09:00→21:00)
[2017-04-08] MEDS: FAMOTIDINE 20 MG INJ IV SCH (10:17)
--- NOTE | 2017-04-08 10:55 | PN ---
Date/Time of Note Date/Time of Note DATE: 04/08/17 TIME: 10:46 Assessment/Plan Lines/Catheters IV Catheter Type (from Nrs): Cesia Cath Flores in Place (from Nrs): No Assessment/Plan Chief Complaint/Hosp Course 1. Intrahepatic masses with peritoneal lesions: CT abd: multiple large hepatic masses, some of which suggest bleeding within the mass and extensive nodularity in the left retroperitoneum which may represent extensive portosystemic collateral vasculature or adenopathy. 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 DNR/DNI, -no surgical interventions required at this time -oncological f/u and tx -pain management appreciated 2. Severe abdominal pain: 2/2 above; on dilaudid NOTCH GRINDER -pain management per pain service -as above 3. Anemia: likely 2/2 recent chemo + CML vs. acute bleed; transfused 2 units last night. h/h improved -monitor -transfuse as needed 4. Leukocytosis: recent chemo + uti; fevers. normalized -supportive -abx 5. Hyponatremia: likely 2/2 dehydration + vomiting + liver disease; worse today -optimize lytes -judicious fluid management 6. Elevated liver enzymes: 2/2 #1 -as above 7. UTI: no dysuria -encourage frequent bladder emptying -abx 8. Constipation -bowel regimen 9. Hypokalemia: ?poor oral intake -replete and monitor -optimize lytes -monitor for cardiac arrhythmias Patient seen and examined in collaboration with Dr. Eric Lee. Problems: Subjective 24 Hr Interval Summary Continues to have pain. On Dilaudid NOTCH GRINDER. No vomiting but nauseous. On clear liquids. No c/o corrigan, dizziness, palpitations, cp, diarrhea, sz, sob. Attempting to transfer to [place] Exam/Review of Systems Vital Signs Vitals Vital Signs Date Time Temp Pulse Resp B/P Pulse Ox O2 Delivery O2 Flow Rate FiO2 04/09/17 09:00 98.4 100 19 138/82 97 04/08/17 23:37 2.0 04/08/17 23:37 Nasal Cannula Intake and Output 04/08/17 04/08/17 04/09/17 15:00 23:00 07:00 Intake Total 1100 ml 800 ml 1000 ml Balance 1100 ml 800 ml 1000 ml Exam Free Text/Dictation Constitutional: alert, oriented, guarded Psych: anxious Head: atraumatic, normocephalic Eyes: nl lids, nl sclera ENMT: mucosa pink and dry Neck: non-tender, supple Respiratory: clear to auscultation, portacath Cardiovascular: regular rate and rhythm, No edema Gastrointestinal: distended, hepatomegaly, surgical scars, tender Musculoskeletal: nl extremities to inspection Extremities: normal pulses, No edema Neurological: nl mental status, nl speech Skin: nl turgor Lymph: enlarged Results Result Diagram: 04/09/17 0450 04/09/17 0450 ELLIOTT XIONG NP Apr 08, 2017 10:55
[2017-04-08 15:18] VITALS: BP 127/73; RESP 16
[2017-04-08] MEDS ORDERED: POTASSIUM CHLORIDE (SR) 20 MEQ TAB PO STA (15:50)
[2017-04-08] MEDS ORDERED: MAGNESIUM SULFATE 2 GM/50 ML 50 ML IVPB ONE (16:00)
--- NOTE | 2017-04-08 16:08 | PN ---
Date/Time of Note Date/Time of Note DATE: 04/08/17 TIME: 15:44 Assessment/Plan VTE Prophylaxis VTE Prophylaxis Intervention: SCD's Lines/Catheters IV Catheter Type (from Nrs): Cesia Cath Urinary Cath still in place: No Assessment/Plan Assessment/Plan 1. Abdominal pain due to intrahepatic and peritoneal lesions, pain management 2. 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 Anemia: likely 2/2 recent chemo + CML, s/p 2 units PRBCs 04/07/2017 4. Hyponatremia, follow up with Na 5. UTI: with fungus, diflucan 8. Hypokalemia, hypomagnesemia, supplement 9. Code status: DNR/DNI Subjective 24 Hr Interval Summary Free Text/Dictation abdominal pain is better controlled with GLUE WHEEL OPERATOR. poor appetite and poor oral intake Exam/Review of Systems Vital Signs Vitals Vital Signs Date Time Temp Pulse Resp B/P Pulse Ox O2 Delivery O2 Flow Rate FiO2 04/08/17 15:18 98.5 100 16 127/73 96 04/07/17 20:00 Nasal Cannula 2.0 Intake and Output 04/07/17 04/07/17 04/08/17 15:00 23:00 07:00 Intake Total 750 ml 1456 ml 360 ml Balance 750 ml 1456 ml 360 ml Exam Constitutional: alert, frail Head: atraumatic, normocephalic Eyes: EOMI, PERRL, nl conjunctiva, nl lids Neck: non-tender, supple Respiratory: clear to auscultation, normal air movement, No congested cough, No crackles/rales, No diminished breath sounds, No intercostal retraction, No labored breathing, No other, No respirations, No tactile fremitus, No wheezing Cardiovascular: nl pulses, regular rate and rhythm, No S3, No S4, No bruits, No diastolic murmur, No edema, No gallop, No irregular rhythm, No jugular venous distention (JVD), No murmurs/extra sounds, No other, No rub, No systolic murmur Gastrointestinal: distended, mass (deffuse), tender (diffuse tenderness) Extremities: No clubbing, No cyanosis, No tenderness Neurological: CORRESPONDENCE SCHOOL INSTRUCTOR II-XII 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, lethargic, nl mental status, nl speech Skin: nl turgor Results Result Diagram: 04/08/17 0700 04/08/17 0700 Results 24 hrs Laboratory Tests Test 04/08/17 00:37 04/08/17 06:17 04/08/17 07:00 04/08/17 12:12 Bedside Glucose 84 115 149 White Blood Count 9.0 # Red Blood Count 3.11 #L Hemoglobin 9.9 #L Hematocrit 30.3 #L Mean Corpuscular Volume 97.4 Mean Corpuscular Hemoglobin 31.8 Mean Corpuscular Hemoglobin Concent 32.7 Red Cell Distribution Width 21.1 H Platelet Count 147 Mean Platelet Volume 10.0 Neutrophils % 76.8 Lymphocytes % 7.0 L Monocytes % 12.6 H Eosinophils % 2.8 Basophils % 0.2 Nucleated Red Blood Cells % 0.0 Neutrophils # 6.9 Lymphocytes # 0.6 L Monocytes # 1.1 H Eosinophils # 0.3 Basophils # 0.0 Nucleated Red Blood Cells # 0.0 Sodium Level 133 L Potassium Level 3.4 L Chloride Level 102 Carbon Dioxide Level 26 Anion Gap 8 # Blood Urea Nitrogen 6 L Creatinine 0.55 Glucose Level 104 # Hemoglobin A1c 5.0 Calcium Level 8.4 Magnesium Level 1.6 L Medications Medications Current Medications Ondansetron HCl (Zofran Inj) 4 mg Q6H PRN IV NAUSEA AND/OR VOMITING Last administered on 04/07/17t 20:44; Admin Dose 4 MG; Start 04/05/17 at 18:30 Acetaminophen (Tylenol Tab) 650 mg Q6H PRN PO PAIN LEVEL 1-3 OR FEVER; Start at 18:30 Docusate Sodium (Colace) 100 mg Q12H PRN PO CONSTIPATION; Start 04/05/17 at 18: 30 Magnesium Hydroxide (Milk Of Mag) 30 ml DAILY PRN PO CONSTIPATION; Start at 18:30 Sodium Biphosphate/ Sodium Phosphate (Fleet Enema) 133 ml DAILY PRN SC CONSTIPATION; Start 04/05/17 at 18:30 Hydralazine HCl (Apresoline) 10 mg Q6H PRN IV ELEVATED BLOOD PRESSURE; Start at 18:30 Nitroglycerin (Nitroglycerin (Sl Tab) 0.4 Mg) 1 tab Q5M PRN SL ANGINA; Start at 18:30 Ascorbic Acid (Vitamin C) 500 mg DAILY PO ; Start 04/06/17 at 09:00 Cholecalciferol (Vitamin D) 1,000 unit DAILY PO ; Start 04/06/17 at 09:00 Docusate Sodium (Colace) 100 mg BID PO ; Start 04/05/17 at 21:00 Ferrous Sulfate (Ferrous Sulfate (Ec)) 325 mg DAILY PO ; Start 04/06/17 at 09:00 Loratadine (Claritin) 10 mg DAILY PO ; Start 04/06/17 at 09:00 Metoclopramide HCl (Reglan) 5 mg TID PRN PO NAUSEA AND/OR VOMITING; Start at 18:30 Polyethylene Glycol (Miralax) 17 gm DAILY PO ; Start 04/06/17 at 09:00 Multivitamins/ Minerals 1 tab 1 tab DAILY PO ; Start 04/06/17 at 09:00 Metronidazole (Flagyl 500 Mg (Pmx)) 100 ml @ 100 mls/hr Q8 IVPB Last administered on 04/08/17t 13:57; Admin Dose 100 MLS/HR; Start 04/05/17 at 22:00 Dronabinol (Marinol) 2.5 mg BID PO ; Start 04/05/17 at 21:00 Estradiol (Estrace) 0.5 mg QHS PO ; Start 04/05/17 at 21:00 Estradiol (Estrace) 1 mg DAILY PO ; Start 04/06/17 at 09:00 Imatinib Mesylate (Gleevec) 400 mg DAILY PO ; Start 04/06/17 at 09:00 Lubiprostone (Amitiza) 24 mcg BID PO ; Start 04/05/17 at 21:00 Methylprednisolone (Medrol) 6 mg DAILY PO ; Start 04/06/17 at 09:00 Sildenafil Citrate 20 mg 20 mg TID PO ; Start 04/05/17 at 21:00 Levofloxacin/ Dextrose (Levaquin 750 Mg/ D5W 150 ml (Pmx)) 150 ml @ 100 mls/hr Q24H IVPB Last administered on 04/07/17t 17:18; Admin Dose 100 MLS/HR; Start 04/06/17 at 17:00 [facility] This patient corrigan... PRN PRN XX WOUND CARE; Start 04/06/17 at 04:00 Hydromorphone HCl (Dilaudid GLUE WHEEL OPERATOR) 0.3 MG/HR CONTINUOUS RATE ... Q4PCA IV Last administered on 04/08/17 07:29; Admin Dose 6 MG; Start 04/06/17 at 11:30 Bisacodyl (Dulcolax Supp) 10 mg DAILY PRN SC CONSTIPATION; Start 04/07/17 at 12: 00 Metoclopramide HCl 10 mg 10 mg Q6 IV Last administered on 04/08/17 12:07; Admin Dose 10 MG; Start 04/07/17 at 12:00; Stop 04/09/17 at 11:59 Dextrose/Sodium Chloride (D5-NS) 1,000 ml @ 100 mls/hr Q10H IV Last administered on 04/08/17 11:24; Admin Dose 100 MLS/HR; Start 04/07/17 at 12:00 Miscellaneous Information 1 ea NOTE XX ; Start 04/07/17 at 12:30 Glucose (Glutose) 15 gm Q15M PRN PO DECREASED GLUCOSE; Start 04/07/17 at 12:30 Glucose (Glutose) 22.5 gm Q15M PRN PO DECREASED GLUCOSE; Start 04/07/17 at 12:30 Dextrose (D50w Syringe) 25 ml Q15M PRN IV DECREASED GLUCOSE; Start 04/07/17 at 12:30 Dextrose (D50w Syringe) 50 ml Q15M PRN IV DECREASED GLUCOSE; Start 04/07/17 at 12:30 Glucagon (Glucagen) 1 mg Q15M PRN IM DECREASED GLUCOSE; Start 04/07/17 at 12:30 Glucose (Glutose) 15 gm Q15M PRN BUCCAL DECREASED GLUCOSE; Start 04/07/17 at 12: 30 Miscellaneous Information (* Miscellaneous Pharmacy Order) HYPOGLYCEMIA PROTOCOL w... ONCE XX ; Start 04/07/17 at 12:30; Stop 04/14/17 at 12:29 Diagnostic Test (Pha) (Accu-Chek) BS check Q6H , no insu... Q6 XX ; Start at 00:30 Famotidine (Pepcid) 20 mg BID PO ; Start 04/08/17 at 21:00 GLORIA STEELE MD Apr 08, 2017 15:54
[2017-04-08] MEDS ORDERED: POTASSIUM CHLORIDE 20 MEQ in SOD CHLORIDE 0.9% 100 ML IVPB ONE (18:00)
[2017-04-08] MEDS ORDERED: FLUCONAZOLE 100 MG/NS (PMX) 50 ML IVPB SCH (18:00)
[2017-04-08 21:00] VITALS: BP 114/67; RESP 18
[2017-04-08] MEDS: FAMOTIDINE 20 MG TAB PO SCH (21:00)
[2017-04-08] MEDS: FLUCONAZOLE 100 MG/NS (PMX) 50 ML IVPB SCH (22:25)
[2017-04-08] MEDS: ALBUTEROL/IPRATROPIUM (NEB) 3 ML AMP HHN PRN (23:37)
[2017-04-09] MEDS: METOCLOPRAMIDE 10 MG INJ IV SCH ×2 (00:04→05:34)
[2017-04-09 02:57] VITALS: BP 142/89; RESP 18
[2017-04-09] MEDS: DEXTROSE 5%-0.9% NACL 1,000 ML IV SCH ×3 (04:49→20:58)
[2017-04-09] MEDS: ACCU-CHEK XX SCH ×4 (05:41→17:30)
[2017-04-09 06:31] LABS: ADD SCAN DIFF NO
[2017-04-09 06:51] LABS: BASOPHILS % 0.3 % (0.0-2.0); EOSINOPHILS # 0.3 10^3/ul (0.0-0.5); HEMATOCRIT 30.2 % (37.0-47.0); HEMOGLOBIN 9.8 g/dl (12.0-16.0); LYMPHOCYTES # 0.8 10^3/ul (0.8-2.9); LYMPHOCYTES % 10.2 % (15.0-51.0); MEAN CORPUSCULAR HEMOGLOBIN 31.6 pg (29.0-33.0); MEAN CORPUSCULAR HGB CONC 32.5 g/dl (32.0-37.0); MEAN CORPUSCULAR VOLUME 97.4 fl (82.0-101.0); MEAN PLATELET VOLUME 10.4 fl (7.4-10.4); MONOCYTES % 13.6 % (0.0-11.0); NEUTROPHIL # 5.3 10^3/ul (1.6-7.5); NEUTROPHILS % 71.2 % (39.0-77.0); PLATELET COUNT 139 10^3/UL (140-415); RED CELL DISTRIBUTION WIDTH 21.2 % (11.5-14.5); WHITE BLOOD COUNT 7.5 10^3/ul (4.8-10.8)
[2017-04-09 07:14] LABS: CALCIUM 8.4 mg/dl (8.4-10.2); CREATININE 0.51 mg/dl (0.44-1.00); MAGNESIUM 1.8 mg/dl (1.7-2.5); POTASSIUM 3.2 mmol/L (3.5-5.1)
[2017-04-09] MEDS: PANTOPRAZOLE (EC) 40 MG TAB PO SCH ×2 (07:30→17:30)
[2017-04-09 09:00] VITALS: BP 138/82; RESP 19
[2017-04-09] MEDS: LORATADINE 10 MG TAB PO SCH (09:00)
[2017-04-09] MEDS: CHOLECALCIFEROL 1,000 UNIT TAB PO SCH (09:00)
[2017-04-09] MEDS: LUBIPROSTONE 24 MCG CAP PO SCH ×2 (09:00→20:48)
[2017-04-09] MEDS: FAMOTIDINE 20 MG TAB PO SCH ×2 (09:00→20:49)
[2017-04-09] MEDS: METHYLPREDNISOLONE 4 MG TAB PO SCH (09:00)
[2017-04-09] MEDS: POLYETHYLENE GLYCOL 17 GM PACKET PO SCH (09:00)
[2017-04-09] MEDS: SILDENAFIL 20 MG TAB PO SCH ×3 (09:00→20:49)
[2017-04-09] MEDS: ESTRADIOL 1 MG TAB PO SCH ×2 (09:00→20:48)
[2017-04-09] MEDS: DOCUSATE SODIUM 100 MG CAP PO SCH ×2 (09:00→20:48)
[2017-04-09] MEDS: ASCORBIC ACID 500 MG TAB PO SCH (09:00)
[2017-04-09] MEDS: MULTIVITAMINS/MINERALS TAB PO SCH (09:00)
[2017-04-09] MEDS: IMATINIB 400 MG TAB PO SCH (09:00)
[2017-04-09] MEDS: DRONABINOL 2.5 MG CAP PO SCH ×2 (09:00→20:49)
[2017-04-09] MEDS: FERROUS SULFATE (EC) 325 MG TAB PO SCH (09:00)
--- NOTE | 2017-04-09 09:24 | PN ---
Date/Time of Note Date/Time of Note DATE: 04/09/17 TIME: 09:19 Assessment/Plan Lines/Catheters IV Catheter Type (from Nrs): Cesia Cath Flores in Place (from Nrs): No Assessment/Plan Chief Complaint/Hosp Course 1. Intrahepatic masses with peritoneal lesions: CT abd: multiple large hepatic masses, some of which suggest bleeding within the mass and extensive nodularity in the left retroperitoneum which may represent extensive portosystemic collateral vasculature or adenopathy. 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 DNR/DNI; -no surgical interventions required at this time -oncological f/u and tx -pain management with ANGLE ROLL OPERATOR 2. Severe abdominal pain: 2/2 above; on dilaudid ANGLE ROLL OPERATOR -pain management per pain service -as above 3. Anemia: likely 2/2 recent chemo + CML vs. acute bleed; transfused 2 units 04/07 ; h/h stable -monitor -transfuse as needed 4. Leukocytosis: recent chemo + uti; fevers. normalized -supportive -abx 5. Hyponatremia: likely 2/2 dehydration + vomiting + liver disease; minimally improved -optimize lytes -judicious fluid management 6. Elevated liver enzymes: 2/2 #1 -as above 7. UTI: no dysuria -encourage frequent bladder emptying -abx 8. Constipation -bowel regimen 9. Hypokalemia: ?poor oral intake -replete and monitor -optimize lytes -monitor for cardiac arrhythmias 10. Hypomagnesemia: -optimize lytes -monitor for cardiac arrythmias Patient seen and examined in collaboration with Dr. Eric Lee. Problems: Subjective 24 Hr Interval Summary Continues to have pain. Hesistant to use Dilaudid ANGLE ROLL OPERATOR. No vomiting but nauseous. On clear liquids. No c/o corrigan, dizziness, palpitations, cp, diarrhea, sz , sob. Attempting to transfer to [place] Exam/Review of Systems Vital Signs Vitals Vital Signs Date Time Temp Pulse Resp B/P Pulse Ox O2 Delivery O2 Flow Rate FiO2 04/09/17 09:00 98.4 100 19 138/82 97 04/08/17 23:37 2.0 04/08/17 23:37 Nasal Cannula Intake and Output 04/08/17 04/08/17 04/09/17 15:00 23:00 07:00 Intake Total 1100 ml 800 ml 1000 ml Balance 1100 ml 800 ml 1000 ml Exam Free Text/Dictation Constitutional: alert, oriented, guarded Psych: anxious Head: atraumatic, normocephalic Eyes: nl lids, nl sclera ENMT: mucosa pink and dry Neck: non-tender, supple Respiratory: clear to auscultation Cardiovascular: regular rate and rhythm, No edema Gastrointestinal: distended, hepatomegaly, surgical scars, tender Musculoskeletal: nl extremities to inspection Extremities: normal pulses, No edema Neurological: nl mental status, nl speech Skin: nl turgor Lymph: enlarged Results Result Diagram: 04/09/17 0450 04/09/17 0450 ELLIOTT XIONG NP Apr 09, 2017 09:24
[2017-04-09] MEDS: HYDROmorphONE 0.2 MG/ML PCA IV SCH (12:35)
[2017-04-09] MEDS: ALBUTEROL/IPRATROPIUM (NEB) 3 ML AMP HHN PRN (14:16)
[2017-04-09] MEDS ORDERED: POTASSIUM CHLORIDE 20 MEQ in SOD CHLORIDE 0.9% 100 ML IVPB ONE (16:30)
--- NOTE | 2017-04-09 17:03 | PN ---
Date/Time of Note Date/Time of Note DATE: 04/09/17 TIME: 16:48 Assessment/Plan VTE Prophylaxis VTE Prophylaxis Intervention: SCD's Lines/Catheters IV Catheter Type (from Nrs): Cesia cath Urinary Cath still in place: No Assessment/Plan Assessment/Plan 1. Abdominal pain due to intrahepatic and peritoneal lesions, pain management 2. 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 Anemia: likely 2/2 recent chemo + CML, s/p 2 units PRBCs 04/07/2017 4. Hyponatremia, follow up with Na 5. UTI: with fungus, diflucan 8. Hypokalemia, supplement 9. Code status: DNR/DNI 10. Transfer to [facility] when bed [facility] available, talked to rn case mgr Subjective 24 Hr Interval Summary Free Text/Dictation abdominal pain is controlled. poor intake Exam/Review of Systems Vital Signs Vitals Vital Signs Date Time Temp Pulse Resp B/P Pulse Ox O2 Delivery O2 Flow Rate FiO2 04/09/17 14:23 98 2.0 04/09/17 14:17 93 18 Nasal Cannula 04/09/17 09:00 98.4 138/82 Intake and Output 04/08/17 04/08/17 04/09/17 15:00 23:00 07:00 Intake Total 1100 ml 800 ml 1000 ml Balance 1100 ml 800 ml 1000 ml Exam Constitutional: alert, oriented Head: atraumatic, normocephalic Eyes: EOMI, PERRL, nl conjunctiva, nl lids ENMT: mucosa pink and moist, nl external ears & nose, nl lips & teeth, nl nasal mucosa & septum Respiratory: clear to auscultation, normal air movement, No congested cough, No crackles/rales, No diminished breath sounds, No intercostal retraction, No labored breathing, No other, No respirations, No tactile fremitus, No wheezing Cardiovascular: nl pulses, regular rate and rhythm, No S3, No S4, No bruits, No diastolic murmur, No edema, No gallop, No irregular rhythm, No jugular venous distention (JVD), No murmurs/extra sounds, No other, No rub, No systolic murmur Gastrointestinal: distended, mass Musculoskeletal: nl extremities to inspection Extremities: edema (both lower extremity wounds) 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-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, nl mental status, nl speech, nl strength Results Result Diagram: 04/09/17 0450 04/09/17 0450 Results 24 hrs Laboratory Tests Test 04/08/17 17:35 04/09/17 00:10 04/09/17 04:50 04/09/17 06:32 Bedside Glucose 114 150 White Blood Count 7.5 Red Blood Count 3.10 L Hemoglobin 9.8 L Hematocrit 30.2 L Mean Corpuscular Volume 97.4 Mean Corpuscular Hemoglobin 31.6 Mean Corpuscular Hemoglobin Concent 32.5 Red Cell Distribution Width 21.2 H Platelet Count 139 L Mean Platelet Volume 10.4 Neutrophils % 71.2 Lymphocytes % 10.2 L Monocytes % 13.6 H Eosinophils % 4.0 Basophils % 0.3 Nucleated Red Blood Cells % 0.0 Neutrophils # 5.3 Lymphocytes # 0.8 Monocytes # 1.0 H Eosinophils # 0.3 Basophils # 0.0 Nucleated Red Blood Cells # 0.0 Sodium Level 130 L Potassium Level 3.2 L Chloride Level 100 Carbon Dioxide Level 29 Anion Gap 4 L Blood Urea Nitrogen 4 L Creatinine 0.51 Glucose Level 116 Calcium Level 8.4 Magnesium Level 1.8 Lab Scanned Report BLOOD TRANSFUSION Medications Medications Current Medications Ondansetron HCl (Zofran Inj) 4 mg Q6H PRN IV NAUSEA AND/OR VOMITING Last administered on 04/07/17t 20:44; Admin Dose 4 MG; Start 04/05/17 at 18:30 Acetaminophen (Tylenol Tab) 650 mg Q6H PRN PO PAIN LEVEL 1-3 OR FEVER; Start at 18:30 Docusate Sodium (Colace) 100 mg Q12H PRN PO CONSTIPATION; Start 04/05/17 at 18: 30 Magnesium Hydroxide (Milk Of Mag) 30 ml DAILY PRN PO CONSTIPATION; Start at 18:30 Sodium Biphosphate/ Sodium Phosphate (Fleet Enema) 133 ml DAILY PRN [place] CONSTIPATION; Start 04/05/17 at 18:30 Hydralazine HCl (Apresoline) 10 mg Q6H PRN IV ELEVATED BLOOD PRESSURE; Start at 18:30 Nitroglycerin (Nitroglycerin (Sl Tab) 0.4 Mg) 1 tab Q5M PRN SL ANGINA; Start at 18:30 Ascorbic Acid (Vitamin C) 500 mg DAILY PO ; Start 04/06/17 at 09:00 Cholecalciferol (Vitamin D) 1,000 unit DAILY PO ; Start 04/06/17 at 09:00 Docusate Sodium (Colace) 100 mg BID PO ; Start 04/05/17 at 21:00 Ferrous Sulfate (Ferrous Sulfate (Ec)) 325 mg DAILY PO ; Start 04/06/17 at 09:00 Loratadine (Claritin) 10 mg DAILY PO ; Start 04/06/17 at 09:00 Metoclopramide HCl (Reglan) 5 mg TID PRN PO NAUSEA AND/OR VOMITING; Start at 18:30 Polyethylene Glycol (Miralax) 17 gm DAILY PO ; Start 04/06/17 at 09:00 Multivitamins/ Minerals (Theragran-M) 1 tab DAILY PO ; Start 04/06/17 at 09:00 Dronabinol (Marinol) 2.5 mg BID PO ; Start 04/05/17 at 21:00 Estradiol (Estrace) 0.5 mg QHS PO ; Start 04/05/17 at 21:00 Estradiol (Estrace) 1 mg DAILY PO ; Start 04/06/17 at 09:00 Imatinib Mesylate (Gleevec) 400 mg DAILY PO ; Start 04/06/17 at 09:00 Lubiprostone (Amitiza) 24 mcg BID PO ; Start 04/05/17 at 21:00 Methylprednisolone (Medrol) 6 mg DAILY PO ; Start 04/06/17 at 09:00 Sildenafil Citrate (Revatio) 20 mg TID PO ; Start 04/05/17 at 21:00 Miscellaneous Information (Pending Santyl Order For Wound Care) This patient corrigan... PRN PRN XX WOUND CARE; Start 04/06/17 at 04:00 Hydromorphone HCl (Dilaudid DANCE ENTERTAINER) 0.3 MG/HR CONTINUOUS RATE ... Q4PCA IV Last administered on 04/09/17t 12:35; Admin Dose 6 MG; Start 04/06/17 at 11:30 Bisacodyl 10 mg 10 mg DAILY PRN CA CONSTIPATION; Start 04/07/17 at 12:00 Dextrose/Sodium Chloride (D5-NS) 1,000 ml @ 100 mls/hr Q10H IV Last administered on 04/09/17 04:49; Admin Dose 100 MLS/HR; Start 04/07/17 at 12:00 Miscellaneous Information 1 ea NOTE XX ; Start 04/07/17 at 12:30 Glucose (Glutose) 15 gm Q15M PRN PO DECREASED GLUCOSE; Start 04/07/17 at 12:30 Glucose (Glutose) 22.5 gm Q15M PRN PO DECREASED GLUCOSE; Start 04/07/17 at 12:30 Dextrose (D50w Syringe) 25 ml Q15M PRN IV DECREASED GLUCOSE; Start 04/07/17 at 12:30 Dextrose (D50w Syringe) 50 ml Q15M PRN IV DECREASED GLUCOSE; Start 04/07/17 at 12:30 Glucagon (Glucagen) 1 mg Q15M PRN IM DECREASED GLUCOSE; Start 04/07/17 at 12:30 Glucose (Glutose) 15 gm Q15M PRN BUCCAL DECREASED GLUCOSE; Start 04/07/17 at 12: 30 Miscellaneous Information (* Miscellaneous Pharmacy Order) HYPOGLYCEMIA PROTOCOL w... ONCE XX ; Start 04/07/17 at 12:30; Stop 04/14/17 at 12:29 Diagnostic Test (Pha) (Accu-Chek) BS check Q6H , no insu... Q6 XX ; Start at 00:30 Famotidine 20 mg 20 mg BID PO ; Start 04/08/17 at 21:00 Fluconazole/ Sodium Chloride 50 ml @ 50 mls/hr Q24H IVPB Last administered on 22:25; Admin Dose 50 MLS/HR; Start 04/08/17 at 20:00 Potassium Chloride/Sodium Chloride (KCl/NS) 110 ml @ 55 mls/hr ONCE ONCE IVPB ; Start 04/09/17 at 16:30; Stop 04/09/17 at 18:29 GLORIA STEELE MD Apr 09, 2017 16:59
[2017-04-09 20:47] VITALS: BP 134/89; RESP 19
[2017-04-09] MEDS: FLUCONAZOLE 100 MG/NS (PMX) 50 ML IVPB SCH (20:48)
[2017-04-10 02:04] VITALS: BP 132/72; RESP 18
[2017-04-10] MEDS: HYDROmorphONE 0.2 MG/ML PCA IV SCH ×2 (05:26→21:56)
[2017-04-10] MEDS: ACCU-CHEK XX SCH ×4 (05:57→18:00)
[2017-04-10] MEDS: PANTOPRAZOLE (EC) 40 MG TAB PO SCH ×2 (07:30→17:35)
[2017-04-10 08:00] VITALS: BP 133/84; RESP 18
[2017-04-10] MEDS: DOCUSATE SODIUM 100 MG CAP PO SCH ×2 (08:39→21:00)
[2017-04-10] MEDS: ESTRADIOL 1 MG TAB PO SCH ×2 (08:39→21:00)
[2017-04-10] MEDS: LUBIPROSTONE 24 MCG CAP PO SCH ×2 (08:39→21:00)
[2017-04-10] MEDS: LORATADINE 10 MG TAB PO SCH (08:39)
[2017-04-10] MEDS: SILDENAFIL 20 MG TAB PO SCH ×3 (08:40→21:00)
[2017-04-10] MEDS: FAMOTIDINE 20 MG TAB PO SCH ×2 (08:40→21:00)
[2017-04-10] MEDS: IMATINIB 400 MG TAB PO SCH (08:40)
[2017-04-10] MEDS: FERROUS SULFATE (EC) 325 MG TAB PO SCH (08:40)
[2017-04-10] MEDS: POLYETHYLENE GLYCOL 17 GM PACKET PO SCH (08:40)
[2017-04-10] MEDS: DRONABINOL 2.5 MG CAP PO SCH ×2 (08:40→21:00)
[2017-04-10] MEDS: METHYLPREDNISOLONE 4 MG TAB PO SCH (08:40)
[2017-04-10] MEDS: ASCORBIC ACID 500 MG TAB PO SCH (08:41)
[2017-04-10] MEDS: MULTIVITAMINS/MINERALS TAB PO SCH (08:41)
[2017-04-10] MEDS: CHOLECALCIFEROL 1,000 UNIT TAB PO SCH (08:41)
[2017-04-10] MEDS: DEXTROSE 5%-0.9% NACL 1,000 ML IV SCH ×2 (08:41→21:30)
--- NOTE | 2017-04-10 08:51 | PN ---
Date/Time of Note Date/Time of Note DATE: 04/10/17 TIME: 08:45 Assessment/Plan Lines/Catheters IV Catheter Type (from Nrs): port a cath Flores in Place (from Nrs): No Assessment/Plan Chief Complaint/Hosp Course 1. Intrahepatic masses with peritoneal lesions: CT abd: multiple large hepatic masses, some of which suggest bleeding within the mass and extensive nodularity in the left retroperitoneum which may represent extensive portosystemic collateral vasculature or adenopathy. 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 DNR/DNI; Awating transfer to [facility] -no surgical interventions required at this time -oncological f/u and tx -pain management with HUMAN RESOURCE MANAGER 2. Severe abdominal pain: 2/2 above; on dilaudid HUMAN RESOURCE MANAGER -pain management per pain service -as above 3. Anemia: likely 2/2 recent chemo + CML vs. acute bleed; transfused 2 units 04/07 ; h/h stable; no acute bleed noted -monitor -transfuse as needed 4. Leukocytosis: recent chemo + uti; fevers. normalized -supportive -abx 5. Hyponatremia: likely 2/2 dehydration + vomiting + liver disease; minimally improved -optimize lytes -judicious fluid management 6. Elevated liver enzymes: 2/2 #1 -as above 7. UTI: no dysuria -encourage frequent bladder emptying -abx 8. Constipation -bowel regimen 9. Hypokalemia: multifactorial; poor oral intake -replete and monitor -optimize lytes -monitor for cardiac arrhythmias -optimize nutrition 10. Hypomagnesemia: -optimize lytes -monitor for cardiac arrythmias -optimize nutrition Patient seen and examined in collaboration with Dr. Eric Lee. Problems: Subjective 24 Hr Interval Summary Quiet. c/o pain but hesitant to use on demand HUMAN RESOURCE MANAGER. on continuous HUMAN RESOURCE MANAGER. poor appetite. Refusing to participate in nursing acare and PT. No n/v/d, cp, sob, cough, palpitations. Exam/Review of Systems Vital Signs Vitals Vital Signs Date Time Temp Pulse Resp B/P Pulse Ox O2 Delivery O2 Flow Rate FiO2 04/10/17 06:17 2.0 04/10/17 05:00 17 04/10/17 02:04 98.1 102 132/72 97 04/09/17 20:00 Nasal Cannula Intake and Output 04/09/17 04/09/17 04/10/17 14:59 22:59 06:59 Intake Total 1300 ml 1100 ml Balance 1300 ml 1100 ml Exam Free Text/Dictation Constitutional: alert, oriented, guarded Psych: anxious Head: atraumatic, normocephalic Eyes: nl lids, nl sclera ENMT: mucosa pink and dry Neck: non-tender, supple Respiratory: clear to auscultation Cardiovascular: regular rate and rhythm, No edema Gastrointestinal: distended, hepatomegaly, surgical scars, tender Musculoskeletal: nl extremities to inspection Extremities: normal pulses, No edema Neurological: nl mental status, nl speech Skin: nl turgor Lymph: enlarged Results Result Diagram: 04/09/17 0450 04/09/17 0450 ELLIOTT XIONG NP Apr 10, 2017 08:51
[2017-04-10] MEDS: BALSAM PERU/CASTOR OIL 60 GM TUBE TOP SCH (13:30)
[2017-04-10 14:20] VITALS: BP 116/75; RESP 16
--- NOTE | 2017-04-10 15:49 | PN ---
Date/Time of Note Date/Time of Note DATE: 04/10/17 TIME: 15:46 Assessment/Plan VTE Prophylaxis VTE Prophylaxis Intervention: SCD's Lines/Catheters IV Catheter Type (from Nrs): Cesia cath Urinary Cath still in place: No Assessment/Plan Assessment/Plan 1. Abdominal pain due to intrahepatic and peritoneal lesions, pain management 2. 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 Anemia: likely 2/2 recent chemo + CML, s/p 2 units PRBCs 04/07/2017 4. Hyponatremia, follow up with Na 5. UTI: with fungus, diflucan 8. Hypokalemia, supplement 9. Code status: DNR/DNI 10. Transfer to [facility] when bed is available, discussed with telephonic case manager, no bed yet Subjective 24 Hr Interval Summary Free Text/Dictation pain is controlled, poor intake Exam/Review of Systems Vital Signs Vitals Vital Signs Date Time Temp Pulse Resp B/P Pulse Ox O2 Delivery O2 Flow Rate FiO2 04/10/17 14:20 98.6 102 16 116/75 96 04/10/17 06:17 2.0 04/09/17 20:00 Nasal Cannula Intake and Output 04/09/17 04/09/17 04/10/17 15:00 23:00 07:00 Intake Total 1300 ml 1100 ml Balance 1300 ml 1100 ml Exam Constitutional: alert, oriented Head: atraumatic, normocephalic Eyes: EOMI, PERRL, nl conjunctiva, nl lids, nl sclera ENMT: nl external ears & nose, nl lips & teeth, nl nasal mucosa & septum Neck: supple Respiratory: clear to auscultation, normal air movement, No congested cough, No crackles/rales, No diminished breath sounds, No intercostal retraction, No labored breathing, No other, No respirations, No tactile fremitus, No wheezing Cardiovascular: nl pulses, regular rate and rhythm, No S3, No S4, No bruits, No diastolic murmur, No edema, No gallop, No irregular rhythm, No jugular venous distention (JVD), No murmurs/extra sounds, No other, No rub, No systolic murmur Gastrointestinal: distended, mass (diffuse), tender (diffuse) Musculoskeletal: nl extremities to inspection Extremities: normal pulses Neurological: RETAIL ASSISTANT II-XII intact, lethargic, nl mental status, nl speech Results Result Diagram: 04/09/1744904/09/17449 Medications Medications Current Medications Ondansetron HCl (Zofran Inj) 4 mg Q6H PRN IV NAUSEA AND/OR VOMITING Last administered on 04/07/17t 20:44; Admin Dose 4 MG; Start 04/05/17 at 18:30 Acetaminophen (Tylenol Tab) 650 mg Q6H PRN PO PAIN LEVEL 1-3 OR FEVER; Start at 18:30 Docusate Sodium (Colace) 100 mg Q12H PRN PO CONSTIPATION; Start 04/05/17 at 18: 30 Magnesium Hydroxide (Milk Of Mag) 30 ml DAILY PRN PO CONSTIPATION; Start at 18:30 Sodium Biphosphate/ Sodium Phosphate (Fleet Enema) 133 ml DAILY PRN CO CONSTIPATION; Start 04/05/17 at 18:30 Hydralazine HCl (Apresoline) 10 mg Q6H PRN IV ELEVATED BLOOD PRESSURE; Start at 18:30 Nitroglycerin (Nitroglycerin (Sl Tab) 0.4 Mg) 1 tab Q5M PRN SL ANGINA; Start at 18:30 Ascorbic Acid (Vitamin C) 500 mg DAILY PO ; Start 04/06/17 at 09:00 Cholecalciferol (Vitamin D) 1,000 unit DAILY PO ; Start 04/06/17 at 09:00 Docusate Sodium (Colace) 100 mg BID PO ; Start 04/05/17 at 21:00 Ferrous Sulfate (Ferrous Sulfate (Ec)) 325 mg DAILY PO ; Start 04/06/17 at 09:00 Loratadine (Claritin) 10 mg DAILY PO ; Start 04/06/17 at 09:00 Metoclopramide HCl (Reglan) 5 mg TID PRN PO NAUSEA AND/OR VOMITING; Start at 18:30 Polyethylene Glycol (Miralax) 17 gm DAILY PO ; Start 04/06/17 at 09:00 Multivitamins/ Minerals (Theragran-M) 1 tab DAILY PO ; Start 04/06/17 at 09:00 Dronabinol (Marinol) 2.5 mg BID PO ; Start 04/05/17 at 21:00 Estradiol (Estrace) 0.5 mg QHS PO ; Start 04/05/17 at 21:00 Estradiol (Estrace) 1 mg DAILY PO ; Start 04/06/17 at 09:00 Imatinib Mesylate (Gleevec) 400 mg DAILY PO ; Start 04/06/17 at 09:00 Lubiprostone (Amitiza) 24 mcg BID PO ; Start 04/05/17 at 21:00 Methylprednisolone (Medrol) 6 mg DAILY PO ; Start 04/06/17 at 09:00 Sildenafil Citrate (Revatio) 20 mg TID PO ; Start 04/05/17 at 21:00 Miscellaneous Information ([facility]) This patient corrigan... PRN PRN XX WOUND CARE; Start 04/06/17 at 04:00 Hydromorphone HCl (Dilaudid CLEARING INSPECTOR) 0.3 MG/HR CONTINUOUS RATE ... Q4PCA IV Last administered on 04/10/17 05:26; Admin Dose 6 MG; Start 04/06/17 at 11:30 Bisacodyl 10 mg 10 mg DAILY PRN CO CONSTIPATION; Start 04/07/17 at 12:00 Dextrose/Sodium Chloride (D5-NS) 1,000 ml @ 100 mls/hr Q10H IV Last administered on 04/10/17 08:41; Admin Dose 100 MLS/HR; Start 04/07/17 at 12:00 Miscellaneous Information 1 ea NOTE XX ; Start 04/07/17 at 12:30 Glucose (Glutose) 15 gm Q15M PRN PO DECREASED GLUCOSE; Start 04/07/17 at 12:30 Glucose (Glutose) 22.5 gm Q15M PRN PO DECREASED GLUCOSE; Start 04/07/17 at 12:30 Dextrose (D50w Syringe) 25 ml Q15M PRN IV DECREASED GLUCOSE; Start 04/07/17 at 12:30 Dextrose (D50w Syringe) 50 ml Q15M PRN IV DECREASED GLUCOSE; Start 04/07/17 at 12:30 Glucagon (Glucagen) 1 mg Q15M PRN IM DECREASED GLUCOSE; Start 04/07/17 at 12:30 Glucose (Glutose) 15 gm Q15M PRN BUCCAL DECREASED GLUCOSE; Start 04/07/17 at 12: 30 Miscellaneous Information (* Miscellaneous Pharmacy Order) HYPOGLYCEMIA PROTOCOL w... ONCE XX ; Start 04/07/17 at 12:30; Stop 04/14/17 at 12:29 Diagnostic Test (Pha) (Accu-Chek) BS check Q6H , no insu... Q6 XX ; Start at 00:30 Famotidine 20 mg 20 mg BID PO ; Start 04/08/17 at 21:00 Fluconazole/ Sodium Chloride (Diflucan 100 Mg/ NS (Pmx)) 50 ml @ 50 mls/hr Q24H IVPB Last administered on 04/09/17t 20:48; Admin Dose 50 MLS/HR; Start at 20:00 GLORIA STEELE MD Apr 10, 2017 15:48
[2017-04-10 21:13] VITALS: BP 131/76; RESP 18
[2017-04-10] MEDS: FLUCONAZOLE 100 MG/NS (PMX) 50 ML IVPB SCH (21:52)
[2017-04-11 00:05] VITALS: BP 143/86; RESP 19
[2017-04-11] MEDS: ALBUTEROL/IPRATROPIUM (NEB) 3 ML AMP HHN PRN (02:29)
[2017-04-11 04:00] VITALS: BP 124/72; RESP 18
[2017-04-11 06:00] LABS: ADD SCAN DIFF NO
[2017-04-11] MEDS: ACCU-CHEK XX SCH ×5 (06:00→23:21)
[2017-04-11] MEDS: DEXTROSE 5%-0.9% NACL 1,000 ML IV SCH ×3 (06:00→18:20)
[2017-04-11 06:06] LABS: BASOPHILS % 0.4 % (0.0-2.0); EOSINOPHILS # 0.3 10^3/ul (0.0-0.5); EOSINOPHILS % 3.1 % (0.0-7.0); HEMATOCRIT 30.2 % (37.0-47.0); HEMOGLOBIN 9.5 g/dl (12.0-16.0); LYMPHOCYTES # 0.9 10^3/ul (0.8-2.9); LYMPHOCYTES % 10.4 % (15.0-51.0); MEAN CORPUSCULAR HEMOGLOBIN 31.1 pg (29.0-33.0); MEAN CORPUSCULAR HGB CONC 31.5 g/dl (32.0-37.0); MEAN PLATELET VOLUME 10.6 fl (7.4-10.4); MONOCYTE # 1.2 10^3/ul (0.3-0.9); MONOCYTES % 14.9 % (0.0-11.0); NEUTROPHIL # 5.8 10^3/ul (1.6-7.5); NEUTROPHILS % 70.5 % (39.0-77.0); PLATELET COUNT 113 10^3/UL (140-415); RED BLOOD COUNT 3.05 10^6/ul (4.20-5.40); WHITE BLOOD COUNT 8.3 10^3/ul (4.8-10.8)
[2017-04-11 06:34] LABS: ALBUMIN 2.5 g/dl (3.3-4.9); ALBUMIN/GLOBULIN RATIO 0.96; BILIRUBIN,INDIRECT 0.3 mg/dl (0-1.1); BILIRUBIN,TOTAL 0.3 mg/dl (0.2-1.3); CALCIUM 7.7 mg/dl (8.4-10.2); CREATININE 0.5 mg/dl (0.44-1.00); MAGNESIUM 1.2 mg/dl (1.7-2.5); POTASSIUM 3.3 mmol/L (3.5-5.1); TOTAL PROTEIN 5.1 g/dl (6.1-8.1)
[2017-04-11] MEDS: PANTOPRAZOLE (EC) 40 MG TAB PO SCH ×2 (07:30→17:35)
[2017-04-11] MEDS: DOCUSATE SODIUM 100 MG CAP PO SCH ×2 (08:52→21:00)
[2017-04-11] MEDS: LUBIPROSTONE 24 MCG CAP PO SCH ×2 (08:52→21:00)
[2017-04-11] MEDS: LORATADINE 10 MG TAB PO SCH (08:52)
[2017-04-11] MEDS: POLYETHYLENE GLYCOL 17 GM PACKET PO SCH (08:53)
[2017-04-11] MEDS: FAMOTIDINE 20 MG TAB PO SCH ×2 (08:53→21:00)
[2017-04-11] MEDS: IMATINIB 400 MG TAB PO SCH (08:53)
[2017-04-11] MEDS: METHYLPREDNISOLONE 4 MG TAB PO SCH (08:53)
[2017-04-11] MEDS: FERROUS SULFATE (EC) 325 MG TAB PO SCH (08:53)
[2017-04-11] MEDS: DRONABINOL 2.5 MG CAP PO SCH ×2 (08:53→21:00)
[2017-04-11] MEDS: ESTRADIOL 1 MG TAB PO SCH ×2 (08:53→21:00)
[2017-04-11] MEDS: ASCORBIC ACID 500 MG TAB PO SCH (08:54)
[2017-04-11] MEDS: MULTIVITAMINS/MINERALS TAB PO SCH (08:54)
[2017-04-11] MEDS: BALSAM PERU/CASTOR OIL 60 GM TUBE TOP SCH (08:54)
[2017-04-11] MEDS: SILDENAFIL 20 MG TAB PO SCH ×3 (08:54→21:00)
[2017-04-11] MEDS: CHOLECALCIFEROL 1,000 UNIT TAB PO SCH (08:54)
--- NOTE | 2017-04-11 09:00 | PN ---
Date/Time of Note Date/Time of Note DATE: 04/11/17 TIME: 08:52 Assessment/Plan Lines/Catheters IV Catheter Type (from Nrs): korina cath Flores in Place (from Nrs): No Assessment/Plan Chief Complaint/Hosp Course 1. Intrahepatic masses with peritoneal lesions: CT abd: multiple large hepatic masses, some of which suggest bleeding within the mass and extensive nodularity in the left retroperitoneum which may represent extensive portosystemic collateral vasculature or adenopathy. 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 DNR/DNI; Awating transfer to [facility] -no surgical interventions required at this time -oncological f/u and tx -pain management with TORCH SHEARER 2. Severe abdominal pain: 2/2 above; on dilaudid TORCH SHEARER, hesitant to use TORCH SHEARER -pain management per pain service -as above 3. Anemia: likely 2/2 recent chemo + CML vs. acute bleed; transfused 2 units 04/07 ; h/h stable; no acute bleed noted -monitor -transfuse as needed 4. Leukocytosis: recent chemo + uti; fevers. normalized -supportive -abx 5. Hyponatremia: likely 2/2 dehydration + vomiting + liver disease -optimize lytes -judicious fluid management 6. Elevated liver enzymes: 2/2 #1; improving -as above 7. UTI: no dysuria -encourage frequent bladder emptying -abx 8. Constipation -bowel regimen 9. Hypokalemia: multifactorial; poor oral intake -replete and monitor -optimize lytes -monitor for cardiac arrhythmias -optimize nutrition 10. Hypomagnesemia: -optimize lytes -monitor for cardiac arrhythmias -optimize nutrition 11. Thrombocytopenia: no martha bleeding noted -monitor -bleeding precautions 12. Hypocalcemia: likely 2/2 to poor nutrition -replete & monitor -monitor for cardiac arrhythmias 13. Hypoalbuminemia: likely 2/2 poor nutrition -nutrition optimization -supportive Patient seen and examined in collaboration with Dr. Eric Lee. Problems: Subjective 24 Hr Interval Summary Crying. c/o abdominal pain but hesitant to use on demand TORCH SHEARER. on continuous TORCH SHEARER. poor appetite. Refusing to participate in nursing care and PT. No n/v/d, cp , sob, cough, palpitations. Exam/Review of Systems Vital Signs Vitals Vital Signs Date Time Temp Pulse Resp B/P Pulse Ox O2 Delivery O2 Flow Rate FiO2 7/13/17 05:00 18 04/11/17 04:00 98.8 108 124/72 93 04/11/17 02:29 3.0 04/11/17 02:29 Nasal Cannula Intake and Output 04/10/17 04/10/17 04/11/17 15:00 23:00 07:00 Intake Total 1250 ml 700 ml Balance 1250 ml 700 ml Exam Free Text/Dictation Constitutional: alert, oriented, guarded Psych: anxious Head: atraumatic, normocephalic Eyes: nl lids, nl sclera ENMT: mucosa pink and dry Neck: non-tender, supple Respiratory: diminished to auscultation, portacath Cardiovascular: regular rate and rhythm, No edema Gastrointestinal: distended, hepatomegaly, surgical scars, tender Musculoskeletal: nl extremities to inspection Extremities: normal pulses, No edema Neurological: nl mental status, nl speech Skin: nl turgor, abrasions Lymph: enlarged Results Result Diagram: 04/11/17 0520 04/11/17 0520 ELLIOTT XIONG NP Apr 11, 2017 09:00
[2017-04-11] MEDS: HYDROmorphONE 0.2 MG/ML PCA IV SCH (12:24)
--- NOTE | 2017-04-11 14:31 | QN ---
Documentation Comment Pt remains bedbound and sleeps most of the time. Agree with symptomatic care and pain control. Transfer to her regular physicians is being planned but is not yet arranged. No new suggestions. DHAVAL PERERA MD Apr 11, 2017 14:31
--- NOTE | 2017-04-11 14:34 | PN ---
Date/Time of Note Date/Time of Note DATE: 04/11/17 TIME: 14:28 Assessment/Plan VTE Prophylaxis VTE Prophylaxis Intervention: SCD's Lines/Catheters IV Catheter Type (from Nrsg): PICC Line Central line still needed: Yes Urinary Cath still in place: No Assessment/Plan Assessment/Plan 1. Abdominal pain due to intrahepatic and peritoneal lesions, pain management 2. 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 Anemia: likely 2/2 recent chemo + CML, s/p 2 units PRBCs 04/07/2017 4. Hyponatremia, follow up with Na 5. UTI: with fungus, diflucan 8. Hypokalemia, supplement 9. Code status: DNR/DNI 10. Transfer to [facility] when bed is available, discussed with outsole caser, no bed yet. I called the , no answer, will call again Subjective 24 Hr Interval Summary Free Text/Dictation pain is controlled. alert and oriented. no distress Exam/Review of Systems Vital Signs Vitals Vital Signs Date Time Temp Pulse Resp B/P Pulse Ox O2 Delivery O2 Flow Rate FiO2 04/11/17 12:30 18 04/11/17 09:01 3.0 04/11/17 04:00 98.8 108 124/72 93 04/11/17 02:29 Nasal Cannula Intake and Output 04/10/17 04/10/17 04/11/17 15:00 23:00 07:00 Intake Total 1250 ml 700 ml Balance 1250 ml 700 ml Exam Constitutional: alert, frail, oriented Head: atraumatic, normocephalic Eyes: EOMI, PERRL, nl conjunctiva, nl lids ENMT: mucosa pink and moist, nl external ears & nose, nl lips & teeth, nl nasal mucosa & septum Neck: supple Respiratory: clear to auscultation, normal air movement, No congested cough, No crackles/rales, No diminished breath sounds, No intercostal retraction, No labored breathing, No other, No respirations, No tactile fremitus, No wheezing Cardiovascular: nl pulses, regular rate and rhythm, No S3, No S4, No bruits, No diastolic murmur, No edema, No gallop, No irregular rhythm, No jugular venous distention (JVD), No murmurs/extra sounds, No other, No rub, No systolic murmur Gastrointestinal: distended, mass, tender Musculoskeletal: nl extremities to inspection Extremities: normal pulses Neurological: DRIVER SALES II-XII intact, nl mental status, nl speech, nl strength Results Result Diagram: 04/11/17 0520 04/11/17 0520 Results 24 hrs Laboratory Tests Test 04/11/17 05:20 White Blood Count 8.3 Red Blood Count 3.05 L Hemoglobin 9.5 L Hematocrit 30.2 L Mean Corpuscular Volume 99.0 Mean Corpuscular Hemoglobin 31.1 Mean Corpuscular Hemoglobin Concent 31.5 L Red Cell Distribution Width 20.0 H Platelet Count 113 L Mean Platelet Volume 10.6 H Neutrophils % 70.5 Lymphocytes % 10.4 L Monocytes % 14.9 H Eosinophils % 3.1 Basophils % 0.4 Nucleated Red Blood Cells % 0.0 Neutrophils # 5.8 Lymphocytes # 0.9 Monocytes # 1.2 H Eosinophils # 0.3 Basophils # 0.0 Nucleated Red Blood Cells # 0.0 Sodium Level 130 L Potassium Level 3.3 L Chloride Level 100 Carbon Dioxide Level 32 H Anion Gap 1 L Blood Urea Nitrogen 2 L Creatinine 0.50 Glucose Level 109 Calcium Level 7.7 L Magnesium Level 1.2 L Total Bilirubin 0.3 Direct Bilirubin 0.00 Indirect Bilirubin 0.3 Aspartate Amino Transf (AST/SGOT) 74 H Alanine Aminotransferase (ALT/SGPT) 21 Alkaline Phosphatase 291 H Total Protein 5.1 L Albumin 2.5 L Globulin 2.60 Albumin/Globulin Ratio 0.96 Medications Medications Current Medications Ondansetron HCl (Zofran Inj) 4 mg Q6H PRN IV NAUSEA AND/OR VOMITING Last administered on 04/07/17t 20:44; Admin Dose 4 MG; Start 04/05/17 at 18:30 Acetaminophen (Tylenol Tab) 650 mg Q6H PRN PO PAIN LEVEL 1-3 OR FEVER; Start at 18:30 Docusate Sodium (Colace) 100 mg Q12H PRN PO CONSTIPATION; Start 04/05/17 at 18: 30 Magnesium Hydroxide (Milk Of Mag) 30 ml DAILY PRN PO CONSTIPATION; Start at 18:30 Sodium Biphosphate/ Sodium Phosphate (Fleet Enema) 133 ml DAILY PRN ME CONSTIPATION; Start 04/05/17 at 18:30 Hydralazine HCl (Apresoline) 10 mg Q6H PRN IV ELEVATED BLOOD PRESSURE; Start at 18:30 Nitroglycerin (Nitroglycerin (Sl Tab) 0.4 Mg) 1 tab Q5M PRN SL ANGINA; Start at 18:30 Ascorbic Acid (Vitamin C) 500 mg DAILY PO ; Start 04/06/17 at 09:00 Cholecalciferol (Vitamin D) 1,000 unit DAILY PO ; Start 04/06/17 at 09:00 Docusate Sodium (Colace) 100 mg BID PO ; Start 04/05/17 at 21:00 Ferrous Sulfate (Ferrous Sulfate (Ec)) 325 mg DAILY PO ; Start 04/06/17 at 09:00 Loratadine (Claritin) 10 mg DAILY PO ; Start 04/06/17 at 09:00 Metoclopramide HCl (Reglan) 5 mg TID PRN PO NAUSEA AND/OR VOMITING; Start at 18:30 Polyethylene Glycol (Miralax) 17 gm DAILY PO ; Start 04/06/17 at 09:00 Multivitamins/ Minerals (Theragran-M) 1 tab DAILY PO ; Start 04/06/17 at 09:00 Dronabinol (Marinol) 2.5 mg BID PO ; Start 04/05/17 at 21:00 Estradiol (Estrace) 0.5 mg QHS PO ; Start 04/05/17 at 21:00 Estradiol (Estrace) 1 mg DAILY PO ; Start 04/06/17 at 09:00 Imatinib Mesylate (Gleevec) 400 mg DAILY PO ; Start 04/06/17 at 09:00 Lubiprostone (Amitiza) 24 mcg BID PO ; Start 04/05/17 at 21:00 Methylprednisolone (Medrol) 6 mg DAILY PO ; Start 04/06/17 at 09:00 Sildenafil Citrate (Revatio) 20 mg TID PO ; Start 04/05/17 at 21:00 Miscellaneous Information (Pending [facility] Order For Wound Care) This patient corrigan... PRN PRN XX WOUND CARE; Start 04/06/17 at 04:00 Hydromorphone HCl (Dilaudid TRACTION POWER ENGINEER) 0.3 MG/HR CONTINUOUS RATE ... Q4PCA IV Last administered on 04/11/17t 12:24; Admin Dose 6 MG; Start 04/06/17 at 11:30 Bisacodyl 10 mg 10 mg DAILY PRN ME CONSTIPATION; Start 04/07/17 at 12:00 Dextrose/Sodium Chloride (D5-NS) 1,000 ml @ 100 mls/hr Q10H IV Last administered on 04/11/17 08:51; Admin Dose 100 MLS/HR; Start 04/07/17 at 12:00 Miscellaneous Information 1 ea NOTE XX ; Start 04/07/17 at 12:30 Glucose (Glutose) 15 gm Q15M PRN PO DECREASED GLUCOSE; Start 04/07/17 at 12:30 Glucose (Glutose) 22.5 gm Q15M PRN PO DECREASED GLUCOSE; Start 04/07/17 at 12:30 Dextrose (D50w Syringe) 25 ml Q15M PRN IV DECREASED GLUCOSE; Start 04/07/17 at 12:30 Dextrose (D50w Syringe) 50 ml Q15M PRN IV DECREASED GLUCOSE; Start 04/07/17 at 12:30 Glucagon (Glucagen) 1 mg Q15M PRN IM DECREASED GLUCOSE; Start 04/07/17 at 12:30 Glucose (Glutose) 15 gm Q15M PRN BUCCAL DECREASED GLUCOSE; Start 04/07/17 at 12: 30 Miscellaneous Information (* Miscellaneous Pharmacy Order) HYPOGLYCEMIA PROTOCOL w... ONCE XX ; Start 04/07/17 at 12:30; Stop 04/14/17 at 12:29 Diagnostic Test (Pha) (Accu-Chek) BS check Q6H , no insu... Q6 XX ; Start at 00:30 Famotidine 20 mg 20 mg BID PO ; Start 04/08/17 at 21:00 Fluconazole/ Sodium Chloride (Diflucan 100 Mg/ NS (Pmx)) 50 ml @ 50 mls/hr Q24H IVPB Last administered on 04/10/17 21:52; Admin Dose 50 MLS/HR; Start at 20:00 GLORIA STEELE MD Apr 11, 2017 14:33
--- NOTE | 2017-04-11 16:07 | QN ---
Documentation Comment This is a brief summary of a few phone calls that totalled about 30 min. I spoke to Dr. 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 Marcelo Pulido, oncologist in [place] who was to see her for second opinion and then To Dr. Hernandez, her hospitalist here at [facility]. 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 She did well for awhile but over the last few months has been in and out of hospital, then eventually got placed at [facility] and then an ECF before now being at [facility]. She was last discharged from [facility] about March 01. Dr. High related that she stopped taking all medications and eventually agreed to be hospitalized. Her regular oncologist, Dr. Rosetta Cosme, told her and others that there was no further treatment suggested and that hospice would be appropriate. Apparently her and she found that hard to accept so it was left that if she could improve clinically and walk again, they could reconsider the decision. Her also has serious medical issues as well. She has , however, been continuing to deteriorate. Dr. High also relates that [facility] has no empty beds, so transfer back to her regular physicians is not likely to be an option anytime soon. I told them I would be available to talk to the but I agree with Dr. Cosme that her performance status and nutritional status make treatment of the cancer virtually impossible. We are far more likely to create morbidity than to achieve any slim chance of a palliative response. (Cure is not a possible goal.) I would encourage comfort care. AVELINO PERERA MD Apr 11, 2017 16:06
--- NOTE | 2017-04-11 16:48 | QN ---
Documentation Comment I spoke to the Randy by phone today. ([phone]) I told him all of what is in the prior notes. He is still hoping to find some place that has a miracle. I told him that my impression is that she recognizes the end is nearing and just wants it to be over. I would encourage comfort care. He also wants her back at [facility]. I told him we would be glad to arrange the transfer as soon as that facility says that they will accept her. DHAVAL PERERA MD Apr 11, 2017 16:48
[2017-04-11] MEDS ORDERED: POTASSIUM CHLORIDE 50 ML IVPB ONE (17:30)
[2017-04-11] MEDS ORDERED: MAGNESIUM SULFATE 4 GM/100 ML 100 ML IVPB ONE (17:30)
[2017-04-11] MEDS: FLUCONAZOLE 100 MG/NS (PMX) 50 ML IVPB SCH (22:41)
[2017-04-12] MEDS: DEXTROSE 5%-0.9% NACL 1,000 ML IV SCH ×3 (02:00→14:08)
[2017-04-12] MEDS: HYDROmorphONE 0.2 MG/ML PCA IV SCH ×2 (02:13→15:48)
[2017-04-12] MEDS: PANTOPRAZOLE (EC) 40 MG TAB PO SCH ×2 (04:20→17:35)
[2017-04-12] MEDS: ACCU-CHEK XX SCH ×3 (04:20→17:36)
[2017-04-12 08:16] VITALS: BP 121/80; RESP 20
[2017-04-12] MEDS: DRONABINOL 2.5 MG CAP PO SCH ×2 (09:00→20:16)
[2017-04-12] MEDS: FERROUS SULFATE (EC) 325 MG TAB PO SCH (09:00)
[2017-04-12] MEDS: FAMOTIDINE 20 MG TAB PO SCH ×2 (09:00→20:16)
[2017-04-12] MEDS: LUBIPROSTONE 24 MCG CAP PO SCH ×2 (09:00→20:16)
[2017-04-12] MEDS: SILDENAFIL 20 MG TAB PO SCH ×3 (09:00→20:16)
[2017-04-12] MEDS: CHOLECALCIFEROL 1,000 UNIT TAB PO SCH (09:00)
[2017-04-12] MEDS: DOCUSATE SODIUM 100 MG CAP PO SCH ×2 (09:00→20:16)
[2017-04-12] MEDS: IMATINIB 400 MG TAB PO SCH (09:00)
[2017-04-12] MEDS: LORATADINE 10 MG TAB PO SCH (09:00)
[2017-04-12] MEDS: METHYLPREDNISOLONE 4 MG TAB PO SCH (09:00)
[2017-04-12] MEDS: POLYETHYLENE GLYCOL 17 GM PACKET PO SCH (09:00)
[2017-04-12] MEDS: MULTIVITAMINS/MINERALS TAB PO SCH (09:00)
[2017-04-12] MEDS: BALSAM PERU/CASTOR OIL 60 GM TUBE TOP SCH (09:00)
[2017-04-12] MEDS: ASCORBIC ACID 500 MG TAB PO SCH (09:00)
[2017-04-12] MEDS: ESTRADIOL 1 MG TAB PO SCH ×2 (09:00→20:16)
--- NOTE | 2017-04-12 10:54 | PN ---
Date/Time of Note Date/Time of Note DATE: 04/12/17 TIME: 10:48 Assessment/Plan Lines/Catheters IV Catheter Type (from Nrs): port a cath Flores in Place (from Nrs): No Assessment/Plan Chief Complaint/Hosp Course 1. Intrahepatic masses with peritoneal lesions: CT abd: multiple large hepatic masses, some of which suggest bleeding within the mass and extensive nodularity in the left retroperitoneum which may represent extensive portosystemic collateral vasculature or adenopathy. 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 DNR/DNI; Awaiting transfer to [facility]; -no surgical interventions required at this time -oncological f/u and tx -pain management with BALANCE WHEEL SCREW HOLE DRILLER 2. Severe abdominal pain: 2/2 above; on dilaudid BALANCE WHEEL SCREW HOLE DRILLER, improved -pain management per pain service -as above 3. Anemia: likely 2/2 recent chemo + CML vs. acute bleed; transfused 2 units 04/07 ; labs refused today, no acute bleed noted -monitor -transfuse as needed 4. Leukocytosis: recent chemo + uti; fevers. normalized; refused labs today -supportive -abx 5. Hyponatremia: likely 2/2 dehydration + vomiting + liver disease -optimize lytes -judicious fluid management 6. Elevated liver enzymes: 2/2 #1; improving -as above 7. UTI: no dysuria -encourage frequent bladder emptying -abx 8. Constipation -bowel regimen 9. Hypokalemia: multifactorial; poor oral intake; refused labs today -replete and monitor -optimize lytes -monitor for cardiac arrhythmias -optimize nutrition 10. Hypomagnesemia: -optimize lytes -monitor for cardiac arrhythmias -optimize nutrition 11. Thrombocytopenia: no martha bleeding noted -monitor -bleeding precautions 12. Hypocalcemia: likely 2/2 to poor nutrition -replete & monitor -monitor for cardiac arrhythmias 13. Hypoalbuminemia: likely 2/2 poor nutrition -nutrition optimization -supportive Patient seen and examined in collaboration with Dr. Eric Lee. Problems: Subjective 24 Hr Interval Summary asleep, easily arousable. abdominal pain improved on continuous BALANCE WHEEL SCREW HOLE DRILLER. poor appetite. Refusing to participate in nursing care and other interventions. No n/ v/d, cp, sob, cough, palpitations. Exam/Review of Systems Vital Signs Vitals Vital Signs Date Time Temp Pulse Resp B/P Pulse Ox O2 Delivery O2 Flow Rate FiO2 04/12/17 09:00 16 04/12/17 08:16 98.0 100 121/80 98 04/12/17 00:24 3.0 04/11/17 02:29 Nasal Cannula Intake and Output 04/11/17 04/11/17 04/12/17 15:00 23:00 07:00 Intake Total 50 ml 730 ml Balance 50 ml 730 ml Exam Free Text/Dictation Constitutional: alert, oriented, guarded Psych: anxious Head: atraumatic, normocephalic Eyes: nl lids, nl sclera ENMT: mucosa pink and dry Neck: non-tender, supple Respiratory: diminished to auscultation, portacath Cardiovascular: regular rate and rhythm, No edema Gastrointestinal: distended, hepatomegaly, surgical scars, tender Musculoskeletal: nl extremities to inspection Extremities: normal pulses, No edema Neurological: nl mental status, nl speech Skin: nl turgor, abrasions Lymph: enlarged Results Result Diagram: 04/11/17 0520 04/11/17 0520 ELLIOTT XIONG NP Apr 12, 2017 10:54
--- NOTE | 2017-04-12 11:20 | PN ---
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 Pt also says that she has neuroendocrine tumors of the liver that her regular oncologist is aware of and that she is not on active treatment. Pt also gets monthly IVIG for unclear reasons. Pt was admitted for abdominal pain and possibly fever. She also has dementia and is not a good historian. Problems: Assessment/Plan See notes from yesterday. I spoke to primary MD, oncologist and as well as Dr. Hernandez. I still advocate comfort measures. Chemotherapy is not realistic and she is likely to soon. is having trouble accepting this. He is anxious for her to go to [facility], which is fine, but they have no empty beds presently. Continue current plans. Subjective 24 Hr Interval Summary Free Text/Dictation Pt is quietly sleeping with narcotic administration. She appears comfortable. Exam/Review of Systems Vital Signs Vitals Vital Signs Date Time Temp Pulse Resp B/P Pulse Ox O2 Delivery O2 Flow Rate FiO2 04/12/17 09:00 16 04/12/17 08:16 98.0 100 121/80 98 04/12/17 00:24 3.0 04/11/17 02:29 Nasal Cannula Intake and Output 04/11/17 04/11/17 04/12/17 15:00 23:00 07:00 Intake Total 50 ml 730 ml Balance 50 ml 730 ml Exam Constitutional: non-verbal, other (sleeping after narcotic dose.) Head: normocephalic, other (bitemporal muscle wasting) Respiratory: clear to auscultation Cardiovascular: regular rate and rhythm Gastrointestinal: soft Extremities: other (diffuse loss of muscle mass) Results Result Diagram: 04/11/17 0520 04/11/17 0520 Medications Medications Current Medications Ondansetron HCl (Zofran Inj) 4 mg Q6H PRN IV NAUSEA AND/OR VOMITING Last administered on 04/07/17t 20:44; Admin Dose 4 MG; Start 04/05/17 at 18:30 Acetaminophen (Tylenol Tab) 650 mg Q6H PRN PO PAIN LEVEL 1-3 OR FEVER; Start at 18:30 Docusate Sodium (Colace) 100 mg Q12H PRN PO CONSTIPATION; Start 04/05/17 at 18: 30 Magnesium Hydroxide (Milk Of Mag) 30 ml DAILY PRN PO CONSTIPATION; Start at 18:30 Sodium Biphosphate/ Sodium Phosphate (Fleet Enema) 133 ml DAILY PRN [place] CONSTIPATION; Start 04/05/17 at 18:30 Hydralazine HCl (Apresoline) 10 mg Q6H PRN IV ELEVATED BLOOD PRESSURE; Start at 18:30 Nitroglycerin (Nitroglycerin (Sl Tab) 0.4 Mg) 1 tab Q5M PRN SL ANGINA; Start at 18:30 Ascorbic Acid (Vitamin C) 500 mg DAILY PO ; Start 04/06/17 at 09:00 Cholecalciferol (Vitamin D) 1,000 unit DAILY PO ; Start 04/06/17 at 09:00 Docusate Sodium (Colace) 100 mg BID PO ; Start 04/05/17 at 21:00 Ferrous Sulfate (Ferrous Sulfate (Ec)) 325 mg DAILY PO ; Start 04/06/17 at 09:00 Loratadine (Claritin) 10 mg DAILY PO ; Start 04/06/17 at 09:00 Metoclopramide HCl (Reglan) 5 mg TID PRN PO NAUSEA AND/OR VOMITING; Start at 18:30 Polyethylene Glycol (Miralax) 17 gm DAILY PO ; Start 04/06/17 at 09:00 Multivitamins/ Minerals (Theragran-M) 1 tab DAILY PO ; Start 04/06/17 at 09:00 Dronabinol (Marinol) 2.5 mg BID PO ; Start 04/05/17 at 21:00 Estradiol (Estrace) 0.5 mg QHS PO ; Start 04/05/17 at 21:00 Estradiol (Estrace) 1 mg DAILY PO ; Start 04/06/17 at 09:00 Imatinib Mesylate (Gleevec) 400 mg DAILY PO ; Start 04/06/17 at 09:00 Lubiprostone (Amitiza) 24 mcg BID PO ; Start 04/05/17 at 21:00 Methylprednisolone (Medrol) 6 mg DAILY PO ; Start 04/06/17 at 09:00 Sildenafil Citrate (Revatio) 20 mg TID PO ; Start 04/05/17 at 21:00 Miscellaneous Information (Pending [facility] Order For Wound Care) This patient corrigan... PRN PRN XX WOUND CARE; Start 04/06/17 at 04:00 Hydromorphone HCl (Dilaudid WEB SIZER) 0.3 MG/HR CONTINUOUS RATE ... Q4PCA IV Last administered on 04/12/17 02:13; Admin Dose 6 MG; Start 04/06/17 at 11:30 Bisacodyl 10 mg 10 mg DAILY PRN [place] CONSTIPATION; Start 04/07/17 at 12:00 Dextrose/Sodium Chloride (D5-NS) 1,000 ml @ 100 mls/hr Q10H IV Last administered on 04/11/17 18:20; Admin Dose 100 MLS/HR; Start 04/07/17 at 12:00 Miscellaneous Information 1 ea NOTE XX ; Start 04/07/17 at 12:30 Glucose (Glutose) 15 gm Q15M PRN PO DECREASED GLUCOSE; Start 04/07/17 at 12:30 Glucose (Glutose) 22.5 gm Q15M PRN PO DECREASED GLUCOSE; Start 04/07/17 at 12:30 Dextrose (D50w Syringe) 25 ml Q15M PRN IV DECREASED GLUCOSE; Start 04/07/17 at 12:30 Dextrose (D50w Syringe) 50 ml Q15M PRN IV DECREASED GLUCOSE; Start 04/07/17 at 12:30 Glucagon (Glucagen) 1 mg Q15M PRN IM DECREASED GLUCOSE; Start 04/07/17 at 12:30 Glucose (Glutose) 15 gm Q15M PRN BUCCAL DECREASED GLUCOSE; Start 04/07/17 at 12: 30 Miscellaneous Information (* Miscellaneous Pharmacy Order) HYPOGLYCEMIA PROTOCOL w... ONCE XX ; Start 04/07/17 at 12:30; Stop 04/14/17 at 12:29 Diagnostic Test (Pha) (Accu-Chek) BS check Q6H , no insu... Q6 XX ; Start at 00:30 Famotidine 20 mg 20 mg BID PO ; Start 04/08/17 at 21:00 Fluconazole/ Sodium Chloride (Diflucan 100 Mg/ NS (Pmx)) 50 ml @ 50 mls/hr Q24H IVPB Last administered on 04/11/17t 22:41; Admin Dose 50 MLS/HR; Start at 20:00 DHAVAL PERERA MD Apr 12, 2017 11:20
--- NOTE | 2017-04-12 15:24 | PN ---
Date/Time of Note Date/Time of Note DATE: 04/12/17 TIME: 15:21 Assessment/Plan VTE Prophylaxis VTE Prophylaxis Intervention: SCD's Lines/Catheters IV Catheter Type (from Nrs): port a cath Urinary Cath still in place: No Assessment/Plan Assessment/Plan 1. Abdominal pain due to intrahepatic and peritoneal lesions, pain management 2. 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 Anemia: likely 2/2 recent chemo + CML, s/p 2 units PRBCs 04/07/2017 4. Hyponatremia, follow up with Na 5. UTI: with fungus, diflucan 8. Hypokalemia, supplement 9. Code status: DNR/DNI 9. Talked with her and her sister, agreeable to Hospice care evaluation. The number of the is wrong on the facesheet, it should be [phone] Subjective 24 Hr Interval Summary Free Text/Dictation not eating, refuses oral medications. on TOEING STOCKINGS Exam/Review of Systems Vital Signs Vitals Vital Signs Date Time Temp Pulse Resp B/P Pulse Ox O2 Delivery O2 Flow Rate FiO2 04/12/17 13:00 16 04/12/17 08:16 98.0 100 121/80 98 04/12/17 00:24 3.0 04/11/17 02:29 Nasal Cannula Intake and Output 04/11/17 04/11/17 04/12/17 15:00 23:00 07:00 Intake Total 50 ml 730 ml Balance 50 ml 730 ml Exam Constitutional: alert Head: atraumatic, normocephalic Eyes: EOMI, nl conjunctiva, nl lids ENMT: nl external ears & nose, nl lips & teeth, nl nasal mucosa & septum Respiratory: clear to auscultation, normal air movement, No congested cough, No crackles/rales, No diminished breath sounds, No intercostal retraction, No labored breathing, No other, No respirations, No tactile fremitus, No wheezing Cardiovascular: nl pulses, regular rate and rhythm, No S3, No S4, No bruits, No diastolic murmur, No edema, No gallop, No irregular rhythm, No jugular venous distention (JVD), No murmurs/extra sounds, No other, No rub, No systolic murmur Gastrointestinal: distended, firm, hepatomegaly, mass Musculoskeletal: nl extremities to inspection Extremities: normal pulses, No clubbing, No cyanosis, No edema, No palpable cord Neurological: MED SPA MANAGER II-XII intact, No focal weakness Results Result Diagram: 04/11/17 0504/11/17 05 Medications Medications Current Medications Ondansetron HCl (Zofran Inj) 4 mg Q6H PRN IV NAUSEA AND/OR VOMITING Last administered on 04/07/17t 20:44; Admin Dose 4 MG; Start 04/05/17 at 18:30 Acetaminophen (Tylenol Tab) 650 mg Q6H PRN PO PAIN LEVEL 1-3 OR FEVER; Start at 18:30 Docusate Sodium (Colace) 100 mg Q12H PRN PO CONSTIPATION; Start 04/05/17 at 18: 30 Magnesium Hydroxide (Milk Of Mag) 30 ml DAILY PRN PO CONSTIPATION; Start at 18:30 Sodium Biphosphate/ Sodium Phosphate (Fleet Enema) 133 ml DAILY PRN [place] CONSTIPATION; Start 04/05/17 at 18:30 Hydralazine HCl (Apresoline) 10 mg Q6H PRN IV ELEVATED BLOOD PRESSURE; Start at 18:30 Nitroglycerin (Nitroglycerin (Sl Tab) 0.4 Mg) 1 tab Q5M PRN SL ANGINA; Start at 18:30 Ascorbic Acid (Vitamin C) 500 mg DAILY PO ; Start 04/06/17 at 09:00 Cholecalciferol (Vitamin D) 1,000 unit DAILY PO ; Start 04/06/17 at 09:00 Docusate Sodium (Colace) 100 mg BID PO ; Start 04/05/17 at 21:00 Ferrous Sulfate (Ferrous Sulfate (Ec)) 325 mg DAILY PO ; Start 04/06/17 at 09:00 Loratadine (Claritin) 10 mg DAILY PO ; Start 04/06/17 at 09:00 Metoclopramide HCl (Reglan) 5 mg TID PRN PO NAUSEA AND/OR VOMITING; Start at 18:30 Polyethylene Glycol (Miralax) 17 gm DAILY PO ; Start 04/06/17 at 09:00 Multivitamins/ Minerals (Theragran-M) 1 tab DAILY PO ; Start 04/06/17 at 09:00 Dronabinol (Marinol) 2.5 mg BID PO ; Start 04/05/17 at 21:00 Estradiol (Estrace) 0.5 mg QHS PO ; Start 04/05/17 at 21:00 Estradiol (Estrace) 1 mg DAILY PO ; Start 04/06/17 at 09:00 Imatinib Mesylate (Gleevec) 400 mg DAILY PO ; Start 04/06/17 at 09:00 Lubiprostone (Amitiza) 24 mcg BID PO ; Start 04/05/17 at 21:00 Methylprednisolone (Medrol) 6 mg DAILY PO ; Start 04/06/17 at 09:00 Sildenafil Citrate (Revatio) 20 mg TID PO ; Start 04/05/17 at 21:00 Miscellaneous Information (Pending [facility] Order For Wound Care) This patient corrigan... PRN PRN XX WOUND CARE; Start 04/06/17 at 04:00 Hydromorphone HCl (Dilaudid TOEING STOCKINGS) 0.3 MG/HR CONTINUOUS RATE ... Q4PCA IV Last administered on 04/12/17 02:13; Admin Dose 6 MG; Start 04/06/17 at 11:30 Bisacodyl 10 mg 10 mg DAILY PRN [place] CONSTIPATION; Start 04/07/17 at 12:00 Dextrose/Sodium Chloride (D5-NS) 1,000 ml @ 100 mls/hr Q10H IV Last administered on 04/12/17 14:08; Admin Dose 100 MLS/HR; Start 04/07/17 at 12:00 Miscellaneous Information 1 ea NOTE XX ; Start 04/07/17 at 12:30 Glucose (Glutose) 15 gm Q15M PRN PO DECREASED GLUCOSE; Start 04/07/17 at 12:30 Glucose (Glutose) 22.5 gm Q15M PRN PO DECREASED GLUCOSE; Start 04/07/17 at 12:30 Dextrose (D50w Syringe) 25 ml Q15M PRN IV DECREASED GLUCOSE; Start 04/07/17 at 12:30 Dextrose (D50w Syringe) 50 ml Q15M PRN IV DECREASED GLUCOSE; Start 04/07/17 at 12:30 Glucagon (Glucagen) 1 mg Q15M PRN IM DECREASED GLUCOSE; Start 04/07/17 at 12:30 Glucose (Glutose) 15 gm Q15M PRN BUCCAL DECREASED GLUCOSE; Start 04/07/17 at 12: 30 Miscellaneous Information (* Miscellaneous Pharmacy Order) HYPOGLYCEMIA PROTOCOL w... ONCE XX ; Start 04/07/17 at 12:30; Stop 04/14/17 at 12:29 Diagnostic Test (Pha) (Accu-Chek) BS check Q6H , no insu... Q6 XX ; Start at 00:30 Famotidine 20 mg 20 mg BID PO ; Start 04/08/17 at 21:00 Fluconazole/ Sodium Chloride (Diflucan 100 Mg/ NS (Pmx)) 50 ml @ 50 mls/hr Q24H IVPB Last administered on 04/11/17t 22:41; Admin Dose 50 MLS/HR; Start at 20:00 GLORIA STEELE MD Apr 12, 2017 15:24
[2017-04-12 20:00] VITALS: BP 122/81; RESP 18
[2017-04-12] MEDS: FLUCONAZOLE 100 MG/NS (PMX) 50 ML IVPB SCH (20:00)
[2017-04-13] MEDS: DEXTROSE 5%-0.9% NACL 1,000 ML IV SCH ×3 (00:15→17:41)
[2017-04-13 01:56] VITALS: BP 121/79; RESP 20
[2017-04-13] MEDS: PANTOPRAZOLE (EC) 40 MG TAB PO SCH ×2 (05:41→17:35)
[2017-04-13] MEDS: ACCU-CHEK XX SCH ×4 (05:41→17:41)
[2017-04-13] MEDS: HYDROmorphONE 0.2 MG/ML PCA IV SCH ×2 (05:50→19:36)
[2017-04-13 07:33] LABS: ADD SCAN DIFF NO
[2017-04-13 07:42] LABS: BASOPHILS % 0.4 % (0.0-2.0); EOSINOPHILS # 0.4 10^3/ul (0.0-0.5); EOSINOPHILS % 5.1 % (0.0-7.0); HEMATOCRIT 39.1 % (37.0-47.0); HEMOGLOBIN 12.4 g/dl (12.0-16.0); LYMPHOCYTES # 0.9 10^3/ul (0.8-2.9); LYMPHOCYTES % 11.9 % (15.0-51.0); MEAN CORPUSCULAR HEMOGLOBIN 31.3 pg (29.0-33.0); MEAN CORPUSCULAR HGB CONC 31.7 g/dl (32.0-37.0); MEAN CORPUSCULAR VOLUME 98.7 fl (82.0-101.0); MONOCYTE # 1.3 10^3/ul (0.3-0.9); MONOCYTES % 16.8 % (0.0-11.0); NEUTROPHIL # 5.1 10^3/ul (1.6-7.5); PLATELET COUNT 100 10^3/UL (140-415); RED BLOOD COUNT 3.96 10^6/ul (4.20-5.40); RED CELL DISTRIBUTION WIDTH 19.3 % (11.5-14.5); WHITE BLOOD COUNT 7.9 10^3/ul (4.8-10.8)
[2017-04-13 08:02] LABS: CREATININE 0.51 mg/dl (0.44-1.00); POTASSIUM 3.6 mmol/L (3.5-5.1)
[2017-04-13] MEDS: METHYLPREDNISOLONE 4 MG TAB PO SCH (09:00)
[2017-04-13] MEDS: SILDENAFIL 20 MG TAB PO SCH ×3 (09:00→20:28)
[2017-04-13] MEDS: IMATINIB 400 MG TAB PO SCH (09:00)
[2017-04-13] MEDS: BALSAM PERU/CASTOR OIL 60 GM TUBE TOP SCH (09:00)
[2017-04-13] MEDS: LUBIPROSTONE 24 MCG CAP PO SCH ×2 (09:00→20:26)
[2017-04-13] MEDS: DRONABINOL 2.5 MG CAP PO SCH ×2 (09:00→20:27)
[2017-04-13] MEDS: LORATADINE 10 MG TAB PO SCH (09:00)
[2017-04-13] MEDS: DOCUSATE SODIUM 100 MG CAP PO SCH ×2 (09:00→20:27)
[2017-04-13] MEDS: MULTIVITAMINS/MINERALS TAB PO SCH (09:00)
[2017-04-13] MEDS: FAMOTIDINE 20 MG TAB PO SCH ×2 (09:00→20:28)
[2017-04-13] MEDS: POLYETHYLENE GLYCOL 17 GM PACKET PO SCH (09:00)
[2017-04-13] MEDS: ASCORBIC ACID 500 MG TAB PO SCH (09:00)
[2017-04-13] MEDS: CHOLECALCIFEROL 1,000 UNIT TAB PO SCH (09:00)
[2017-04-13] MEDS: FERROUS SULFATE (EC) 325 MG TAB PO SCH (09:00)
[2017-04-13] MEDS: ESTRADIOL 1 MG TAB PO SCH ×2 (09:00→20:27)
--- NOTE | 2017-04-13 09:01 | CONS ---
Date/Time of Note Date/Time of Note DATE: 04/13/17 TIME: 08:57 Consult Date/Type/Reason Admit Date/Time Apr 05, 2017 at 20:17 Initial Consult Date 04/06/17 Type of Consultation: Heme/Onc Ordering Provider: ISHAN MILLER Subjective Pt has some abdominal pain which is chronic. No appetite. No fevers or chills. No acute events overnight. Objective Vital Signs Date Time Temp Pulse Resp B/P Pulse Ox O2 Delivery O2 Flow Rate FiO2 04/13/17 05:00 18 04/13/17 01:56 98.1 6 121/79 98 04/13/17 01:55 3.0 04/11/17 02:29 Nasal Cannula Intake and Output 04/12/17 04/12/17 04/13/17 15:00 23:00 07:00 Intake Total 500 ml 400 ml 1200 ml Output Total 150 ml Balance 500 ml 400 ml 1050 ml Exam Awake but lethargic Cachectic OP dry JVD not elevated Decreased BS at bases Otherwise clear RRR no m/g/r Abdomen distended, firm No c/c/e Results/Medications Result Diagram: 04/13/17 0655 04/13/17 0719 Results 24 hrs Laboratory Tests Test 04/13/17 06:55 04/13/17 07:19 White Blood Count 7.9 Red Blood Count 3.96 #L Hemoglobin 12.4 # Hematocrit 39.1 # Mean Corpuscular Volume 98.7 Mean Corpuscular Hemoglobin 31.3 Mean Corpuscular Hemoglobin Concent 31.7 L Red Cell Distribution Width 19.3 H Platelet Count 100 L Mean Platelet Volume 11.0 H Neutrophils % 65.0 Lymphocytes % 11.9 L Monocytes % 16.8 H Eosinophils % 5.1 Basophils % 0.4 Nucleated Red Blood Cells % 0.0 Neutrophils # 5.1 Lymphocytes # 0.9 Monocytes # 1.3 H Eosinophils # 0.4 Basophils # 0.0 Nucleated Red Blood Cells # 0.0 Sodium Level 138 Potassium Level 3.6 Chloride Level 98 Carbon Dioxide Level 32 H Anion Gap 12 Blood Urea Nitrogen 3 L Creatinine 0.51 Glucose Level 105 Calcium Level 8.0 L Medications Current Medications Ondansetron HCl (Zofran Inj) 4 mg Q6H PRN IV NAUSEA AND/OR VOMITING Last administered on 7/9/17at 20:44; Admin Dose 4 MG; Start 04/05/17 at 18:30 Acetaminophen (Tylenol Tab) 650 mg Q6H PRN PO PAIN LEVEL 1-3 OR FEVER; Start at 18:30 Docusate Sodium (Colace) 100 mg Q12H PRN PO CONSTIPATION; Start 04/05/17 at 18: 30 Magnesium Hydroxide (Milk Of Mag) 30 ml DAILY PRN PO CONSTIPATION; Start at 18:30 Sodium Biphosphate/ Sodium Phosphate (Fleet Enema) 133 ml DAILY PRN [place] CONSTIPATION; Start 04/05/17 at 18:30 Hydralazine HCl (Apresoline) 10 mg Q6H PRN IV ELEVATED BLOOD PRESSURE; Start at 18:30 Nitroglycerin (Nitroglycerin (Sl Tab) 0.4 Mg) 1 tab Q5M PRN SL ANGINA; Start at 18:30 Ascorbic Acid (Vitamin C) 500 mg DAILY PO ; Start 04/06/17 at 09:00 Cholecalciferol (Vitamin D) 1,000 unit DAILY PO ; Start 04/06/17 at 09:00 Docusate Sodium (Colace) 100 mg BID PO ; Start 04/05/17 at 21:00 Ferrous Sulfate (Ferrous Sulfate (Ec)) 325 mg DAILY PO ; Start 04/06/17 at 09:00 Loratadine (Claritin) 10 mg DAILY PO ; Start 04/06/17 at 09:00 Metoclopramide HCl (Reglan) 5 mg TID PRN PO NAUSEA AND/OR VOMITING; Start at 18:30 Polyethylene Glycol (Miralax) 17 gm DAILY PO ; Start 04/06/17 at 09:00 Multivitamins/ Minerals (Theragran-M) 1 tab DAILY PO ; Start 04/06/17 at 09:00 Dronabinol (Marinol) 2.5 mg BID PO ; Start 04/05/17 at 21:00 Estradiol (Estrace) 0.5 mg QHS PO ; Start 04/05/17 at 21:00 Estradiol (Estrace) 1 mg DAILY PO ; Start 04/06/17 at 09:00 Imatinib Mesylate (Gleevec) 400 mg DAILY PO ; Start 04/06/17 at 09:00 Lubiprostone (Amitiza) 24 mcg BID PO ; Start 04/05/17 at 21:00 Methylprednisolone (Medrol) 6 mg DAILY PO ; Start 04/06/17 at 09:00 Sildenafil Citrate (Revatio) 20 mg TID PO ; Start 04/05/17 at 21:00 Miscellaneous Information ([facility]) This patient corrigan... PRN PRN XX WOUND CARE; Start 04/06/17 at 04:00 Hydromorphone HCl (Dilaudid VALUATION MANAGER) 0.3 MG/HR CONTINUOUS RATE ... Q4PCA IV Last administered on 04/13/17t 05:50; Admin Dose 6 MG; Start 04/06/17 at 11:30 Bisacodyl 10 mg 10 mg DAILY PRN [place] CONSTIPATION; Start 04/07/17 at 12:00 Dextrose/Sodium Chloride (D5-NS) 1,000 ml @ 100 mls/hr Q10H IV Last administered on 04/13/17t 00:15; Admin Dose 100 MLS/HR; Start 04/07/17 at 12:00 Miscellaneous Information 1 ea NOTE XX ; Start 04/07/17 at 12:30 Glucose (Glutose) 15 gm Q15M PRN PO DECREASED GLUCOSE; Start 04/07/17 at 12:30 Glucose (Glutose) 22.5 gm Q15M PRN PO DECREASED GLUCOSE; Start 04/07/17 at 12:30 Dextrose (D50w Syringe) 25 ml Q15M PRN IV DECREASED GLUCOSE; Start 04/07/17 at 12:30 Dextrose (D50w Syringe) 50 ml Q15M PRN IV DECREASED GLUCOSE; Start 04/07/17 at 12:30 Glucagon (Glucagen) 1 mg Q15M PRN IM DECREASED GLUCOSE; Start 04/07/17 at 12:30 Glucose (Glutose) 15 gm Q15M PRN BUCCAL DECREASED GLUCOSE; Start 04/07/17 at 12: 30 Miscellaneous Information (* Miscellaneous Pharmacy Order) HYPOGLYCEMIA PROTOCOL w... ONCE XX ; Start 04/07/17 at 12:30; Stop 04/14/17 at 12:29 Diagnostic Test (Pha) (Accu-Chek) BS check Q6H , no insu... Q6 XX ; Start at 00:30 Famotidine 20 mg 20 mg BID PO ; Start 04/08/17 at 21:00 Fluconazole/ Sodium Chloride (Diflucan 100 Mg/ NS (Pmx)) 50 ml @ 50 mls/hr Q24H IVPB Last administered on 04/11/17t 22:41; Admin Dose 50 MLS/HR; Start at 20:00 Assessment/Plan Additional Assessment/Plan Pt with h/o CML and metastatic neuroendocrine tumors involving the liver. Pt in poor physical condition and is currently DNR. Pt is not a realistic candidate for any therapy and comfort measures recommended. Family looking to transfer patient to [facility] in [place] where her regular oncologist is located. Cont current care with focus on pain control. YOVANI MORALES Apr 13, 2017 09:01
--- NOTE | 2017-04-13 13:40 | PN ---
Date/Time of Note Date/Time of Note DATE: 04/13/17 TIME: 13:38 Assessment/Plan VTE Prophylaxis VTE Prophylaxis Intervention: other Lines/Catheters IV Catheter Type (from [facility]): Port-A-Cath Urinary Cath still in place: No Assessment/Plan Problems: (1) CML in remission Status: Chronic Comment: She has been on Gleevec although she is starting to refuse to take the medications. Given her DNR status and comfort measures I am not able to effectively argue with her (2) Metastatic malignant neuroendocrine tumor to liver Status: Chronic Comment: She has had a terminal point in her care. Will do our best to maintain her comfort and dignity (3) Diabetes mellitus type 2 in nonobese Status: Chronic Comment: Noted and stable (4) Pulmonary hypertension Status: Chronic Comment: She is refusing medications for this Subjective 24 Hr Interval Summary Free Text/Dictation Patient is awake and alert lying in bed. Please note she is declining medications Constitutional: no complaints Respiratory: no complaints Cardiovascular: no complaints Gastrointestinal: pain Exam/Review of Systems Vital Signs Vitals Vital Signs Date Time Temp Pulse Resp B/P Pulse Ox O2 Delivery O2 Flow Rate FiO2 04/13/17 13:00 18 04/13/17 01:56 98.1 6 121/79 98 04/13/17 01:55 3.0 04/11/17 02:29 Nasal Cannula Intake and Output 04/12/17 04/12/17 04/13/17 15:00 23:00 07:00 Intake Total 500 ml 400 ml 1200 ml Output Total 150 ml Balance 500 ml 400 ml 1050 ml Exam Constitutional: alert Neck: non-tender, supple Respiratory: clear to auscultation, normal air movement Results Result Diagram: 04/13/17 0655 04/13/17 0719 Results 24 hrs Laboratory Tests Test 04/13/17 06:55 04/13/17 07:19 White Blood Count 7.9 Red Blood Count 3.96 #L Hemoglobin 12.4 # Hematocrit 39.1 # Mean Corpuscular Volume 98.7 Mean Corpuscular Hemoglobin 31.3 Mean Corpuscular Hemoglobin Concent 31.7 L Red Cell Distribution Width 19.3 H Platelet Count 100 L Mean Platelet Volume 11.0 H Neutrophils % 65.0 Lymphocytes % 11.9 L Monocytes % 16.8 H Eosinophils % 5.1 Basophils % 0.4 Nucleated Red Blood Cells % 0.0 Neutrophils # 5.1 Lymphocytes # 0.9 Monocytes # 1.3 H Eosinophils # 0.4 Basophils # 0.0 Nucleated Red Blood Cells # 0.0 Sodium Level 138 Potassium Level 3.6 Chloride Level 98 Carbon Dioxide Level 32 H Anion Gap 12 Blood Urea Nitrogen 3 L Creatinine 0.51 Glucose Level 105 Calcium Level 8.0 L Medications Medications Current Medications Ondansetron HCl (Zofran Inj) 4 mg Q6H PRN IV NAUSEA AND/OR VOMITING Last administered on 04/07/17t 20:44; Admin Dose 4 MG; Start 04/05/17 at 18:30 Acetaminophen (Tylenol Tab) 650 mg Q6H PRN PO PAIN LEVEL 1-3 OR FEVER; Start at 18:30 Docusate Sodium (Colace) 100 mg Q12H PRN PO CONSTIPATION; Start 04/05/17 at 18: 30 Magnesium Hydroxide (Milk Of Mag) 30 ml DAILY PRN PO CONSTIPATION; Start at 18:30 Sodium Biphosphate/ Sodium Phosphate (Fleet Enema) 133 ml DAILY PRN [place] CONSTIPATION; Start 04/05/17 at 18:30 Hydralazine HCl (Apresoline) 10 mg Q6H PRN IV ELEVATED BLOOD PRESSURE; Start at 18:30 Nitroglycerin (Nitroglycerin (Sl Tab) 0.4 Mg) 1 tab Q5M PRN SL ANGINA; Start at 18:30 Ascorbic Acid (Vitamin C) 500 mg DAILY PO ; Start 04/06/17 at 09:00 Cholecalciferol (Vitamin D) 1,000 unit DAILY PO ; Start 04/06/17 at 09:00 Docusate Sodium (Colace) 100 mg BID PO ; Start 04/05/17 at 21:00 Ferrous Sulfate (Ferrous Sulfate (Ec)) 325 mg DAILY PO ; Start 04/06/17 at 09:00 Loratadine (Claritin) 10 mg DAILY PO ; Start 04/06/17 at 09:00 Metoclopramide HCl (Reglan) 5 mg TID PRN PO NAUSEA AND/OR VOMITING; Start at 18:30 Polyethylene Glycol (Miralax) 17 gm DAILY PO ; Start 04/06/17 at 09:00 Multivitamins/ Minerals (Theragran-M) 1 tab DAILY PO ; Start 04/06/17 at 09:00 Dronabinol (Marinol) 2.5 mg BID PO ; Start 04/05/17 at 21:00 Estradiol (Estrace) 0.5 mg QHS PO ; Start 04/05/17 at 21:00 Estradiol (Estrace) 1 mg DAILY PO ; Start 04/06/17 at 09:00 Imatinib Mesylate (Gleevec) 400 mg DAILY PO ; Start 04/06/17 at 09:00 Lubiprostone (Amitiza) 24 mcg BID PO ; Start 04/05/17 at 21:00 Methylprednisolone (Medrol) 6 mg DAILY PO ; Start 04/06/17 at 09:00 Sildenafil Citrate (Revatio) 20 mg TID PO ; Start 04/05/17 at 21:00 Miscellaneous Information (Pending [facility] Order For Wound Care) This patient corrigan... PRN PRN XX WOUND CARE; Start 04/06/17 at 04:00 Hydromorphone HCl (Dilaudid ANALOG IC DESIGN ARCHITECT) 0.3 MG/HR CONTINUOUS RATE ... Q4PCA IV Last administered on 04/13/17 05:50; Admin Dose 6 MG; Start 04/06/17 at 11:30 Bisacodyl 10 mg 10 mg DAILY PRN [place] CONSTIPATION; Start 04/07/17 at 12:00 Dextrose/Sodium Chloride (D5-NS) 1,000 ml @ 100 mls/hr Q10H IV Last administered on 04/13/17 11:07; Admin Dose 100 MLS/HR; Start 04/07/17 at 12:00 Miscellaneous Information 1 ea NOTE XX ; Start 04/07/17 at 12:30 Glucose (Glutose) 15 gm Q15M PRN PO DECREASED GLUCOSE; Start 04/07/17 at 12:30 Glucose (Glutose) 22.5 gm Q15M PRN PO DECREASED GLUCOSE; Start 04/07/17 at 12:30 Dextrose (D50w Syringe) 25 ml Q15M PRN IV DECREASED GLUCOSE; Start 04/07/17 at 12:30 Dextrose (D50w Syringe) 50 ml Q15M PRN IV DECREASED GLUCOSE; Start 04/07/17 at 12:30 Glucagon (Glucagen) 1 mg Q15M PRN IM DECREASED GLUCOSE; Start 7/9/17 at 12:30 Glucose (Glutose) 15 gm Q15M PRN BUCCAL DECREASED GLUCOSE; Start 04/07/17 at 12: 30 Miscellaneous Information (* Miscellaneous Pharmacy Order) HYPOGLYCEMIA PROTOCOL w... ONCE XX ; Start 04/07/17 at 12:30; Stop 04/14/17 at 12:29 Diagnostic Test (Pha) (Accu-Chek) BS check Q6H , no insu... Q6 XX ; Start at 00:30 Famotidine 20 mg 20 mg BID PO ; Start 04/08/17 at 21:00 Fluconazole/ Sodium Chloride (Diflucan 100 Mg/ NS (Pmx)) 50 ml @ 50 mls/hr Q24H IVPB Last administered on 04/11/17t 22:41; Admin Dose 50 MLS/HR; Start at 20:00 NATE PALACIO MD Apr 13, 2017 13:40
--- NOTE | 2017-04-13 13:56 | PN ---
Date/Time of Note Date/Time of Note DATE: 04/13/17 TIME: 13:51 Assessment/Plan Lines/Catheters IV Catheter Type (from Nrsg): Port-A-Cath Flores in Place (from Nrsg): No Assessment/Plan Chief Complaint/Hosp Course 1. Intrahepatic masses with peritoneal lesions: CT abd: multiple large hepatic masses, some of which suggest bleeding within the mass and extensive nodularity in the left retroperitoneum which may represent extensive portosystemic collateral vasculature or adenopathy. 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 DNR/DNI; Still awaiting transfer to [facility] ; -no surgical interventions required at this time -oncological f/u and tx -pain management with NOZZLEMAN 2. Severe abdominal pain: 2/2 above; on dilaudid NOZZLEMAN, improved pain -pain management per pain service -as above 3. Anemia: likely 2/2 recent chemo + CML vs. acute bleed; transfused 2 units 04/07 ; no acute bleed noted, improved -monitor -transfuse as needed 4. Leukocytosis: recent chemo + uti; fevers. normalized; -supportive -abx 5. Hyponatremia: likely 2/2 dehydration + vomiting + liver disease -optimize lytes -judicious fluid management 6. Elevated liver enzymes: 2/2 #1; improving -as above 7. UTI: no dysuria -encourage frequent bladder emptying -abx 8. Constipation -bowel regimen 9. Hypokalemia: multifactorial; poor oral intake, normalized -replete and monitor -optimize lytes -monitor for cardiac arrhythmias -optimize nutrition 10. Hypomagnesemia: -optimize lytes -monitor for cardiac arrhythmias -optimize nutrition 11. Thrombocytopenia: no martha bleeding noted; -monitor -bleeding precautions 12. Hypocalcemia: likely 2/2 to poor nutrition -replete & monitor -monitor for cardiac arrhythmias 13. Hypoalbuminemia: likely 2/2 poor nutrition -nutrition optimization -supportive Patient seen and examined in collaboration with Dr. Eric Lee. Problems: Subjective 24 Hr Interval Summary Awake. Abdominal pain improved on continuous NOZZLEMAN. poor appetite. Refusing to participate in nursing care and other interventions. No n/v/d, cp, sob, cough, palpitations. Awaiting transfer Exam/Review of Systems Vital Signs Vitals Vital Signs Date Time Temp Pulse Resp B/P Pulse Ox O2 Delivery O2 Flow Rate FiO2 04/13/17 13:00 18 04/13/17 01:56 98.1 6 121/79 98 04/13/17 01:55 3.0 04/11/17 02:29 Nasal Cannula Intake and Output 04/12/17 04/12/17 04/13/17 15:00 23:00 07:00 Intake Total 500 ml 400 ml 1200 ml Output Total 150 ml Balance 500 ml 400 ml 1050 ml Exam Free Text/Dictation Constitutional: alert, oriented, guarded Psych: anxious Head: atraumatic, normocephalic Eyes: nl lids, nl sclera ENMT: mucosa pink and dry Neck: non-tender, supple Respiratory: diminished to auscultation, portacath Cardiovascular: regular rate and rhythm, No edema Gastrointestinal: distended, hepatomegaly, surgical scars, tender Musculoskeletal: nl extremities to inspection Extremities: normal pulses, No edema Neurological: nl mental status, nl speech Skin: nl turgor, abrasions Lymph: enlarged Results Result Diagram: 04/13/17 0655 04/13/17 0719 ELLIOTT XIONG NP Apr 13, 2017 13:55
[2017-04-13] MEDS: FLUCONAZOLE 100 MG/NS (PMX) 50 ML IVPB SCH (19:35)
[2017-04-13 20:11] VITALS: BP 133/85; RESP 17
[2017-04-14] MEDS: DEXTROSE 5%-0.9% NACL 1,000 ML IV SCH ×3 (00:23→20:25)
[2017-04-14 02:19] VITALS: BP 134/90; RESP 22
[2017-04-14] MEDS: ACCU-CHEK XX SCH ×4 (05:25→18:00)
[2017-04-14] MEDS: PANTOPRAZOLE (EC) 40 MG TAB PO SCH ×2 (07:30→17:35)
[2017-04-14 07:58] VITALS: BP 144/89; RESP 17
[2017-04-14] MEDS: LUBIPROSTONE 24 MCG CAP PO SCH ×2 (09:00→20:27)
[2017-04-14] MEDS: SILDENAFIL 20 MG TAB PO SCH ×3 (09:00→20:28)
[2017-04-14] MEDS: ASCORBIC ACID 500 MG TAB PO SCH (09:00)
[2017-04-14] MEDS: CHOLECALCIFEROL 1,000 UNIT TAB PO SCH (09:00)
[2017-04-14] MEDS: IMATINIB 400 MG TAB PO SCH (09:00)
[2017-04-14] MEDS: DRONABINOL 2.5 MG CAP PO SCH ×2 (09:00→20:28)
[2017-04-14] MEDS: MULTIVITAMINS/MINERALS TAB PO SCH (09:00)
[2017-04-14] MEDS: METHYLPREDNISOLONE 4 MG TAB PO SCH (09:00)
[2017-04-14] MEDS: DOCUSATE SODIUM 100 MG CAP PO SCH ×2 (09:00→20:27)
[2017-04-14] MEDS: FERROUS SULFATE (EC) 325 MG TAB PO SCH (09:00)
[2017-04-14] MEDS: POLYETHYLENE GLYCOL 17 GM PACKET PO SCH (09:00)
[2017-04-14] MEDS: LORATADINE 10 MG TAB PO SCH (09:00)
[2017-04-14] MEDS: ESTRADIOL 1 MG TAB PO SCH ×2 (09:00→20:27)
[2017-04-14] MEDS: BALSAM PERU/CASTOR OIL 60 GM TUBE TOP SCH (09:00)
[2017-04-14] MEDS: FAMOTIDINE 20 MG TAB PO SCH ×2 (09:00→20:28)
--- NOTE | 2017-04-14 09:10 | CONS ---
Date/Time of Note Date/Time of Note DATE: 04/14/17 TIME: 09:09 Consult Date/Type/Reason Admit Date/Time Apr 05, 2017 at 20:17 Initial Consult Date 04/06/17 Type of Consultation: Heme/Onc Ordering Provider: ISHAN MILLER Subjective Lying in bed sleeping. Very lethargic. Does not want to be bothered. Objective Vital Signs Date Time Temp Pulse Resp B/P Pulse Ox O2 Delivery O2 Flow Rate FiO2 04/14/17 07:58 99.1 101 17 144/89 93 04/13/17 22:00 3.0 04/13/17 21:33 Nasal Cannula Intake and Output 04/13/17 04/13/17 04/14/17 15:00 23:00 07:00 Intake Total 850 ml 1500 ml Balance 850 ml 1500 ml Exam Exam deferred per pt request Results/Medications Result Diagram: 04/13/17 0655 04/13/17 0719 Results 24 hrs Laboratory Tests Test 04/14/17 00:29 Bedside Glucose 88 Medications Current Medications Ondansetron HCl (Zofran Inj) 4 mg Q6H PRN IV NAUSEA AND/OR VOMITING Last administered on 04/07/17t 20:44; Admin Dose 4 MG; Start 04/05/17 at 18:30 Acetaminophen (Tylenol Tab) 650 mg Q6H PRN PO PAIN LEVEL 1-3 OR FEVER; Start at 18:30 Docusate Sodium (Colace) 100 mg Q12H PRN PO CONSTIPATION; Start 04/05/17 at 18: 30 Magnesium Hydroxide (Milk Of Mag) 30 ml DAILY PRN PO CONSTIPATION; Start at 18:30 Sodium Biphosphate/ Sodium Phosphate (Fleet Enema) 133 ml DAILY PRN [place] CONSTIPATION; Start 04/05/17 at 18:30 Hydralazine HCl (Apresoline) 10 mg Q6H PRN IV ELEVATED BLOOD PRESSURE; Start at 18:30 Nitroglycerin (Nitroglycerin (Sl Tab) 0.4 Mg) 1 tab Q5M PRN SL ANGINA; Start at 18:30 Ascorbic Acid (Vitamin C) 500 mg DAILY PO ; Start 04/06/17 at 09:00 Cholecalciferol (Vitamin D) 1,000 unit DAILY PO ; Start 04/06/17 at 09:00 Docusate Sodium (Colace) 100 mg BID PO ; Start 04/05/17 at 21:00 Ferrous Sulfate (Ferrous Sulfate (Ec)) 325 mg DAILY PO ; Start 04/06/17 at 09:00 Loratadine (Claritin) 10 mg DAILY PO ; Start 04/06/17 at 09:00 Metoclopramide HCl (Reglan) 5 mg TID PRN PO NAUSEA AND/OR VOMITING; Start at 18:30 Polyethylene Glycol (Miralax) 17 gm DAILY PO ; Start 04/06/17 at 09:00 Multivitamins/ Minerals (Theragran-M) 1 tab DAILY PO ; Start 04/06/17 at 09:00 Dronabinol (Marinol) 2.5 mg BID PO ; Start 04/05/17 at 21:00 Estradiol (Estrace) 0.5 mg QHS PO ; Start 04/05/17 at 21:00 Estradiol (Estrace) 1 mg DAILY PO ; Start 04/06/17 at 09:00 Imatinib Mesylate (Gleevec) 400 mg DAILY PO ; Start 04/06/17 at 09:00 Lubiprostone (Amitiza) 24 mcg BID PO ; Start 04/05/17 at 21:00 Methylprednisolone (Medrol) 6 mg DAILY PO ; Start 04/06/17 at 09:00 Sildenafil Citrate (Revatio) 20 mg TID PO ; Start 04/05/17 at 21:00 Miscellaneous Information (Pending [facility] Order For Wound Care) This patient corrigan... PRN PRN XX WOUND CARE; Start 04/06/17 at 04:00 Hydromorphone HCl (Dilaudid GIMP BUTTONHOLE MACHINE OPERATOR) 0.3 MG/HR CONTINUOUS RATE ... Q4PCA IV Last administered on 04/13/17t 19:36; Admin Dose 6 MG; Start 04/06/17 at 11:30 Bisacodyl 10 mg 10 mg DAILY PRN PA CONSTIPATION; Start 04/07/17 at 12:00 Dextrose/Sodium Chloride (D5-NS) 1,000 ml @ 100 mls/hr Q10H IV Last administered on 04/14/17 00:23; Admin Dose 100 MLS/HR; Start 04/07/17 at 12:00 Miscellaneous Information 1 ea NOTE XX ; Start 04/07/17 at 12:30 Glucose (Glutose) 15 gm Q15M PRN PO DECREASED GLUCOSE; Start 04/07/17 at 12:30 Glucose (Glutose) 22.5 gm Q15M PRN PO DECREASED GLUCOSE; Start 04/07/17 at 12:30 Dextrose (D50w Syringe) 25 ml Q15M PRN IV DECREASED GLUCOSE; Start 04/07/17 at 12:30 Dextrose (D50w Syringe) 50 ml Q15M PRN IV DECREASED GLUCOSE; Start 04/07/17 at 12:30 Glucagon (Glucagen) 1 mg Q15M PRN IM DECREASED GLUCOSE; Start 04/07/17 at 12:30 Glucose (Glutose) 15 gm Q15M PRN BUCCAL DECREASED GLUCOSE; Start 04/07/17 at 12: 30 Miscellaneous Information (* Miscellaneous Pharmacy Order) HYPOGLYCEMIA PROTOCOL w... ONCE XX ; Start 04/07/17 at 12:30; Stop 04/15/17 at 12:29 Diagnostic Test (Pha) (Accu-Chek) BS check Q6H , no insu... Q6 XX ; Start at 00:30 Famotidine 20 mg 20 mg BID PO ; Start 04/08/17 at 21:00 Fluconazole/ Sodium Chloride (Diflucan 100 Mg/ NS (Pmx)) 50 ml @ 50 mls/hr Q24H IVPB Last administered on 04/13/17t 19:35; Admin Dose 50 MLS/HR; Start at 20:00 Assessment/Plan Problems: (1) CML in remission (2) Metastatic malignant neuroendocrine tumor to liver (3) Diabetes mellitus type 2 in nonobese (4) Pulmonary hypertension Additional Assessment/Plan Continue with comfort measures. YOVANI MORALES Apr 14, 2017 09:10
--- NOTE | 2017-04-14 09:50 | PN ---
Date/Time of Note Date/Time of Note DATE: 04/14/17 TIME: 09:48 Assessment/Plan VTE Prophylaxis VTE Prophylaxis Intervention: other Lines/Catheters IV Catheter Type (from Nrs): Portacath Urinary Cath still in place: No Assessment/Plan Problems: (1) CML in remission Status: Chronic Comment: Patient is refusing medication. This is at her discretion (2) Metastatic malignant neuroendocrine tumor to liver Status: Chronic Comment: Options have been explained the patient again declines therapeutics she is on comfort measures and DNR (3) Diabetes mellitus type 2 in nonobese Status: Chronic Comment: Adequate control but she is declining fingerstick (4) Pulmonary hypertension Status: Chronic Comment: Noted she is declining her medication Assessment/Plan There were notes that the patient's family wanted her transferred to [place] to [facility] for continued care. However at this time I do not believe that that is absolutely necessary or in her best interest Subjective 24 Hr Interval Summary Free Text/Dictation Patient is difficult to arouse. This is partially situation partially the patient is declining Exam/Review of Systems Vital Signs Vitals Vital Signs Date Time Temp Pulse Resp B/P Pulse Ox O2 Delivery O2 Flow Rate FiO2 04/14/17 07:58 99.1 101 17 144/89 93 04/13/17 22:00 3.0 04/13/17 21:33 Nasal Cannula Intake and Output 04/13/17 04/13/17 04/14/17 15:00 23:00 07:00 Intake Total 850 ml 1500 ml Balance 850 ml 1500 ml Exam Arousable with difficulty no distress Neck: non-tender, supple Respiratory: clear to auscultation, normal air movement Results Result Diagram: 04/13/17 0655 04/13/17 0719 Results 24 hrs Laboratory Tests Test 04/14/17 00:29 Bedside Glucose 88 Medications Medications Current Medications Ondansetron HCl (Zofran Inj) 4 mg Q6H PRN IV NAUSEA AND/OR VOMITING Last administered on 04/07/17t 20:44; Admin Dose 4 MG; Start 04/05/17 at 18:30 Acetaminophen (Tylenol Tab) 650 mg Q6H PRN PO PAIN LEVEL 1-3 OR FEVER; Start at 18:30 Docusate Sodium (Colace) 100 mg Q12H PRN PO CONSTIPATION; Start 04/05/17 at 18: 30 Magnesium Hydroxide (Milk Of Mag) 30 ml DAILY PRN PO CONSTIPATION; Start at 18:30 Sodium Biphosphate/ Sodium Phosphate (Fleet Enema) 133 ml DAILY PRN [place] CONSTIPATION; Start 04/05/17 at 18:30 Hydralazine HCl (Apresoline) 10 mg Q6H PRN IV ELEVATED BLOOD PRESSURE; Start at 18:30 Nitroglycerin (Nitroglycerin (Sl Tab) 0.4 Mg) 1 tab Q5M PRN SL ANGINA; Start at 18:30 Ascorbic Acid (Vitamin C) 500 mg DAILY PO ; Start 04/06/17 at 09:00 Cholecalciferol (Vitamin D) 1,000 unit DAILY PO ; Start 04/06/17 at 09:00 Docusate Sodium (Colace) 100 mg BID PO ; Start 04/05/17 at 21:00 Ferrous Sulfate (Ferrous Sulfate (Ec)) 325 mg DAILY PO ; Start 04/06/17 at 09:00 Loratadine (Claritin) 10 mg DAILY PO ; Start 04/06/17 at 09:00 Metoclopramide HCl (Reglan) 5 mg TID PRN PO NAUSEA AND/OR VOMITING; Start at 18:30 Polyethylene Glycol (Miralax) 17 gm DAILY PO ; Start 04/06/17 at 09:00 Multivitamins/ Minerals (Theragran-M) 1 tab DAILY PO ; Start 04/06/17 at 09:00 Dronabinol (Marinol) 2.5 mg BID PO ; Start 04/05/17 at 21:00 Estradiol (Estrace) 0.5 mg QHS PO ; Start 04/05/17 at 21:00 Estradiol (Estrace) 1 mg DAILY PO ; Start 04/06/17 at 09:00 Imatinib Mesylate (Gleevec) 400 mg DAILY PO ; Start 04/06/17 at 09:00 Lubiprostone (Amitiza) 24 mcg BID PO ; Start 04/05/17 at 21:00 Methylprednisolone (Medrol) 6 mg DAILY PO ; Start 04/06/17 at 09:00 Sildenafil Citrate (Revatio) 20 mg TID PO ; Start 04/05/17 at 21:00 Miscellaneous Information (Pending [facility] Order For Wound Care) This patient corrigan... PRN PRN XX WOUND CARE; Start 04/06/17 at 04:00 Hydromorphone HCl (Dilaudid SQL TECH) 0.3 MG/HR CONTINUOUS RATE ... Q4PCA IV Last administered on 04/13/17 19:36; Admin Dose 6 MG; Start 04/06/17 at 11:30 Bisacodyl 10 mg 10 mg DAILY PRN [place] CONSTIPATION; Start 04/07/17 at 12:00 Dextrose/Sodium Chloride (D5-NS) 1,000 ml @ 100 mls/hr Q10H IV Last administered on 04/14/17 00:23; Admin Dose 100 MLS/HR; Start 04/07/17 at 12:00 Miscellaneous Information 1 ea NOTE XX ; Start 04/07/17 at 12:30 Glucose (Glutose) 15 gm Q15M PRN PO DECREASED GLUCOSE; Start 04/07/17 at 12:30 Glucose (Glutose) 22.5 gm Q15M PRN PO DECREASED GLUCOSE; Start 04/07/17 at 12:30 Dextrose (D50w Syringe) 25 ml Q15M PRN IV DECREASED GLUCOSE; Start 04/07/17 at 12:30 Dextrose (D50w Syringe) 50 ml Q15M PRN IV DECREASED GLUCOSE; Start 04/07/17 at 12:30 Glucagon (Glucagen) 1 mg Q15M PRN IM DECREASED GLUCOSE; Start 04/07/17 at 12:30 Glucose (Glutose) 15 gm Q15M PRN BUCCAL DECREASED GLUCOSE; Start 04/07/17 at 12: 30 Miscellaneous Information (* Miscellaneous Pharmacy Order) HYPOGLYCEMIA PROTOCOL w... ONCE XX ; Start 04/07/17 at 12:30; Stop 04/15/17 at 12:29 Diagnostic Test (Pha) (Accu-Chek) BS check Q6H , no insu... Q6 XX ; Start at 00:30 Famotidine 20 mg 20 mg BID PO ; Start 04/08/17 at 21:00 Fluconazole/ Sodium Chloride (Diflucan 100 Mg/ NS (Pmx)) 50 ml @ 50 mls/hr Q24H IVPB Last administered on 04/13/17 19:35; Admin Dose 50 MLS/HR; Start at 20:00 NATE PALACIO MD Apr 14, 2017 09:50
[2017-04-14] MEDS: HYDROmorphONE 0.2 MG/ML PCA IV SCH (11:40)
--- NOTE | 2017-04-14 12:33 | PN ---
Date/Time of Note Date/Time of Note DATE: 04/14/17 TIME: 12:27 Assessment/Plan Lines/Catheters IV Catheter Type (from Nrs): PORTACATH Flores in Place (from Nrs): No Assessment/Plan Chief Complaint/Hosp Course 1. Intrahepatic masses with peritoneal lesions: CT abd: multiple large hepatic masses, some of which suggest bleeding within the mass and extensive nodularity in the left retroperitoneum which may represent extensive portosystemic collateral vasculature or adenopathy. 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 DNR/DNI; Still awaiting transfer to [facility] ; -no surgical interventions required at this time -oncological f/u and tx -pain management with FORESTRY PATROLMAN 2. Severe abdominal pain: 2/2 above; on dilaudid FORESTRY PATROLMAN, improved pain -pain management per pain service -as above 3. Anemia: likely 2/2 recent chemo + CML vs. acute bleed; transfused 2 units 04/07 ; no acute bleed noted, improved -monitor -transfuse as needed 4. Leukocytosis: recent chemo + uti; no fevers. normalized; -supportive -abx 5. Hyponatremia: likely 2/2 dehydration + vomiting + liver disease -optimize lytes -judicious fluid management 6. Elevated liver enzymes: 2/2 #1; improving -as above 7. UTI: no dysuria -encourage frequent bladder emptying -abx 8. Constipation: refusing bowel regimen -encourage bowel regimen 9. Hypokalemia: multifactorial; poor oral intake, normalized -replete and monitor -optimize lytes -monitor for cardiac arrhythmias -optimize nutrition 10. Hypomagnesemia: -optimize lytes -monitor for cardiac arrhythmias -optimize nutrition 11. Thrombocytopenia: no martha bleeding noted; -monitor -bleeding precautions 12. Hypocalcemia: likely 2/2 to poor nutrition -replete & monitor -monitor for cardiac arrhythmias 13. Hypoalbuminemia: likely 2/2 poor nutrition -nutrition optimization -supportive Patient seen and examined in collaboration with Dr. Eric Lee. Problems: Subjective 24 Hr Interval Summary Sleepy. Nonconversant today. Abdominal pain improved on continuous FORESTRY PATROLMAN. poor appetite. Continuing to refuse to participate in nursing care and other interventions. No n/v/d, cp, sob, cough, palpitations. Constipated. Awaiting transfer Exam/Review of Systems Vital Signs Vitals Vital Signs Date Time Temp Pulse Resp B/P Pulse Ox O2 Delivery O2 Flow Rate FiO2 04/14/17 11:55 16 04/14/17 08:00 Nasal Cannula 3.0 04/14/17 07:58 99.1 101 144/89 93 Intake and Output 04/13/17 04/13/17 04/14/17 15:00 23:00 07:00 Intake Total 850 ml 1500 ml Balance 850 ml 1500 ml Exam Free Text/Dictation Constitutional: alert, oriented, guarded Psych: anxious Head: atraumatic, normocephalic Eyes: nl lids, nl sclera ENMT: mucosa pink and dry Neck: non-tender, supple Respiratory: diminished to auscultation, portacath Cardiovascular: regular rate and rhythm, No edema Gastrointestinal: distended, hepatomegaly, surgical scars, tender, bowel sounds hypoactive Musculoskeletal: nl extremities to inspection Extremities: normal pulses, No edema Neurological: nl mental status, nl speech Skin: nl turgor, abrasions Lymph: enlarged Results Result Diagram: 04/13/17 0655 04/13/17 0719 ELLIOTT XIONG NP Apr 14, 2017 12:32
[2017-04-14 14:09] VITALS: BP 161/90; RESP 17
[2017-04-14] MEDS: FLUCONAZOLE 100 MG/NS (PMX) 50 ML IVPB SCH (20:23)
[2017-04-14 20:56] VITALS: BP 144/79; RESP 20
[2017-04-15] MEDS: ALBUTEROL/IPRATROPIUM (NEB) 3 ML AMP HHN PRN (01:38)
[2017-04-15] MEDS: HYDROmorphONE 0.2 MG/ML PCA IV SCH (02:03)
[2017-04-15 03:35] VITALS: BP 138/79; RESP 20
[2017-04-15] MEDS: ACCU-CHEK XX SCH ×3 (05:12→12:00)
[2017-04-15] MEDS: DEXTROSE 5%-0.9% NACL 1,000 ML IV SCH (05:48)
[2017-04-15] MEDS: PANTOPRAZOLE (EC) 40 MG TAB PO SCH ×2 (07:30→16:02)
[2017-04-15 08:12] VITALS: BP 128/75; RESP 16
[2017-04-15] MEDS: LORATADINE 10 MG TAB PO SCH (09:00)
[2017-04-15] MEDS: CHOLECALCIFEROL 1,000 UNIT TAB PO SCH (09:00)
[2017-04-15] MEDS: FAMOTIDINE 20 MG TAB PO SCH ×2 (09:00→21:00)
[2017-04-15] MEDS: ASCORBIC ACID 500 MG TAB PO SCH (09:00)
[2017-04-15] MEDS: DOCUSATE SODIUM 100 MG CAP PO SCH ×2 (09:00→21:00)
[2017-04-15] MEDS: FERROUS SULFATE (EC) 325 MG TAB PO SCH (09:00)
[2017-04-15] MEDS: MULTIVITAMINS/MINERALS TAB PO SCH (09:00)
[2017-04-15] MEDS: DRONABINOL 2.5 MG CAP PO SCH ×2 (09:00→21:00)
[2017-04-15] MEDS: SILDENAFIL 20 MG TAB PO SCH ×3 (09:00→21:00)
[2017-04-15] MEDS: POLYETHYLENE GLYCOL 17 GM PACKET PO SCH (09:00)
[2017-04-15] MEDS: LUBIPROSTONE 24 MCG CAP PO SCH ×2 (09:00→21:00)
[2017-04-15] MEDS: BALSAM PERU/CASTOR OIL 60 GM TUBE TOP SCH (09:00)
[2017-04-15] MEDS: IMATINIB 400 MG TAB PO SCH (09:00)
[2017-04-15] MEDS: ESTRADIOL 1 MG TAB PO SCH ×2 (09:00→21:00)
[2017-04-15] MEDS: METHYLPREDNISOLONE 4 MG TAB PO SCH (09:00)
--- NOTE | 2017-04-15 10:32 | PN ---
Date/Time of Note Date/Time of Note DATE: 04/15/17 TIME: 10:24 Assessment/Plan Lines/Catheters IV Catheter Type (from Nrs): Portacath Flores in Place (from Nrs): No Assessment/Plan Chief Complaint/Hosp Course 1. Intrahepatic masses with peritoneal lesions: CT abd: multiple large hepatic masses, some of which suggest bleeding within the mass and extensive nodularity in the left retroperitoneum which may represent extensive portosystemic collateral vasculature or adenopathy. 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 DNR/DNI; Hospice eval; -no surgical interventions required at this time -oncological f/u and tx -pain management with RATE MANAGER 2. Severe abdominal pain: 2/2 above; on dilaudid RATE MANAGER, improved pain -pain management per pain service -as above 3. Anemia: likely 2/2 recent chemo + CML vs. acute bleed; transfused 2 units 04/07 ; no acute bleed noted -monitor -transfuse as needed 4. Leukocytosis: recent chemo + uti; no fevers. normalized; -supportive -abx 5. Hyponatremia: likely 2/2 dehydration + vomiting + liver disease -optimize lytes -judicious fluid management 6. Elevated liver enzymes: 2/2 #1; improving -as above 7. UTI: no dysuria -encourage frequent bladder emptying -abx 8. Constipation: refusing bowel regimen -encourage bowel regimen 9. Hypokalemia: multifactorial; poor oral intake, normalized -replete and monitor -optimize lytes -monitor for cardiac arrhythmias -optimize nutrition 10. Hypomagnesemia: -optimize lytes -monitor for cardiac arrhythmias -optimize nutrition 11. Thrombocytopenia: no martha bleeding noted; -monitor -bleeding precautions 12. Hypocalcemia: likely 2/2 to poor nutrition -replete & monitor -monitor for cardiac arrhythmias 13. Hypoalbuminemia: likely 2/2 poor nutrition -nutrition optimization -supportive Patient seen and examined in collaboration with Dr. Eric Lee. Problems: Subjective 24 Hr Interval Summary More awake today. Abdominal pain improved. continues on RATE MANAGER. Min temp. No corrigan, dizziness, cp, palpitations, sob, cough, n/v/d, chills. Hospice eval. Exam/Review of Systems Vital Signs Vitals Vital Signs Date Time Temp Pulse Resp B/P Pulse Ox O2 Delivery O2 Flow Rate FiO2 04/15/17 09:00 18 717/17 08:12 99.0 91 128/75 100 04/15/17 01:38 Nasal Cannula 3.0 Intake and Output 04/14/17 04/14/17 04/15/17 15:00 23:00 07:00 Intake Total 450 ml 950 ml 900 ml Balance 450 ml 950 ml 900 ml Exam Free Text/Dictation Constitutional: alert, oriented, guarded Psych: anxious Head: atraumatic, normocephalic Eyes: nl lids, nl sclera ENMT: mucosa pink and dry Neck: non-tender, supple Respiratory: diminished to auscultation, portacath Cardiovascular: regular rate and rhythm, No edema Gastrointestinal: distended, hepatomegaly, surgical scars, tender, bowel sounds hypoactive Musculoskeletal: nl extremities to inspection Extremities: normal pulses, No edema Neurological: nl mental status, nl speech Skin: nl turgor, abrasions Lymph: enlarged Results Result Diagram: 04/13/17 0655 04/13/17 0719 ELLIOTT XIONG NP Apr 15, 2017 10:32
[2017-04-15] MEDS ORDERED: ACETAMINOPHEN 650 MG SUPP PR PRN (15:30)
[2017-04-15] MEDS ORDERED: HYOSCYAMINE 0.125 MG SUBL TAB SL PRN (15:30)
[2017-04-15] MEDS ORDERED: ONDANSETRON 4 MG INJ IV PRN (15:30)
[2017-04-15] MEDS ORDERED: DIMETHICONE STICK TOP PRN (15:30)
[2017-04-15] MEDS: LORAZEPAM 2 MG INJ IV SCH ×3 (16:02→23:33)
[2017-04-15] MEDS: SOD CHLORIDE 0.9% 1,000 ML IV SCH (16:02)
[2017-04-15] MEDS: HYDROmorphONE 50 MG in DEXTROSE 5% 50 ML IV SCH (16:37)
--- NOTE | 2017-04-15 18:00 | DS ---
Date/Time of Note Date/Time of Note DATE: 04/15/17 TIME: 17:58 Discharge Summary Admission/Discharge Info Admit Date/Time Apr 05, 2017 at 20:17 Discharge Date/Time Discharge Diagnosis CML Intrahepatic mass Retroperitoneal mass Severe abdominal pain Anemia leukocytosis Hyponatremia Altered mental status Elevated liver enzymes UTI Constipation Hypokalemia Thrombocytopenia Hypomagnesemia Hypoalbuminemia Hx of Present Illness 67-year-old female past medical history of possible dementia, CML with recent chemo, possible prior bowel obstructions, who presents with abdominal pain and fever. Most of the information is obtained from the ER documentation as the patient is a limited historian possibly secondary to early dementia versus pain. The patient describes several days of abdominal pain, decreased bowel movement. She does have abdominal surgical history but cannot recall what the surgery was. + vomiting, and nausea. Remainder of HPI is somewhat limited. Full review of systems could not be obtained at this time. When she came into the ER she had imaging studies performed of the abdomen that shows: Multiple large hepatic masses, some of which suggest bleeding within the mass. Extensive nodularity in the left retroperitoneum which may represent extensive portosystemic collateral vasculature or adenopathy. Patient is DNR/DNI. In the ER she was evaluated by the surgery team. Hospital Course Patient is a 67-year-old female with past medical history of CML With metastatic lesions in the liver as well as some bleeding and nodularity in the retroperitoneum who presents to [facility] for abdominal pain. Patient had multiple issues during this admission however most of these issues are secondary to patient's metastatic cancer, hospice was consulted and patient was approved for inpatient hospice. Inpatient hospice physician will not take over. Patient and patient's agree for hospice. Home Meds Reported Medications Ascorbic Acid* (Vitamin C*) 500 Mg Capsule.sa, 500 MG PO DAILY, CAP 04/05/17 Sildenafil Citrate* (Sildenafil Citrate*) 20 Mg Tablet, 20 MG PO TID, TAB 04/05/17 Protein Supplement (Promod) 946 Ml Liquid, 30 ML PO BID 04/05/17 Pregabalin* (Lyrica*) 25 Mg Capsule, 50 MG PO TID, CAP 04/05/17 Polyethylene Glycol* (Polyethylene Glycol*) 17 Gm Powd.pack, 17 GM PO DAILY, # 30 PACKET 04/05/17 Oxycodone HCl/Acetaminophen (Percocet 5-325 mg Tablet) 1 Each Tablet, 1 EACH PO Q4H, TAB 04/05/17 Pantoprazole* (Pantoprazole*) 40 Mg Tablet.dr, 40 MG PO AC BREAKFAST DINNER, TAB 04/05/17 Oxycodone Hcl* (IR) (Oxycodone Hcl*) 15 Mg Tablet, 30 MG PO Q12H Y for PAIN, TAB 04/05/17 Multivitamin with Minerals (Multivitamins with Minerals) 1 Each Tablet, 1 EACH PO DAILY, TAB 04/05/17 Modafinil* (Modafinil*) 100 Mg Tablet, 200 MG PO BID, TAB 04/05/17 Metoclopramide Hcl* (Metoclopramide Hcl*) 5 Mg Tablet, 5 MG PO TID Y for NAUSEA AND/OR VOMITING, TAB 04/05/17 Methylprednisolone* (Medrol*) 4 Mg Tab, 6 MG PO DAILY, TAB 04/05/17 Lubiprostone* (Amitiza*) 24 Mcg Capsule, 24 MCG PO BID, #60 CAP 04/05/17 Loratadine* (Loratadine*) 10 Mg Tablet, 10 MG PO DAILY, #30 TAB 04/05/17 Imatinib Mesylate* (Gleevec*) 400 Mg Tablet, 400 MG PO DAILY, TAB 04/05/17 Ferrous Sulfate* (Ferrous Sulfate*) 325 Mg Tabec, 325 MG PO DAILY, TAB 04/05/17 Estradiol* (Estrace*) 1 Mg Tablet, 1 MG PO DAILY, TAB 04/05/17 Estradiol* (Estrace*) 1 Mg Tablet, 0.5 MG PO QHS, TAB 04/05/17 Dronabinol* (Dronabinol*) 2.5 Mg Capsule, 2.5 MG PO BID, CAP 04/05/17 Docusate Sodium* (Docusate Sodium*) 100 Mg Capsule, 100 MG PO BID, #60 CAP 04/05/17 Cholecalciferol* (Vitamin D3*) 1,000 Unit Tablet, 1000 UNIT PO DAILY, TAB 04/05/17 Apixaban* (Eliquis*) 2.5 Mg Tablet, 2.5 MG PO BID, TAB 04/05/17 Primary Care Provider MD ARMAND Gomez DAVID J Apr 15, 2017 18:00
[2017-04-15] MEDS: FLUCONAZOLE 100 MG/NS (PMX) 50 ML IVPB SCH (19:54)
[2017-04-15 20:00] VITALS: BP 134/75; RESP 18
[2017-04-16 02:00] VITALS: BP 126/73; RESP 18
[2017-04-16] MEDS: LORAZEPAM 2 MG INJ IV SCH ×6 (03:37→23:30)
--- NOTE | 2017-04-16 03:51 | HP ---
DATE OF ADMISSION: 04/05/2017 CHIEF COMPLAINT: The patient is a 67-year-old female with history of chronic myeloid leukemia with recent chemo, admitted to [facility] on 04/05/2017 because of abdominal pain. The patient has extensive hepatic masses and was noted to have multiple large hepatic masses, some of them may have been bleeding. A CT scan also revealed extensive nodularity in the left retroperitoneum representing extensive portosystemic collateral vascular adenopathy. The patient prior to admission was DNR and do not intubate. The patient was seen by Dr. Terry from Oncology standpoint. The patient was also seen by from surgery standpoint. No surgical intervention was recommended. The patient was also seen by Dr. Parham from a standpoint. The patient was subsequently deemed appropriate for hospice care. The patient has increasing abdominal pain, and was started on a Dilaudid drip for pain control. The patient did not have any recent hematemesis or melena. The patient does have trace leg edema. The patient remains awake, alert, and responsive. No reported chest pain. The patient is breathing comfortably at rest. The patient has generalized weakness and the patient is extremely weak and stays in the bed. PAST MEDICAL HISTORY: 1. As stated above. 2. In addition, patient has history of bowel obstruction. PAST SURGICAL HISTORY: 1. Patient is status post Port-A-Cath placement. 2. Bilateral hip replacement. 3. Exploratory laparotomy. SOCIAL HISTORY: No smoking. No alcohol. FAMILY HISTORY: Noncontributory. PHYSICAL EXAMINATION: Patient conscious, awake, alert. VITAL SIGNS: Temperature 99, pulse 91, respirations 16, blood pressure 128/75, O2 sat 100 percent on 3 L nasal cannula. HEENT: Conjunctiva are normal. Oropharynx clear. NECK: Supple. No masses or thyromegaly. CHEST: Fairly clear. CV: S1, S2 normal. No murmur. ABDOMEN: The patient has a large tender mass. EXTREMITIES: Trace edema. NEUROLOGIC: Patient is awake, alert, follows simple commands. Has generalized weakness and appears cachectic. IMPRESSION: 1. 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 2. Chronic myelogenous leukemia in remission. 3. Pulmonary hypertension. PLAN: Patient has been started on IV Dilaudid drip which was increased to 1 mg an hour since patient was in pain despite 0.5 mg Dilaudid per hour. The patient will be on IV Ativan 0.5 mg IV q.4h for anxiety and will also start her on Levsin for secretions. IV Zofran for nausea, vomiting. We will discontinue all other medication. Will continue to optimize comfort care. The patient's urine culture recently noted to have Michaelle. The patient remains terminally ill. Will continue to optimize comfort care. The plan of care discussed with the nurse as well as the staff nurse. Dictated By: Kristian Cabral MD /ronan/wilton /Document#: [id number]
[2017-04-16] MEDS: PANTOPRAZOLE (EC) 40 MG TAB PO SCH ×2 (07:30→17:34)
[2017-04-16 07:54] VITALS: BP 96/74; RESP 18
[2017-04-16] MEDS: LUBIPROSTONE 24 MCG CAP PO SCH ×2 (08:01→21:00)
[2017-04-16] MEDS: FERROUS SULFATE (EC) 325 MG TAB PO SCH (08:01)
[2017-04-16] MEDS: DRONABINOL 2.5 MG CAP PO SCH ×2 (08:01→21:00)
[2017-04-16] MEDS: ESTRADIOL 1 MG TAB PO SCH ×2 (08:01→21:00)
[2017-04-16] MEDS: LORATADINE 10 MG TAB PO SCH (08:01)
[2017-04-16] MEDS: IMATINIB 400 MG TAB PO SCH (08:01)
[2017-04-16] MEDS: DOCUSATE SODIUM 100 MG CAP PO SCH ×2 (08:01→21:00)
[2017-04-16] MEDS: METHYLPREDNISOLONE 4 MG TAB PO SCH (08:02)
[2017-04-16] MEDS: FAMOTIDINE 20 MG TAB PO SCH ×2 (08:02→21:00)
[2017-04-16] MEDS: POLYETHYLENE GLYCOL 17 GM PACKET PO SCH (08:02)
[2017-04-16] MEDS: SILDENAFIL 20 MG TAB PO SCH ×3 (08:02→21:00)
[2017-04-16] MEDS: MULTIVITAMINS/MINERALS TAB PO SCH (08:02)
[2017-04-16] MEDS: CHOLECALCIFEROL 1,000 UNIT TAB PO SCH (08:03)
[2017-04-16] MEDS: ASCORBIC ACID 500 MG TAB PO SCH (08:03)
[2017-04-16] MEDS: BALSAM PERU/CASTOR OIL 60 GM TUBE TOP SCH (08:03)
[2017-04-16 14:30] VITALS: BP 120/79; RESP 16
[2017-04-16] MEDS: SOD CHLORIDE 0.9% 1,000 ML IV SCH (14:57)
[2017-04-16] MEDS: HYDROmorphONE 50 MG in DEXTROSE 5% 50 ML IV SCH (14:58)
--- NOTE | 2017-04-16 17:23 | QN ---
Documentation Comment Pt is now on a hospice program. She is quietly lying in bed and is in no distress. I agree with this decision. I will sign off the case but please recontact if I can be of any help. DHAVAL PERERA MD Apr 16, 2017 17:23
[2017-04-16 20:38] VITALS: BP 114/68; RESP 17
[2017-04-16] MEDS: FLUCONAZOLE 100 MG/NS (PMX) 50 ML IVPB SCH (20:49)
--- NOTE | 2017-04-16 23:41 | PN ---
Date/Time of Note Date/Time of Note DATE: 04/16/17 TIME: 23:37 Assessment/Plan Lines/Catheters IV Catheter Type (from Nrs): Portacath Flores in Place (from Nrs): No Assessment/Plan Chief Complaint/Hosp Course 1. Intrahepatic masses with peritoneal lesions: CT abd: multiple large hepatic masses, some of which suggest bleeding within the mass and extensive nodularity in the left retroperitoneum which may represent extensive portosystemic collateral vasculature or adenopathy. 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 DNR/DNI; Hospice eval; on comfort care -no surgical interventions required at this time -oncological f/u and tx -pain management with DERMATOLOGY SPECIALIST 2. Severe abdominal pain: 2/2 above; on dilaudid DERMATOLOGY SPECIALIST, improved pain -pain management per pain service -as above 3. Anemia: likely 2/2 recent chemo + CML vs. acute bleed; transfused 2 units 04/07 ; no acute bleed noted -monitor -transfuse as needed 4. Leukocytosis: recent chemo + uti; no fevers. normalized; -supportive -abx 5. Hyponatremia: likely 2/2 dehydration + vomiting + liver disease -optimize lytes -judicious fluid management 6. Elevated liver enzymes: 2/2 #1; improving -as above 7. UTI: no dysuria -encourage frequent bladder emptying -abx 8. Constipation: refusing bowel regimen -encourage bowel regimen 9. Hypokalemia: multifactorial; poor oral intake, normalized -replete and monitor -optimize lytes -monitor for cardiac arrhythmias -optimize nutrition 10. Hypomagnesemia: -optimize lytes -monitor for cardiac arrhythmias -optimize nutrition 11. Thrombocytopenia: no martha bleeding noted; -monitor -bleeding precautions 12. Hypocalcemia: likely 2/2 to poor nutrition -replete & monitor -monitor for cardiac arrhythmias 13. Hypoalbuminemia: likely 2/2 poor nutrition -nutrition optimization -supportive Patient seen and examined in collaboration with Dr. Eric Lee. Problems: Subjective 24 Hr Interval Summary Sleepy today. Abdominal pain improved. continues on dilaudid drip. Min temp. No corrigan, dizziness, cp, palpitations, sob, cough, n/v/d, chills. Hospice eval. Exam/Review of Systems Vital Signs Vitals Vital Signs Date Time Temp Pulse Resp B/P Pulse Ox O2 Delivery O2 Flow Rate FiO2 04/16/17 20:38 99.7 137 17 114/68 95 04/16/17 15:29 3.0 04/16/17 10:25 Nasal Cannula Intake and Output 04/15/17 04/15/17 04/16/17 15:00 23:00 07:00 Intake Total 1124 ml 99.8 ml Balance 1124 ml 99.8 ml Exam Free Text/Dictation Constitutional: alert, oriented, guarded Psych: anxious Head: atraumatic, normocephalic Eyes: nl lids, nl sclera ENMT: mucosa pink and dry Neck: non-tender, supple Respiratory: diminished to auscultation, portacath Cardiovascular: regular rate and rhythm, No edema Gastrointestinal: distended, hepatomegaly, surgical scars, tender, bowel sounds hypoactive Musculoskeletal: nl extremities to inspection Extremities: normal pulses, No edema Neurological: nl mental status, nl speech Skin: nl turgor, abrasions Lymph: enlarged Results Result Diagram: 04/13/17 0655 04/13/17 0719 ELLIOTT XIONG NP Apr 16, 2017 23:41
[2017-04-17 03:00] VITALS: BP 107/56; RESP 18
[2017-04-17] MEDS: LORAZEPAM 2 MG INJ IV SCH ×6 (03:30→23:30)
[2017-04-17] MEDS: HYDROmorphONE 50 MG in DEXTROSE 5% 50 ML IV SCH ×2 (06:16→21:28)
[2017-04-17] MEDS: PANTOPRAZOLE (EC) 40 MG TAB PO SCH (07:30)
[2017-04-17 08:43] VITALS: BP 114/63; RESP 14
[2017-04-17] MEDS: ESTRADIOL 1 MG TAB PO SCH (09:00)
[2017-04-17] MEDS: LORATADINE 10 MG TAB PO SCH (09:00)
[2017-04-17] MEDS: DOCUSATE SODIUM 100 MG CAP PO SCH (09:00)
[2017-04-17] MEDS: CHOLECALCIFEROL 1,000 UNIT TAB PO SCH (09:00)
[2017-04-17] MEDS: SILDENAFIL 20 MG TAB PO SCH (09:00)
[2017-04-17] MEDS: METHYLPREDNISOLONE 4 MG TAB PO SCH (09:00)
[2017-04-17] MEDS: POLYETHYLENE GLYCOL 17 GM PACKET PO SCH (09:00)
[2017-04-17] MEDS: MULTIVITAMINS/MINERALS TAB PO SCH (09:00)
[2017-04-17] MEDS: FERROUS SULFATE (EC) 325 MG TAB PO SCH (09:00)
[2017-04-17] MEDS: DRONABINOL 2.5 MG CAP PO SCH (09:00)
[2017-04-17] MEDS: LUBIPROSTONE 24 MCG CAP PO SCH (09:00)
[2017-04-17] MEDS: ASCORBIC ACID 500 MG TAB PO SCH (09:00)
[2017-04-17] MEDS: FAMOTIDINE 20 MG TAB PO SCH (09:00)
[2017-04-17] MEDS: IMATINIB 400 MG TAB PO SCH (09:00)
[2017-04-17] MEDS: BALSAM PERU/CASTOR OIL 60 GM TUBE TOP SCH (09:00)
[2017-04-17 14:19] VITALS: BP 103/55; RESP 14
[2017-04-17] MEDS: SOD CHLORIDE 0.9% 1,000 ML IV SCH (14:31)
--- NOTE | 2017-04-17 15:18 | PN ---
Date/Time of Note Date/Time of Note DATE: 04/17/17 TIME: 15:15 Assessment/Plan Lines/Catheters IV Catheter Type (from Nrs): PORTACATH Flores in Place (from Nrs): No Assessment/Plan Chief Complaint/Hosp Course 1. Intrahepatic masses with peritoneal lesions: CT abd: multiple large hepatic masses, some of which suggest bleeding within the mass and extensive nodularity in the left retroperitoneum which may represent extensive portosystemic collateral vasculature or adenopathy. 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 DNR/DNI; Hospice eval; on comfort care -no surgical interventions required at this time -oncological f/u and tx -pain management with WIRE WEAVER CLOTH 2. Severe abdominal pain: 2/2 above; on dilaudid WIRE WEAVER CLOTH, improved pain -pain management per pain service -as above 3. Anemia: likely 2/2 recent chemo + CML vs. acute bleed; transfused 2 units 04/07 ; no acute bleed noted -monitor -transfuse as needed 4. Leukocytosis: recent chemo + uti; no fevers. normalized; -supportive -abx 5. Hyponatremia: likely 2/2 dehydration + vomiting + liver disease -optimize lytes -judicious fluid management 6. Elevated liver enzymes: 2/2 #1; improving -as above 7. UTI: no dysuria -encourage frequent bladder emptying -abx 8. Constipation: refusing bowel regimen -encourage bowel regimen 9. Hypokalemia: multifactorial; poor oral intake, normalized -replete and monitor -optimize lytes -monitor for cardiac arrhythmias -optimize nutrition 10. Hypomagnesemia: -optimize lytes -monitor for cardiac arrhythmias -optimize nutrition 11. Thrombocytopenia: no martha bleeding noted; -monitor -bleeding precautions 12. Hypocalcemia: likely 2/2 to poor nutrition -replete & monitor -monitor for cardiac arrhythmias 13. Hypoalbuminemia: likely 2/2 poor nutrition -nutrition optimization -supportive Patient seen and examined in collaboration with Dr. Eric Lee. Problems: Subjective 24 Hr Interval Summary Unable to arouse. non-verbal indicators of pain not present. On hospice. On dilaudid drip. No n/v/d, fevers, chills, sz. Exam/Review of Systems Vital Signs Vitals Vital Signs Date Time Temp Pulse Resp B/P Pulse Ox O2 Delivery O2 Flow Rate FiO2 04/17/17 14:19 99.8 136 14 103/55 94 04/17/17 12:47 3.0 04/17/17 08:00 Nasal Cannula Intake and Output 04/16/17 04/16/17 04/17/17 14:59 22:59 06:59 Intake Total 881.20 ml 1078 ml 7 ml Balance 881.20 ml 1078 ml 7 ml Exam Free Text/Dictation Constitutional: lethargic, guarded Psych: anxious Head: atraumatic, normocephalic Eyes: nl lids, nl sclera ENMT: mucosa pink and dry Neck: non-tender, supple Respiratory: diminished to auscultation, portacath Cardiovascular: regular rate and rhythm, No edema Gastrointestinal: distended, hepatomegaly, surgical scars, tender, bowel sounds hypoactive Musculoskeletal: nl extremities to inspection Extremities: normal pulses, No edema Neurological: nl mental status, nl speech Skin: nl turgor, abrasions Lymph: enlarged Results Result Diagram: 04/13/17 0655 04/13/17 0719 ELLIOTT XIONG NP Apr 17, 2017 15:17
[2017-04-17 20:10] VITALS: BP 107/59; RESP 16
[2017-04-18] MEDS: SOD CHLORIDE 0.9% 1,000 ML IV SCH (00:20)
[2017-04-18 02:04] VITALS: BP 92/54; RESP 16
[2017-04-18] MEDS: LORAZEPAM 2 MG INJ IV SCH ×5 (03:30→21:08)
[2017-04-18] MEDS: BALSAM PERU/CASTOR OIL 60 GM TUBE TOP SCH (08:11)
[2017-04-18 08:21] VITALS: BP 107/64; RESP 16
[2017-04-18] MEDS: ACETAMINOPHEN 650 MG SUPP PR PRN (10:43)
[2017-04-18] MEDS: HYDROmorphONE 50 MG in DEXTROSE 5% 50 ML IV SCH (10:46)
--- NOTE | 2017-04-18 11:36 | PN ---
Date/Time of Note Date/Time of Note DATE: 04/18/17 TIME: 11:30 Assessment/Plan Lines/Catheters IV Catheter Type (from Nrs): Portacath Floers in Place (from Nrs): No Assessment/Plan Chief Complaint/Hosp Course 1. Intrahepatic masses with peritoneal lesions: CT abd: multiple large hepatic masses, some of which suggest bleeding within the mass and extensive nodularity in the left retroperitoneum which may represent extensive portosystemic collateral vasculature or adenopathy. 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 DNR/DNI; Hospice eval; on comfort care -no surgical interventions required at this time -pain management with COUNSELING AIDE 2. Severe abdominal pain: 2/2 above; on dilaudid COUNSELING AIDE, improved pain -pain management per pain service -as above 3. Anemia: likely 2/2 recent chemo + CML vs. acute bleed; transfused 2 units 04/07 ; no acute bleed noted -monitor -transfuse as needed 4. Leukocytosis: recent chemo + uti; no fevers. normalized; -supportive -abx 5. Hyponatremia: likely 2/2 dehydration + vomiting + liver disease -optimize lytes -judicious fluid management 6. Elevated liver enzymes: 2/2 #1; improving -as above 7. UTI: no dysuria -encourage frequent bladder emptying -abx 8. Constipation: refusing bowel regimen -encourage bowel regimen 9. Hypokalemia: multifactorial; poor oral intake, normalized -replete and monitor -optimize lytes -monitor for cardiac arrhythmias -optimize nutrition 10. Hypomagnesemia: -optimize lytes -monitor for cardiac arrhythmias -optimize nutrition 11. Thrombocytopenia: no martha bleeding noted; -monitor -bleeding precautions 12. Hypocalcemia: likely 2/2 to poor nutrition -replete & monitor -monitor for cardiac arrhythmias 13. Hypoalbuminemia: likely 2/2 poor nutrition -nutrition optimization -supportive Patient seen and examined in collaboration with Dr. Eric Lee. Problems: Subjective 24 Hr Interval Summary Appears comfortable. Fever this morning. Continued on Dilaudid drip. On hospice. No n/v/d, chills, corrigan, sz, sob, cough, pain. Exam/Review of Systems Vital Signs Vitals Vital Signs Date Time Temp Pulse Resp B/P Pulse Ox O2 Delivery O2 Flow Rate FiO2 04/18/17 08:21 101.9 136 16 107/64 95 04/17/17 22:11 Nasal Cannula 3.0 Intake and Output 04/17/17 04/17/17 04/18/17 15:00 23:00 07:00 Intake Total 155 ml 152 ml Balance 155 ml 152 ml Exam Free Text/Dictation Constitutional: lethargic, guarded Psych: anxious Head: atraumatic, normocephalic Eyes: nl lids, nl sclera ENMT: mucosa pink and dry Neck: non-tender, supple Respiratory: diminished to auscultation, portacath Cardiovascular: regular rate and rhythm, No edema Gastrointestinal: distended, hepatomegaly, surgical scars, tender, bowel sounds hypoactive Musculoskeletal: nl extremities to inspection Extremities: normal pulses, No edema Neurological: nl mental status, nl speech Skin: nl turgor, abrasions Lymph: enlarged MALIA XIONGIA RN ANESTHESIOLOGY Apr 18, 2017 11:36
[2017-04-18 14:00] VITALS: BP 90/54; RESP 20
[2017-04-18 20:13] VITALS: BP 112/63; RESP 17
[2017-04-19] MEDS: HYDROmorphONE 50 MG in DEXTROSE 5% 45 ML IV SCH ×3 (00:02→22:16)
[2017-04-19] MEDS: LORAZEPAM 2 MG INJ IV SCH ×6 (01:10→21:41)
[2017-04-19 02:20] VITALS: BP 87/51; RESP 16
[2017-04-19 08:15] VITALS: BP 89/50; RESP 20
[2017-04-19] MEDS: ACETAMINOPHEN 650 MG SUPP PR PRN (08:47)
[2017-04-19] MEDS: BALSAM PERU/CASTOR OIL 60 GM TUBE TOP SCH (08:48)
[2017-04-19] MEDS: SOD CHLORIDE 0.9% 1,000 ML IV SCH (13:47)
[2017-04-19 14:11] VITALS: BP 94/52; RESP 17
[2017-04-19 20:00] VITALS: BP 116/65; RESP 20
--- NOTE | 2017-04-19 22:02 | PN ---
Date/Time of Note Date/Time of Note DATE: 04/19/17 TIME: 22:02 Assessment/Plan Lines/Catheters IV Catheter Type (from Nrs): Norton Flores in Place (from Nrs): No Assessment/Plan Chief Complaint/Hosp Course 1. Intrahepatic masses with peritoneal lesions: CT abd: multiple large hepatic masses, some of which suggest bleeding within the mass and extensive nodularity in the left retroperitoneum which may represent extensive portosystemic collateral vasculature or adenopathy. 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 DNR/DNI; Hospice eval; on comfort care -no surgical interventions required at this time -pain management with BLACK BELT 2. Severe abdominal pain: 2/2 above; on dilaudid BLACK BELT, improved pain -pain management per pain service -as above 3. Anemia: likely 2/2 recent chemo + CML vs. acute bleed; transfused 2 units 04/07 ; no acute bleed noted -monitor -transfuse as needed 4. Leukocytosis: recent chemo + uti; no fevers. normalized; -supportive -abx 5. Hyponatremia: likely 2/2 dehydration + vomiting + liver disease -optimize lytes -judicious fluid management 6. Elevated liver enzymes: 2/2 #1; improving -as above 7. UTI: no dysuria -encourage frequent bladder emptying -abx 8. Constipation: refusing bowel regimen -encourage bowel regimen 9. Hypokalemia: multifactorial; poor oral intake, normalized -replete and monitor -optimize lytes -monitor for cardiac arrhythmias -optimize nutrition 10. Hypomagnesemia: -optimize lytes -monitor for cardiac arrhythmias -optimize nutrition 11. Thrombocytopenia: no martha bleeding noted; -monitor -bleeding precautions 12. Hypocalcemia: likely 2/2 to poor nutrition -replete & monitor -monitor for cardiac arrhythmias 13. Hypoalbuminemia: likely 2/2 poor nutrition -nutrition optimization -supportive Patient seen and examined in collaboration with Dr. Eric Lee. Problems: Subjective 24 Hr Interval Summary Appears comfortable. lethargic. Fevers intermittently. Continued on Dilaudid drip. On hospice. No n/v/d, chills, corrigan, sz, sob, cough, pain. Exam/Review of Systems Vital Signs Vitals Vital Signs Date Time Temp Pulse Resp B/P Pulse Ox O2 Delivery O2 Flow Rate FiO2 04/20/17 08:10 Nasal Cannula 3.0 04/20/17 08:00 98.8 127 24 112/65 96 Intake and Output 04/19/17 04/19/17 04/20/17 15:00 23:00 07:00 Intake Total 20 ml 215 ml 170 ml Balance 20 ml 215 ml 170 ml Exam Free Text/Dictation Constitutional: lethargic, guarded Psych: anxious Head: atraumatic, normocephalic Eyes: nl lids, nl sclera ENMT: mucosa pink and dry Neck: non-tender, supple Respiratory: diminished to auscultation, portacath Cardiovascular: regular rate and rhythm, No edema Gastrointestinal: distended, hepatomegaly, surgical scars, tender, bowel sounds hypoactive Musculoskeletal: nl extremities to inspection Extremities: normal pulses, No edema Neurological: lethargic Skin: nl turgor, abrasions Lymph: enlarged MAKAYLAINISTRADO,ELLIOTT [employer] MECH[employer]IC Apr 19, 2017 22:02
[2017-04-20] MEDS: LORAZEPAM 2 MG INJ IV SCH ×6 (01:13→20:11)
[2017-04-20 02:00] VITALS: BP 130/66; RESP 20
[2017-04-20] MEDS: HYDROmorphONE 50 MG in DEXTROSE 5% 45 ML IV SCH ×2 (07:03→20:15)
[2017-04-20 08:00] VITALS: BP 112/65; RESP 24
[2017-04-20] MEDS: BALSAM PERU/CASTOR OIL 60 GM TUBE TOP SCH (08:43)
[2017-04-20] MEDS: ATROPINE 1% 5 ML OPH SL PRN (12:51)
[2017-04-20 14:10] VITALS: BP 110/62; RESP 20
[2017-04-20] MEDS: SOD CHLORIDE 0.9% 1,000 ML IV SCH ×2 (15:21→20:14)
[2017-04-20 20:00] VITALS: BP 104/66; RESP 20
[2017-04-21] MEDS: LORAZEPAM 2 MG INJ IV SCH ×6 (01:00→20:50)
[2017-04-21 02:00] VITALS: BP 94/55; RESP 16
[2017-04-21] MEDS: HYDROmorphONE 50 MG in DEXTROSE 5% 45 ML IV SCH ×3 (05:28→22:48)
[2017-04-21] MEDS: BALSAM PERU/CASTOR OIL 60 GM TUBE TOP SCH (08:32)
[2017-04-21] MEDS: ATROPINE 1% 5 ML OPH SL PRN ×3 (08:32→22:50)
[2017-04-21 09:06] VITALS: BP 105/62; RESP 15
[2017-04-21 20:00] VITALS: BP 97/59; RESP 21
[2017-04-22] MEDS: LORAZEPAM 2 MG INJ IV SCH ×6 (01:03→21:00)
[2017-04-22] MEDS: ATROPINE 1% 5 ML OPH SL PRN ×2 (01:03→04:08)
[2017-04-22] MEDS: HYDROmorphONE 50 MG in DEXTROSE 5% 45 ML IV SCH ×2 (05:45→14:42)
[2017-04-22 08:00] VITALS: BP 110/66; RESP 20
[2017-04-22] MEDS: BALSAM PERU/CASTOR OIL 60 GM TUBE TOP SCH (09:00)
[2017-04-22] MEDS: SOD CHLORIDE 0.9% 1,000 ML IV SCH (13:22)
[2017-04-22 14:00] VITALS: BP 98/60; RESP 16
[2017-04-22 20:02] VITALS: BP 84/55; RESP 16
[2017-04-23] MEDS: LORAZEPAM 2 MG INJ IV SCH ×6 (01:00→21:47)
[2017-04-23 02:03] VITALS: BP 92/50; RESP 16
[2017-04-23] MEDS: HYDROmorphONE 50 MG in DEXTROSE 5% 45 ML IV SCH ×3 (02:13→18:06)
[2017-04-23 08:05] VITALS: BP 100/56; RESP 20
[2017-04-23 14:56] VITALS: BP 95/51; RESP 20
[2017-04-23] MEDS: SOD CHLORIDE 0.9% 1,000 ML IV SCH (15:21)
[2017-04-23 21:30] VITALS: BP 93/55; RESP 18
[2017-04-24] MEDS: LORAZEPAM 2 MG INJ IV SCH ×6 (01:42→21:33)
[2017-04-24] MEDS: HYDROmorphONE 50 MG in DEXTROSE 5% 45 ML IV SCH ×4 (01:44→17:40)
[2017-04-24 02:00] VITALS: BP 153/66; RESP 19
[2017-04-24 08:00] VITALS: BP 103/63; RESP 16
--- NOTE | 2017-04-24 09:45 | PN ---
DATE: LEVEL OF CARE: [facility] SUBJECTIVE DATA: The patient since yesterday has continued to decline and has become progressively more unresponsive. Patient also has irregular breathing with episodes of apnea. Patient was grimacing earlier and therefore Dilaudid drip was increased to 4 mg/hour from 3 mg/hr. The patient did not have any vomiting. No reported wheezing. Did not have any seizures. The patient did not have any significant p.o. intake since the admission. OBJECTIVE DATA: The patient is lethargic. Vital signs: Temperature 99.6, pulse 129, respirations 16, blood pressure 120/70, O2 sat 91 percent on 3 liters nasal cannula. HEENT: No eye discharge or redness. Neck: No mass. No JVD. Chest with a few coarse breath sounds. Diminished air entry at bases. CVS: Essentially normal, no murmur. Abdomen: Large mass present in the mid abdomen. Extremities: Trace edema. Dressing in place. No clubbing, cyanosis. Neurological: The patient is lethargic and no useful communication is possible. ASSESSMENT AND PLAN:: 1. 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 2. CML. 3. . PLAN: Patient to be continued on IV Dilaudid as described above. The patient did receive four doses of Ativan since midnight for anxiety. Continue routine comfort measures. Will continue to optimize comfort care. Plan has been discussed with Estrellita Vásquez. Dictated By: Kristian Cabral MD /ronan/karlee /Document#: [id number]
--- NOTE | 2017-04-24 12:10 | PN ---
DATE: 04/17/2017 SUBJECTIVE DATA: Level of care GIP. Primary diagnosis, metastatic malignant neuroendocrine tumor and comorbid CML and primary hypertension. Patient has continued to decline. The patient has become progressively more lethargic and has not had any p.o. intake. She also is developing terminal fever and has become progressively more tachycardic. The patient received 4 doses of Ativan since yesterday for anxiety. The patient is not arousable. The patient also had irregular breathing. The patient remains on IV Dilaudid drip at 4 mg an hour. PHYSICAL EXAM: Physical exam showed the patient being nonverbal. VITAL SIGNS: Temperature 99.8, pulse 136, respiration 14, blood pressure 103/55, O2 sat 95 and regular. HEENT: No eye discharge or redness. CHEST: Chest reveals diminished anterior bases. CV: Sinus tachycardia. ABDOMEN: Abdomen has a large mass. EXTREMITIES: No edema. No cyanosis. NEURO: The patient is nonverbal. IMPRESSION: 1. Metastatic malignant neuroendocrine tumor. 2. CML. 3. Primary hypertension. PLAN: Continue IV Dilaudid drip as before as patient's stomach symptoms are controlled. Continue Ativan on a p.r.n. basis. Continue IV Ativan. Continue other supportive care. We will continue to optimize comfort care. The patient remains terminally ill appropriate for [facility] level of care. Dictated By: Kristian Cabral MD /ronan/ /Document#: [id number]
[2017-04-24 14:00] VITALS: BP 112/70; RESP 18
[2017-04-24] MEDS: SOD CHLORIDE 0.9% 1,000 ML IV SCH (16:17)
[2017-04-24 19:53] VITALS: BP 115/62; RESP 16
[2017-04-25] MEDS: LORAZEPAM 2 MG INJ IV SCH ×3 (01:07→09:08)
[2017-04-25] MEDS: HYDROmorphONE 50 MG in DEXTROSE 5% 45 ML IV SCH ×4 (06:17→22:51)
[2017-04-25 08:00] VITALS: BP 118/76; RESP 18
[2017-04-25] MEDS: NACL 0.9% 3 ML SYG IV SCH (09:09)
--- NOTE | 2017-04-25 12:28 | PN ---
DATE: 04/24/2017 SUBJECTIVE: Followup on metastatic neuroendocrine tumor, chronic myeloid leukemia, and pulmonary hypertension. The patient has continued to decline and has now periods of apnea and irregular respiration. The patient remains nonverbal. The patient has not had any p.o. intake for the last several days. The patient did not have any vomiting. The patient has intermittent low-grade fever. PHYSICAL EXAM: GENERAL: Nonverbal. VITAL SIGNS: Temperature 99, pulse 133, respirations 16, blood pressure 103/63, O2 sat 94 percent. HEENT: No eye or ear discharge. NECK: No mass. CHEST: Diminished at bases. CV: S1, S2 normal. Sinus tachycardia. ABDOMEN: Large palpable tumor; nontender now. EXTREMITIES: No leg edema. No cyanosis. NEURO: The patient is nonverbal. IMPRESSION: 1. 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 2. Chronic myeloid leukemia. 3. Pulmonary hypertension. PLAN: The patient's Dilaudid has been increased to 10 mg an hour. Continue Ativan every 4 hours. Continue atropine drops for secretion and Duoneb for chest congestion as needed. The patient remains appropriate for GI level of care. Plan was discussed with charge nurse as well as nursing staff. Dictated By: Kristian Cabral MD /ronan/juan luis /Document#: [id number]
[2017-04-25] MEDS: LORAZEPAM 2 MG INJ IV PRN (12:32)
--- NOTE | 2017-04-25 13:13 | PN ---
Date/Time of Note Date/Time of Note DATE: 04/25/17 TIME: 13:13 Assessment/Plan VTE Prophylaxis VTE Prophylaxis Intervention: other Lines/Catheters IV Catheter Type (from [facility]): korina cath Urinary Cath still in place: No Assessment/Plan Chief Complaint/Hosp Course 1. 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 2. Chronic myeloid leukemia. 3. Pulmonary hypertension. PLAN: The patient's Dilaudid has been increased to 10 mg an hour. Continue Ativan every 4 hours. Continue atropine drops for secretion and Duoneb for chest congestion as needed. The patient remains appropriate for GI level of care. Plan was discussed with charge nurse as well as nursing staff. Problems: Subjective 24 Hr Interval Summary Free Text/Dictation Patient is sedated, comfortable Exam/Review of Systems Vital Signs Vitals Vital Signs Date Time Temp Pulse Resp B/P Pulse Ox O2 Delivery O2 Flow Rate FiO2 04/25/17 11:34 Nasal Cannula 3.0 04/25/17 08:00 97.8 84 18 118/76 94 Intake and Output 04/24/17 04/24/17 04/25/17 15:00 23:00 07:00 Intake Total 100 ml 510 ml 290 ml Balance 100 ml 510 ml 290 ml Exam Constitutional: well developed Head: atraumatic, normocephalic Neck: supple Respiratory: diminished breath sounds Cardiovascular: regular rate and rhythm Gastrointestinal: non-tender, soft Extremities: normal pulses Medications Medications Current Medications Sodium Biphosphate/ Sodium Phosphate (Fleet Enema) 133 ml DAILY PRN CA CONSTIPATION; Start 04/05/17 at 18:30 Miscellaneous Information (Pending [facility] Order For Wound Care) This patient corrigan... PRN PRN XX WOUND CARE; Start 04/06/17 at 04:00 Bisacodyl 10 mg 10 mg DAILY PRN CA CONSTIPATION; Start 04/07/17 at 12:00 Sodium Chloride (NS) 1,000 ml @ 10 mls/hr Q24H IV Last administered on t 16:17; Admin Dose 10 MLS/HR; Start 04/15/17 at 15:21 Ondansetron HCl (Zofran Inj) 4 mg Q6H PRN IV NAUSEA AND/OR VOMITING; Start at 15:30 Acetaminophen 650 mg 650 mg Q6H PRN CA FEVER GREATER THAN 100.6 Last administered on 04/19/17 08:47; Admin Dose 650 MG; Start 04/18/17 at 10:30 Hydromorphone HCl/ Dextrose (Dilaudid/D5W) 50 ml @ 1 mls/hr TITRATE IV Last administered on 04/25/17 13:01; Admin Dose 11 MLS/HR; Start 04/18/17 at 11:00 Atropine Sulfate (Atropine 1% Oph) 2 drop Q2H PRN SL PRN SECRETIONS Last administered on 04/22/17 04:08; Admin Dose 2 DROP; Start 04/19/17 at 23:30 Lorazepam (Ativan) 1 mg Q4 PRN IV AGITATION/ANXIETY Last administered on 12:32; Admin Dose 1 MG; Start 04/25/17 at 12:30 JOSH CAR Apr 25, 2017 13:13
[2017-04-25 14:00] VITALS: BP 122/72; RESP 18
[2017-04-25] MEDS: SOD CHLORIDE 0.9% 1,000 ML IV SCH (15:21)
[2017-04-25 19:44] VITALS: BP 115/66; RESP 15
[2017-04-26] MEDS: HYDROmorphONE 50 MG in DEXTROSE 5% 45 ML IV SCH ×5 (03:43→19:00)
--- NOTE | 2017-04-26 05:29 | PN ---
DATE: 04/23/2017 SUBJECTIVE DATA: The patient seems to have pain whenever she is repositioned and dose of Dilaudid has been progressively increased to 10 mg an hour. The patient now seems comfortable. No reported temperature spike. No reported vomiting. No reported bleeding of any site. Patient remains nonverbal. We found patient to be unresponsive. OBJECTIVE DATA: VITAL SIGNS: Temperature 98.5, pulse 123, respirations 20, blood pressure 95/51, O2 sat 98 percent. HEENT: No eye discharge. Oropharynx is without significant secretions. NECK: No mass. CHEST: Diminished air entry at bases. CVS: Normal sinus tachycardia. ABDOMEN: Distended due to large mass. EXTREMITIES: No edema. NEUROLOGIC: Patient is nonverbal. IMPRESSION: 1. Metastatic neuroendocrine tumor with involvement of liver. 2. Chronic myeloid leukemia. 3. Pulmonary hypertension. PLAN: Continue with Dilaudid drip at 10 mg an hour and optimize for further comfort care. The patient will be continued on IV Ativan 0.5 mg q.4 h p.r.n. and has not required any atropine drops today. Patient did get a couple of doses of atropine drops for secretions. Patient remains n.p.o. and terminally ill. Patient's sister was recently updated regarding the patient's condition. Plan of care discussed with the [facility] nurse Leora who is taking care of her today. Dictated By: Kristian Cabral MD /ronan/adriana /Document#: [id number]
[2017-04-26 07:55] VITALS: BP 113/74; RESP 22
--- NOTE | 2017-04-26 09:05 | PN ---
DATE: 04/18/2017 SUBJECTIVE DATA: Level of care, GIP. Primary diagnosis, malignant neuroendocrine tumor, with CML and pulmonary hypertension. The patient since yesterday has continued decline. The patient also developed terminal fever with a fever of 101.4 earlier this morning. After Tylenol it has gone down to 98.5. Patient also became progressively more tachycardic with heart rate ranging from 117 through 136. Blood pressure has been hovering in the low 90s to low 100s. The patient is minimally responsive to pain and tactile stimuli. The patient has irregular breathing with occasional apneic episodes, lasting up to 5 seconds. The patient's dilator had been increased to 5 mg an hour. Patient found to be lethargic. OBJECTIVE DATA: VITAL SIGNS: Temperature 98.5, pulse 117, blood pressure 90/54, respirations 20, O2 sat 91 percent on 3 L nasal cannula. HEENT: HEENT, no eye discharge or redness. NECK: No mass. RESPIRATORY: A few coarse breath sounds. Diminished air entry. CARDIAC: S1, S2. Tachycardia. ABDOMEN: Large mass. EXTREMITIES: Slight edema. NEUROLOGIC: IMPRESSION: 1. Neuroendocrine tumor involving the liver. 2. CML. 3. Pulmonary hypertension. Patient remains critically ill. We will continue to optimize comfort care. As mentioned above the patient's Dilaudid dose was increased to 5 mg an hour. The patient continues to receive IV Ativan q.4 hours for anxiety. The patient remains terminally ill and appropriate for [facility] level of care. Dictated By: Kristian Cabral MD /ronan/wilton /Document#: [id number]
--- NOTE | 2017-04-26 14:01 | PN ---
Date/Time of Note Date/Time of Note DATE: 04/26/17 TIME: 14:00 Assessment/Plan VTE Prophylaxis VTE Prophylaxis Intervention: other Lines/Catheters IV Catheter Type (from [facility]): port a cath Urinary Cath still in place: No Assessment/Plan Chief Complaint/Hosp Course 1. 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 2. Chronic myeloid leukemia. 3. Pulmonary hypertension. PLAN: The patient's Dilaudid has been increased to 10 mg an hour. Continue Ativan every 4 hours. Continue atropine drops for secretion and Duoneb for chest congestion as needed. The patient remains appropriate for GI level of care. Plan was discussed with charge nurse as well as nursing staff. Problems: Subjective 24 Hr Interval Summary Free Text/Dictation Patient resting comfortably Exam/Review of Systems Vital Signs Vitals Vital Signs Date Time Temp Pulse Resp B/P Pulse Ox O2 Delivery O2 Flow Rate FiO2 04/26/17 08:10 Nasal Cannula 3.0 04/26/17 07:55 98.4 127 22 113/74 95 Intake and Output 04/25/17 04/25/17 04/26/17 15:00 23:00 07:00 Intake Total 50 ml 214 ml 181 ml Balance 50 ml 214 ml 181 ml Exam Constitutional: frail Head: atraumatic, normocephalic Neck: supple Respiratory: diminished breath sounds Cardiovascular: regular rate and rhythm Gastrointestinal: non-tender, soft Medications Medications Current Medications Sodium Biphosphate/ Sodium Phosphate (Fleet Enema) 133 ml DAILY PRN [place] CONSTIPATION; Start 04/05/17 at 18:30 Miscellaneous Information (Pending [facility] Order For Wound Care) This patient corrigan... PRN PRN XX WOUND CARE; Start 04/06/17 at 04:00 Bisacodyl 10 mg 10 mg DAILY PRN [place] CONSTIPATION; Start 04/07/17 at 12:00 Sodium Chloride (NS) 1,000 ml @ 10 mls/hr Q24H IV Last administered on 16:17; Admin Dose 10 MLS/HR; Start 04/15/17 at 15:21 Ondansetron HCl (Zofran Inj) 4 mg Q6H PRN IV NAUSEA AND/OR VOMITING; Start at 15:30 Acetaminophen 650 mg 650 mg Q6H PRN [place] FEVER GREATER THAN 100.6 Last administered on 04/19/17 08:47; Admin Dose 650 MG; Start 04/18/17 at 10:30 Hydromorphone HCl/ Dextrose (Dilaudid/D5W) 50 ml @ 1 mls/hr TITRATE IV Last administered on 04/26/17 13:42; Admin Dose 12 MLS/HR; Start 04/18/17 at 11:00 Atropine Sulfate (Atropine 1% Oph) 2 drop Q2H PRN SL PRN SECRETIONS Last administered on 04/22/17 04:08; Admin Dose 2 DROP; Start 04/19/17 at 23:30 Lorazepam (Ativan) 1 mg Q4 PRN IV AGITATION/ANXIETY Last administered on 12:32; Admin Dose 1 MG; Start 04/25/17 at 12:30 JOSH CAR Apr 26, 2017 14:01
[2017-04-26] MEDS: SOD CHLORIDE 0.9% 1,000 ML IV SCH (15:21)
[2017-04-26 20:45] VITALS: BP 112/68; RESP 16
[2017-04-27] MEDS: HYDROmorphONE 50 MG in DEXTROSE 5% 45 ML IV SCH ×5 (00:59→18:59)
[2017-04-27] MEDS: ATROPINE 1% 5 ML OPH SL PRN ×2 (02:05→05:30)
--- NOTE | 2017-04-27 11:41 | PN ---
Date/Time of Note Date/Time of Note DATE: 04/27/17 TIME: 11:41 Assessment/Plan VTE Prophylaxis VTE Prophylaxis Intervention: other Lines/Catheters IV Catheter Type (from [facility]): PORT-A-CATH Urinary Cath still in place: No Assessment/Plan Chief Complaint/Hosp Course 1. 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 2. Chronic myeloid leukemia. 3. Pulmonary hypertension. PLAN: The patient's Dilaudid has been increased to 10 mg an hour. Continue Ativan every 4 hours. Continue atropine drops for secretion and Duoneb for chest congestion as needed. The patient remains appropriate for GI level of care. Plan was discussed with charge nurse as well as nursing staff. Problems: Subjective 24 Hr Interval Summary Free Text/Dictation Patient is not verbally responsive Exam/Review of Systems Vital Signs Vitals Vital Signs Date Time Temp Pulse Resp B/P Pulse Ox O2 Delivery O2 Flow Rate FiO2 04/26/17 20:45 99.1 117 16 112/68 100 04/26/17 20:00 Nasal Cannula 3.0 Intake and Output 04/26/17 04/26/17 04/27/17 15:00 23:00 07:00 Intake Total 89 ml 170 ml 220 ml Balance 89 ml 170 ml 220 ml Exam Constitutional: well developed Head: atraumatic, normocephalic Neck: supple Respiratory: diminished breath sounds Cardiovascular: regular rate and rhythm Gastrointestinal: non-tender, soft Extremities: normal pulses Medications Medications Current Medications Sodium Biphosphate/ Sodium Phosphate (Fleet Enema) 133 ml DAILY PRN [place] CONSTIPATION; Start 04/05/17 at 18:30 Miscellaneous Information (Pending [facility] Order For Wound Care) This patient corrigan... PRN PRN XX WOUND CARE; Start 04/06/17 at 04:00 Bisacodyl 10 mg 10 mg DAILY PRN [place] CONSTIPATION; Start 04/07/17 at 12:00 Sodium Chloride (NS) 1,000 ml @ 10 mls/hr Q24H IV Last administered on t 16:17; Admin Dose 10 MLS/HR; Start 04/15/17 at 15:21 Ondansetron HCl (Zofran Inj) 4 mg Q6H PRN IV NAUSEA AND/OR VOMITING; Start at 15:30 Acetaminophen 650 mg 650 mg Q6H PRN [place] FEVER GREATER THAN 100.6 Last administered on 04/19/17 08:47; Admin Dose 650 MG; Start 04/18/17 at 10:30 Hydromorphone HCl/ Dextrose (Dilaudid/D5W) 50 ml @ 1 mls/hr TITRATE IV Last administered on 04/27/17 10:07; Admin Dose 12 MLS/HR; Start 04/18/17 at 11:00 Atropine Sulfate (Atropine 1% Oph) 2 drop Q2H PRN SL PRN SECRETIONS Last administered on 04/27/17 05:30; Admin Dose 2 DROP; Start 04/19/17 at 23:30 Lorazepam (Ativan) 1 mg Q4 PRN IV AGITATION/ANXIETY Last administered on 12:32; Admin Dose 1 MG; Start 04/25/17 at 12:30 JOSH CAR Apr 27, 2017 11:41
[2017-04-27 16:52] VITALS: BP 128/75; RESP 22
[2017-04-27] MEDS: SOD CHLORIDE 0.9% 1,000 ML IV SCH ×2 (18:59→21:16)
[2017-04-27 19:30] VITALS: BP 120/71; RESP 19
[2017-04-27] MEDS: LORAZEPAM 2 MG INJ IV PRN (21:15)
[2017-04-28] MEDS: HYDROmorphONE 50 MG in DEXTROSE 5% 45 ML IV SCH ×6 (00:34→22:03)
[2017-04-28 02:00] VITALS: BP 111/70; RESP 18
[2017-04-28 07:25] VITALS: BP 129/71; RESP 16
--- NOTE | 2017-04-28 12:39 | PN ---
Date/Time of Note Date/Time of Note DATE: 04/28/17 TIME: 12:39 Assessment/Plan VTE Prophylaxis VTE Prophylaxis Intervention: other Lines/Catheters IV Catheter Type (from [facility]): Port-A-Cath Urinary Cath still in place: No Assessment/Plan Chief Complaint/Hosp Course 1. 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 2. Chronic myeloid leukemia. 3. Pulmonary hypertension. PLAN: The patient's Dilaudid has been increased to 10 mg an hour. Continue Ativan every 4 hours. Continue atropine drops for secretion and Duoneb for chest congestion as needed. The patient remains appropriate for GI level of care. Plan was discussed with charge nurse as well as nursing staff. Problems: Subjective 24 Hr Interval Summary Free Text/Dictation Patient is not responsive. Exam/Review of Systems Vital Signs Vitals Vital Signs Date Time Temp Pulse Resp B/P Pulse Ox O2 Delivery O2 Flow Rate FiO2 04/28/17 10:48 Nasal Cannula 3.0 04/28/17 07:25 99.7 129 16 129/71 91 Intake and Output 04/27/17 04/27/17 04/28/17 15:00 23:00 07:00 Intake Total 0 ml 214 ml Balance 0 ml 214 ml Exam Constitutional: well developed Head: atraumatic, normocephalic Neck: supple Respiratory: diminished breath sounds Cardiovascular: regular rate and rhythm Gastrointestinal: non-tender, soft Extremities: normal pulses Medications Medications Current Medications Sodium Biphosphate/ Sodium Phosphate (Fleet Enema) 133 ml DAILY PRN [place] CONSTIPATION; Start 04/05/17 at 18:30 Miscellaneous Information (Pending [facility] Order For Wound Care) This patient corrigan... PRN PRN XX WOUND CARE; Start 04/06/17 at 04:00 Bisacodyl 10 mg 10 mg DAILY PRN [place] CONSTIPATION; Start 04/07/17 at 12:00 Sodium Chloride (NS) 1,000 ml @ 10 mls/hr Q24H IV Last administered on 18:59; Admin Dose 10 MLS/HR; Start 04/15/17 at 15:21 Ondansetron HCl (Zofran Inj) 4 mg Q6H PRN IV NAUSEA AND/OR VOMITING; Start at 15:30 Acetaminophen 650 mg 650 mg Q6H PRN [place] FEVER GREATER THAN 100.6 Last administered on 04/19/17 08:47; Admin Dose 650 MG; Start 04/18/17 at 10:30 Hydromorphone HCl/ Dextrose (Dilaudid/D5W) 50 ml @ 1 mls/hr TITRATE IV Last administered on 04/28/17 10:32; Admin Dose 12 MLS/HR; Start 04/18/17 at 11:00 Atropine Sulfate (Atropine 1% Oph) 2 drop Q2H PRN SL PRN SECRETIONS Last administered on 04/27/17 05:30; Admin Dose 2 DROP; Start 04/19/17 at 23:30 Lorazepam (Ativan) 1 mg Q4 PRN IV AGITATION/ANXIETY Last administered on 21:15; Admin Dose 1 MG; Start 04/25/17 at 12:30 JOSH CAR Apr 28, 2017 12:39
[2017-04-28 14:06] VITALS: BP 93/59; RESP 20
[2017-04-28] MEDS: ACETAMINOPHEN 650 MG SUPP PR PRN (15:25)
[2017-04-28 20:00] VITALS: BP 105/62; RESP 18
[2017-04-29] MEDS: HYDROmorphONE 50 MG in DEXTROSE 5% 45 ML IV SCH ×5 (04:32→21:20)
[2017-04-29 08:01] VITALS: BP 118/75; RESP 20
[2017-04-29] MEDS: LORAZEPAM 2 MG INJ IV PRN ×2 (09:33→14:06)
[2017-04-29] MEDS: ACETAMINOPHEN 650 MG SUPP PR PRN (09:39)
--- NOTE | 2017-04-29 09:46 | PN ---
DATE: 04/05/2017 SUBJECTIVE: Follow up on metastatic malignant neuroendocrine tumor, pulmonary hypertension. The patient continued to decline and is nonverbal. She did have some increased secretion yesterday and was started on atropine drops. The patient continues to have intermittent low-grade fever and remains tachycardic. The patient has not had any p.o. intake for several days. Her urine output has been 3000. The patient continues to receive Ativan for anxiety. No vomiting. No seizures. PHYSICAL EXAM: GENERAL: The patient is nonverbal. VITAL SIGNS: Temperature 98.8, pulse 127, respirations 24, blood pressure 112/65, O2 sat 92% on 2 L nasal cannula. NECK: No mass. CHEST: Reveals coarse breath sounds. CV: Heart sounds normal. No murmur. ABDOMEN: Large mass palpable, nontender at this time. EXTREMITIES: No edema. No cyanosis. NEURO: Nonverbal. IMPRESSION: 1. Metastatic malignant neuroendocrine tumor. 2. CML. 3. Pulmonary hypertension. 4. History of diabetes mellitus. PLAN: The patient remains appropriate for GI level of care. Continues IV Dilaudid 5 mg an hour, Ativan 0.5 mg IV q.4 hours, atropine drops for secretion, and Duoneb for chest condition. Plan of care discussed with the patient's nurse in detail. The patient remains terminally ill. Dictated By: Kristian Cabral MD /ronan/juan luis /Document#: [id number]
--- NOTE | 2017-04-29 09:54 | PN ---
DATE: 04/05/2017 SUBJECTIVE DATA: Follow up on metastatic endocrine tumor involving liver, chronic myeloid leukemia, and hypertension. The patient has continued to decline, and her Dilaudid dose has been increased to 8 mg an hour. The patient does have an intermittent low-grade fever. No reported vomiting, no bleeding. No reported wheezing. The patient remains nonverbal and no reported leg edema. PHYSICAL EXAM: GENERAL: The patient is nonverbal. VITAL SIGNS: T-maximum 99.4, pulse 100, respirations 15-21, blood pressure 110/66, and O2 sat 92 percent. HEENT: No eye discharge or redness. NECK: No mass. CHEST: A few coarse breath sounds. Diminished air at the bases. CV: The heart is normal. No murmur. ABDOMEN: A large mass in the mid abdomen, less tender now. EXTREMITIES: No leg edema. NEURO: The patient is nonverbal. IMPRESSION: Metastatic endocrine tumor involving the liver. Continue IV Dilaudid at 8 mg an hour. Continue IV Ativan 0.5 q.4 p.r.n. for anxiety. Continue other supportive care. The patient remains appropriate for hospice care. Plan of care discussed with the nursing staff. The patient remains terminally ill and appropriate for GI level of care. I happen to meet with Beka, regarding miscommunication about patient's bed. He told me that daily care apparently gave him a wrong message. He did speak with the patient's sister and has been updating her on regular basis. Dictated By: Kristian Cabral MD /ronan/juan luis /Document#: [id number]
--- NOTE | 2017-04-29 11:42 | PN ---
DATE: SUBJECTIVE DATA: Follow up on metastatic malignant neuroendocrine tumor, CML, and pulmonary hypertension. The patient has began to spike a temperature, also has become more tachycardic. Last blood pressure was in the 90s. The patient started Dilaudid and was recently increased to 6 mg an hour due to the pain and shortness of breath. During my examination, I still felt that she had this occasional moaning. Therefore, Dilaudid will be increased further to 7 mg an hour. The patient is essentially nonverbal. No reported vomiting. No reported bleeding. PHYSICAL EXAMINATION: GENERAL: Nonverbal. VITALS: T-max 100.5, pulse 130, blood pressure in the 90s, O2 sat 91 percent on 3 L. NECK: No mass. No JVD. CHEST: Few coarse breath sounds bilaterally. Diminished air entry at bases. CV SYSTEM: Normal sinus tachycardia. ABDOMEN: The patient has a tender mass. EXTREMITIES: No edema or cyanosis. NEURO: The patient is nonverbal, although occasionally moans during examination. IMPRESSION: Metastatic neuroendocrine tumor involving the liver. As mentioned above, will increase his Dilaudid to 7 mg an hour. We will continue Ativan 0.5 IV q.4 h p.r.n. for anxiety. Continue atropine drops for secretion, and Duoneb for chest congestion and cough. I spoke with the patient's sister, Yudith, telephone number [phone] and updated her regarding patient's condition and plan of care. Unfortunately, she told me that she had received a call that her sister had . 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 I sincerely apologized to her regarding this miscommunication. I spoke with nurse on the file who stated that he will look into the matter and inform his team. Dictated By: Kristian Cabral MD /ronan/juan luis /Document#: [id number]
[2017-04-29] MEDS: SOD CHLORIDE 0.9% 1,000 ML IV SCH (15:21)
--- NOTE | 2017-04-29 15:48 | PN ---
Date/Time of Note Date/Time of Note DATE: 04/29/17 TIME: 15:47 Assessment/Plan VTE Prophylaxis VTE Prophylaxis Intervention: other Lines/Catheters IV Catheter Type (from [facility]): PORT-A-CATH Urinary Cath still in place: No Assessment/Plan Chief Complaint/Hosp Course 1. 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 2. Chronic myeloid leukemia. 3. Pulmonary hypertension. PLAN: The patient's Dilaudid has been increased to 10 mg an hour. Continue Ativan every 4 hours. Continue atropine drops for secretion and Duoneb for chest congestion as needed. The patient remains appropriate for GI level of care. Plan was discussed with charge nurse as well as nursing staff. Problems: Subjective 24 Hr Interval Summary Free Text/Dictation Patient remain unresponsive Exam/Review of Systems Vital Signs Vitals Vital Signs Date Time Temp Pulse Resp B/P Pulse Ox O2 Delivery O2 Flow Rate FiO2 04/29/17 08:01 103.0 133 20 118/75 90 04/29/17 08:00 Nasal Cannula 3.0 Intake and Output 04/28/17 04/28/17 04/29/17 15:00 23:00 07:00 Intake Total 100 ml 220 ml 182 ml Balance 100 ml 220 ml 182 ml Exam Constitutional: frail Head: atraumatic, normocephalic Neck: supple Respiratory: diminished breath sounds Cardiovascular: regular rate and rhythm Gastrointestinal: non-tender, soft Medications Medications Current Medications Sodium Biphosphate/ Sodium Phosphate (Fleet Enema) 133 ml DAILY PRN [place] CONSTIPATION; Start 04/05/17 at 18:30 Miscellaneous Information (Pending [facility] Order For Wound Care) This patient corrigan... PRN PRN XX WOUND CARE; Start 04/06/17 at 04:00 Bisacodyl 10 mg 10 mg DAILY PRN [place] CONSTIPATION; Start 04/07/17 at 12:00 Sodium Chloride (NS) 1,000 ml @ 10 mls/hr Q24H IV Last administered on 18:59; Admin Dose 10 MLS/HR; Start 04/15/17 at 15:21 Ondansetron HCl (Zofran Inj) 4 mg Q6H PRN IV NAUSEA AND/OR VOMITING; Start at 15:30 Acetaminophen 650 mg 650 mg Q6H PRN [place] FEVER GREATER THAN 100.6 Last administered on 04/29/17 09:39; Admin Dose 650 MG; Start 04/18/17 at 10:30 Hydromorphone HCl/ Dextrose (Dilaudid/D5W) 50 ml @ 1 mls/hr TITRATE IV Last administered on 04/29/17 12:57; Admin Dose 12 MLS/HR; Start 04/18/17 at 11:00 Atropine Sulfate (Atropine 1% Oph) 2 drop Q2H PRN SL PRN SECRETIONS Last administered on 04/27/17 05:30; Admin Dose 2 DROP; Start 04/19/17 at 23:30 Lorazepam (Ativan) 1 mg Q4 PRN IV AGITATION/ANXIETY Last administered on 14:06; Admin Dose 1 MG; Start 04/25/17 at 12:30 Lorazepam (Ativan) 1 mg Q6H IV ; Start 04/29/17 at 18:00 JOSH CAR Apr 29, 2017 15:48
[2017-04-29] MEDS: LORAZEPAM 2 MG INJ IV SCH (18:21)
[2017-04-29 20:51] VITALS: BP 140/88; RESP 16
[2017-04-30] MEDS: LORAZEPAM 2 MG INJ IV SCH ×5 (00:02→20:24)
[2017-04-30] MEDS: HYDROmorphONE 50 MG in DEXTROSE 5% 45 ML IV SCH ×6 (01:17→23:04)
[2017-04-30 03:04] VITALS: BP 137/71; RESP 18
[2017-04-30 08:18] VITALS: BP 113/60; RESP 22
--- NOTE | 2017-04-30 08:19 | PN ---
DATE: 04/05/2017 SUBJECTIVE: Follow-up on metastatic malignant neuroendocrine tumor of abdomen, chronic myeloid leukemia, and hypertension. The patient, since yesterday, has continued decline. The patient has not had any p.o. intake. The patient also is having intermittent low-grade fevers. No reported vomiting. No reported bleeding of any site. The patient does not have any wheezing. PHYSICAL EXAM: GENERAL: The patient is awake, nonverbal. VITAL SIGNS: Temperature 99.5, pulse 106, respirations 20, blood pressure 89/50, and O2 sat 91 percent. HEENT: No eye discharge. Extraocular movements could not be tested. NECK: No mass. CHEST: With diminished air entry at bases with intermittent coarse breath sounds. CVS: S1, S2 normal. Sinus tachycardia. ABDOMEN: Large palpable mass almost in whole abdomen. EXTREMITIES: Trace edema. No clubbing, cyanosis. NEURO: The patient is lethargic and nonverbal. IMPRESSION: 1. Neuroendocrine tumor involving the liver. 2. Chronic myeloid leukemia. 3. Hypertension. PLAN: Dilaudid dose has been increased to 5 mg an hour for abdominal pain. For anxiety, the patient continues to receive 0.5 mg of Ativan q.4 around the clock. Continue Duoneb on p.r.n. basis for chest congestion. We will add [____] drops for secretions. The patient remains terminally ill. Remains appropriate for GI level of care. Dictated By: Kristian Cabral MD /ronan/juan luis /Document#: [id number]
[2017-04-30] MEDS: ATROPINE 1% 5 ML OPH SL PRN ×4 (10:06→20:27)
[2017-04-30] MEDS: SOD CHLORIDE 0.9% 1,000 ML IV SCH (10:38)
--- NOTE | 2017-04-30 13:42 | PN ---
Date/Time of Note Date/Time of Note DATE: 04/30/17 TIME: 13:42 Assessment/Plan VTE Prophylaxis VTE Prophylaxis Intervention: other Lines/Catheters IV Catheter Type (from [facility]): port-a-cath Urinary Cath still in place: No Assessment/Plan Chief Complaint/Hosp Course 1. 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 2. Chronic myeloid leukemia. 3. Pulmonary hypertension. PLAN: The patient's Dilaudid has been increased to 10 mg an hour. Continue Ativan every 4 hours. Continue atropine drops for secretion and Duoneb for chest congestion as needed. The patient remains appropriate for GI level of care. Plan was discussed with charge nurse as well as nursing staff. Problems: Subjective 24 Hr Interval Summary Free Text/Dictation Patient is not responsive Exam/Review of Systems Vital Signs Vitals Vital Signs Date Time Temp Pulse Resp B/P Pulse Ox O2 Delivery O2 Flow Rate FiO2 04/30/17 09:56 Nasal Cannula 3.0 04/30/17 08:18 98.2 123 22 113/60 90 Intake and Output 04/29/17 04/29/17 04/30/17 15:00 23:00 07:00 Intake Total 88 ml 220 ml 220 ml Balance 88 ml 220 ml 220 ml Exam Constitutional: well developed Head: atraumatic, normocephalic Neck: supple Respiratory: diminished breath sounds Cardiovascular: regular rate and rhythm Gastrointestinal: non-tender, soft Extremities: normal pulses Medications Medications Current Medications Sodium Biphosphate/ Sodium Phosphate (Fleet Enema) 133 ml DAILY PRN [place] CONSTIPATION; Start 04/05/17 at 18:30 Miscellaneous Information (Pending [facility] Order For Wound Care) This patient corrigan... PRN PRN XX WOUND CARE; Start 04/06/17 at 04:00 Bisacodyl 10 mg 10 mg DAILY PRN [place] CONSTIPATION; Start 04/07/17 at 12:00 Sodium Chloride (NS) 1,000 ml @ 10 mls/hr Q24H IV Last administered on t 10:38; Admin Dose 10 MLS/HR; Start 04/15/17 at 15:21 Ondansetron HCl (Zofran Inj) 4 mg Q6H PRN IV NAUSEA AND/OR VOMITING; Start at 15:30 Acetaminophen 650 mg 650 mg Q6H PRN [place] FEVER GREATER THAN 100.6 Last administered on 04/29/17 09:39; Admin Dose 650 MG; Start 04/18/17 at 10:30 Hydromorphone HCl/ Dextrose (Dilaudid/D5W) 50 ml @ 1 mls/hr TITRATE IV Last administered on 04/30/17 10:34; Admin Dose 15 MLS/HR; Start 04/18/17 at 11:00 Atropine Sulfate (Atropine 1% Oph) 2 drop Q2H PRN SL PRN SECRETIONS Last administered on 04/30/17 10:06; Admin Dose 2 DROP; Start 04/19/17 at 23:30 Lorazepam (Ativan) 1 mg Q4 PRN IV AGITATION/ANXIETY Last administered on 14:06; Admin Dose 1 MG; Start 04/25/17 at 12:30 Lorazepam (Ativan) 1 mg Q6H IV Last administered on 04/30/17 11:17; Admin Dose 1 MG; Start 04/29/17 at 18:00 JOSH CAR Apr 30, 2017 13:42
[2017-04-30 14:00] VITALS: BP 130/64; RESP 18
[2017-04-30] MEDS ORDERED: HYDROmorphONE 2 MG TAB PO PRN (15:00)
[2017-04-30] MEDS ORDERED: HYDROmorphONE 2 MG/ML SYG IV PRN (15:30)
[2017-04-30 20:34] VITALS: BP 106/60; RESP 20
[2017-05-01] MEDS: LORAZEPAM 2 MG INJ IV SCH ×6 (02:28→20:00)
[2017-05-01] MEDS: HYDROmorphONE 50 MG in DEXTROSE 5% 45 ML IV SCH ×2 (02:44→06:01)
[2017-05-01] MEDS: ATROPINE 1% 5 ML OPH SL PRN ×3 (02:45→15:53)
[2017-05-01 02:52] VITALS: BP 118/63; RESP 22
[2017-05-01 08:04] VITALS: BP 80/53; RESP 21
[2017-05-01] MEDS: NACL 0.9% 3 ML SYG IV SCH ×3 (08:38→17:33)
[2017-05-01] MEDS: DEXTROSE 5% IVPB SCH ×3 (09:40→17:33)
[2017-05-01] MEDS: HYDROMORPHONE IVPB SCH ×3 (09:40→17:33)
--- NOTE | 2017-05-01 11:10 | PN ---
Date/Time of Note Date/Time of Note DATE: 05/01/17 TIME: 11:09 Assessment/Plan VTE Prophylaxis VTE Prophylaxis Intervention: other Lines/Catheters IV Catheter Type (from [facility]): korina cath Urinary Cath still in place: No Assessment/Plan Chief Complaint/Hosp Course 1. 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 2. Chronic myeloid leukemia. 3. Pulmonary hypertension. PLAN: The patient's Dilaudid has been increased to 10 mg an hour. Continue Ativan every 4 hours. Continue atropine drops for secretion and Duoneb for chest congestion as needed. The patient remains appropriate for GI level of care. Plan was discussed with charge nurse as well as nursing staff. Problems: Subjective 24 Hr Interval Summary Free Text/Dictation Patient remains unresponsive Exam/Review of Systems Vital Signs Vitals Vital Signs Date Time Temp Pulse Resp B/P Pulse Ox O2 Delivery O2 Flow Rate FiO2 05/01/17 08:04 99.3 62 21 80/53 97 05/01/17 08:04 3.0 04/30/17 20:25 Nasal Cannula Intake and Output 04/30/17 04/30/17 05/01/17 15:00 23:00 07:00 Intake Total 510 ml 180 ml 205 ml Balance 510 ml 180 ml 205 ml Exam Constitutional: frail Head: atraumatic, normocephalic Neck: supple Respiratory: diminished breath sounds Gastrointestinal: non-tender, soft Extremities: normal pulses Medications Medications Current Medications Sodium Biphosphate/ Sodium Phosphate (Fleet Enema) 133 ml DAILY PRN [place] CONSTIPATION; Start 04/05/17 at 18:30 Miscellaneous Information (Pending [facility] Order For Wound Care) This patient corrigan... PRN PRN XX WOUND CARE; Start 04/06/17 at 04:00 Bisacodyl 10 mg 10 mg DAILY PRN [place] CONSTIPATION; Start 04/07/17 at 12:00 Sodium Chloride (NS) 1,000 ml @ 10 mls/hr Q24H IV Last administered on t 10:38; Admin Dose 10 MLS/HR; Start 04/15/17 at 15:21 Ondansetron HCl (Zofran Inj) 4 mg Q6H PRN IV NAUSEA AND/OR VOMITING; Start at 15:30 Acetaminophen (Tylenol Supp) 650 mg Q6H PRN [place] FEVER GREATER THAN 100.6 Last administered on 04/29/17 09:39; Admin Dose 650 MG; Start 04/18/17 at 10:30 Atropine Sulfate (Atropine 1% Oph) 2 drop Q2H PRN SL PRN SECRETIONS Last administered on 05/01/17 10:22; Admin Dose 2 DROP; Start 04/19/17 at 23:30 Lorazepam (Ativan) 1 mg Q4 PRN IV AGITATION/ANXIETY Last administered on 14:06; Admin Dose 1 MG; Start 04/25/17 at 12:30 Lorazepam (Ativan) 1 mg Q4 IV Last administered on 05/01/17 08:38; Admin Dose 1 MG; Start 04/30/17 at 17:00 Hydromorphone HCl 2 mg 2 mg Q4H PRN IV BREAKTHROUGH PAIN; Start 04/30/17 at 15: 30 Hydromorphone HCl/ Dextrose (Dilaudid/D5W) 100 ml @ 15 mls/hr TITRATE IVPB Last administered on 05/01/17 09:40; Admin Dose 15 MLS/HR; Start 05/01/17 at 08: 00 JOSH CAR May 01, 2017 11:10
--- NOTE | 2017-05-01 13:14 | PN ---
Date/Time of Note Date/Time of Note DATE: 05/01/17 TIME: 13:13 Assessment/Plan VTE Prophylaxis VTE Prophylaxis Intervention: other (Patient is on Hospice and actively dying) Lines/Catheters IV Catheter Type (from [facility]): korina cath Urinary Cath still in place: No Assessment/Plan Chief Complaint/Hosp Course Ms Cruz is a 67-year-old female with history of chronic myeloid leukemia status post recent chemo, admitted to [facility] on 2016 due complaints of abdominal pain found to have multiple large hepatic masses, with some of them bleeding, CT scan also showed revealed extensive nodularity in the left retroperitoneum representing extensive portosystemic collateral vascular adenopathy. As per the records, patient has a history of neuroendocrine tumors to the liver. Patient's condition continued to deteriorate during the hospitalization and has since been admitted to the In- patient hospice unit. She has been having issues with Pain, excess secretions and occasional anxiety. Problems: Assessment/Plan For pain: Patient continues to have issues with pain especially during repositioning. She is currently on Dilaudid 15 mg/hr which was increased yesterday. Will recommend to increase the bolus dose to 2 mg IV every 15 minutes as needed which can be given prior to repositioning. For excess secretions: Patient has been having issues with excess secretions for which she is on Atropine drops 1% 2 drops every 2 hrs as needed and has received 6 doses in the last 24 hrs. Will recommend to schedule the Atropine drops at 2 drops every 6 hrs ATC and every 2 hrs prn. For anxiety: Her anxiety appears to be well controlled on Ativan 1 mg IV every 4 hrs ATC and every 4 hrs prn. Recommend to continue the same. Recommend to continue other comfort measures such as routine oral and eye care as well as repositioning for comfort. Patient is less responsive today and hypotensive and continues to have active symptoms and appears appropriate for [facility] level of care and is hemodynamically too unstable to be transferred. Subjective 24 Hr Interval Summary Free Text/Dictation Patient currently unresponsive but moans occasionally especially during repositioning. Dilaudid drip increased to 15 mg yesterday and a bolus dose of 2 mg every 4 hrs as needed. As per the nurse, she still appears to moan when she is repositioned. She also has been having excess secretions and has received 6 doses of Atropine drops in the 24 hrs. Her issues with anxiety appear to be well controlled on Ativan 1 mg IV every 4 hrs ATC. Exam/Review of Systems Vital Signs Vitals Vital Signs Date Time Temp Pulse Resp B/P Pulse Ox O2 Delivery O2 Flow Rate FiO2 05/01/17 11:18 Nasal Cannula 3.0 05/01/17 08:04 99.3 62 21 80/53 97 Intake and Output 04/30/17 04/30/17 05/01/17 15:00 23:00 07:00 Intake Total 510 ml 180 ml 205 ml Balance 510 ml 180 ml 205 ml Exam Constitutional: other (Patient currently unresponsive to verbal and gentle tactile stimuli) Head: atraumatic, normocephalic, other (PERRL, Dry mucous membranes due to mouth breathing) Eyes: PERRL, other ENMT: other (PERRL, Dry mucous membranes due to mouth breathing) Neck: non-tender, supple Respiratory: diminished breath sounds Cardiovascular: other (weak peripheral pulses), regular rate and rhythm Gastrointestinal: other (Slightly distended, Bowel sounds hypoactive) Extremities: other (Trace pedal edema on the left foot) Neurological: unresponsive (Patient currently unresponsive to verbal and gentle tactile stimuli) Skin: other (Patient with multiple pressure ulcers, Stage I on the sacrum, Stage 2 on the Lt buttock, venous ulcers on the left and right lower extremties) Medications Medications Current Medications Sodium Biphosphate/ Sodium Phosphate (Fleet Enema) 133 ml DAILY PRN [place] CONSTIPATION; Start 04/05/17 at 18:30 [facility] This patient corrigan... PRN PRN XX WOUND CARE; Start 04/06/17 at 04:00 Bisacodyl 10 mg 10 mg DAILY PRN [place] CONSTIPATION; Start 04/07/17 at 12:00 Sodium Chloride (NS) 1,000 ml @ 10 mls/hr Q24H IV Last administered on 10:38; Admin Dose 10 MLS/HR; Start 04/15/17 at 15:21 Ondansetron HCl (Zofran Inj) 4 mg Q6H PRN IV NAUSEA AND/OR VOMITING; Start at 15:30 Acetaminophen (Tylenol Supp) 650 mg Q6H PRN [place] FEVER GREATER THAN 100.6 Last administered on 04/29/17 09:39; Admin Dose 650 MG; Start 04/18/17 at 10:30 Atropine Sulfate (Atropine 1% Oph) 2 drop Q2H PRN SL PRN SECRETIONS Last administered on 05/01/17 10:22; Admin Dose 2 DROP; Start 04/19/17 at 23:30 Lorazepam (Ativan) 1 mg Q4 PRN IV AGITATION/ANXIETY Last administered on 14:06; Admin Dose 1 MG; Start 04/25/17 at 12:30 Lorazepam (Ativan) 1 mg Q4 IV Last administered on 05/01/17 08:38; Admin Dose 1 MG; Start 04/30/17 at 17:00 Hydromorphone HCl 2 mg 2 mg Q4H PRN IV BREAKTHROUGH PAIN; Start 04/30/17 at 15: 30 Hydromorphone HCl/ Dextrose (Dilaudid/D5W) 100 ml @ 15 mls/hr TITRATE IVPB Last administered on 05/01/17 09:40; Admin Dose 15 MLS/HR; Start 05/01/17 at 08: 00 NIKKI GARCIA MD May 01, 2017 13:14
[2017-05-01] MEDS: HYDROmorphONE 2 MG/ML SYG IV PRN (14:22)
[2017-05-01 14:31] VITALS: BP 87/54; RESP 19
[2017-05-01] MEDS: SOD CHLORIDE 0.9% 1,000 ML IV SCH (15:17)
[2017-05-01] MEDS: ARTIFICIAL TEARS 15 ML OPH BOTH EYES PRN (15:53)
[2017-05-01] MEDS: ATROPINE 1% 5 ML OPH SL SCH (17:33)
[2017-05-01] MEDS: ACETAMINOPHEN 650 MG SUPP PR PRN (19:56)
[2017-05-01 20:56] VITALS: BP 112/59; RESP 22
[2017-05-02] MEDS: DEXTROSE 5% IVPB SCH ×4 (01:17→21:23)
[2017-05-02] MEDS: HYDROMORPHONE IVPB SCH ×4 (01:17→21:23)
[2017-05-02] MEDS: LORAZEPAM 2 MG INJ IV SCH ×6 (01:28→21:22)
[2017-05-02] MEDS: HYDROmorphONE 2 MG/ML SYG IV PRN ×2 (01:29→14:25)
[2017-05-02] MEDS: ATROPINE 1% 5 ML OPH SL SCH ×4 (01:31→17:00)
[2017-05-02 02:52] VITALS: BP 100/62; RESP 20
[2017-05-02] MEDS: NACL 0.9% 3 ML SYG IV SCH ×3 (08:28→17:00)
[2017-05-02] MEDS: ARTIFICIAL TEARS 15 ML OPH BOTH EYES PRN (11:24)
[2017-05-02 12:00] VITALS: BP 117/58; PULSE 132; RESP 22
--- NOTE | 2017-05-02 13:09 | PN ---
Date/Time of Note Date/Time of Note DATE: 05/02/17 TIME: 13:08 Assessment/Plan VTE Prophylaxis VTE Prophylaxis Intervention: other Lines/Catheters IV Catheter Type (from [facility]): port a cath Urinary Cath still in place: No Assessment/Plan Chief Complaint/Hosp Course 1. 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 2. Chronic myeloid leukemia. 3. Pulmonary hypertension. PLAN: The patient's Dilaudid has been increased to 10 mg an hour. Continue Ativan every 4 hours. Continue atropine drops for secretion and Duoneb for chest congestion as needed. The patient remains appropriate for GI level of care. Plan was discussed with charge nurse as well as nursing staff. Problems: Subjective 24 Hr Interval Summary Free Text/Dictation Patient's condition is unchanged Exam/Review of Systems Vital Signs Vitals Vital Signs Date Time Temp Pulse Resp B/P Pulse Ox O2 Delivery O2 Flow Rate FiO2 05/02/17 12:00 Nasal Cannula 3.0 05/02/17 02:52 99.1 118 20 100/62 93 Intake and Output 05/01/17 05/01/17 05/02/17 15:00 23:00 07:00 Intake Total 45 ml 210 ml 271 ml Balance 45 ml 210 ml 271 ml Exam Constitutional: well developed Head: atraumatic, normocephalic Neck: supple Respiratory: diminished breath sounds Cardiovascular: regular rate and rhythm Gastrointestinal: non-tender, soft Extremities: normal pulses Medications Medications Current Medications Sodium Biphosphate/ Sodium Phosphate (Fleet Enema) 133 ml DAILY PRN [place] CONSTIPATION; Start 04/05/17 at 18:30 Miscellaneous Information (Pending [facility] Order For Wound Care) This patient corrigan... PRN PRN XX WOUND CARE; Start 04/06/17 at 04:00 Bisacodyl 10 mg 10 mg DAILY PRN [place] CONSTIPATION; Start 04/07/17 at 12:00 Sodium Chloride (NS) 1,000 ml @ 10 mls/hr Q24H IV Last administered on t 10:38; Admin Dose 10 MLS/HR; Start 04/15/17 at 15:21 Ondansetron HCl (Zofran Inj) 4 mg Q6H PRN IV NAUSEA AND/OR VOMITING; Start at 15:30 Acetaminophen (Tylenol Supp) 650 mg Q6H PRN [place] FEVER GREATER THAN 100.6 Last administered on 05/01/17 19:56; Admin Dose 650 MG; Start 04/18/17 at 10:30 Lorazepam (Ativan) 1 mg Q4 PRN IV AGITATION/ANXIETY Last administered on 14:06; Admin Dose 1 MG; Start 04/25/17 at 12:30 Lorazepam 1 mg 1 mg Q4 IV Last administered on 05/02/17 12:04; Admin Dose 1 MG ; Start 04/30/17 at 17:00 Hydromorphone HCl/ Dextrose (Dilaudid/D5W) 100 ml @ 15 mls/hr TITRATE IVPB Last administered on 05/02/17 08:28; Admin Dose 15 MLS/HR; Start 05/01/17 at 08: 00 Atropine Sulfate (Atropine 1% Oph) 2 drop Q6 SL Last administered on 05/02/17 11:24; Admin Dose 2 DROP; Start 05/01/17 at 18:00 Hydromorphone HCl (Dilaudid) 2 mg Q10MIN PRN IV BREAKTHROUGH PAIN Last administered on 05/02/17 01:29; Admin Dose 2 MG; Start 05/01/17 at 14:00 Atropine Sulfate (Atropine 1% Oph) 2 drop Q2H PRN SL for excess secretions; Start 05/01/17 at 14:00 JOSH CAR May 02, 2017 13:09
[2017-05-02] MEDS: SOD CHLORIDE 0.9% 1,000 ML IV SCH (14:24)
--- NOTE | 2017-05-02 14:24 | PN ---
Date/Time of Note Date/Time of Note DATE: 05/02/17 TIME: 14:14 Assessment/Plan VTE Prophylaxis VTE Prophylaxis Intervention: other (Patient is on hospice and actively dying) Lines/Catheters IV Catheter Type (from [facility]): port a cath Urinary Cath still in place: No Assessment/Plan Chief Complaint/Hosp Course Ms Cruz is a 67-year-old female with history of chronic myeloid leukemia status post recent chemo, admitted to [facility] on 2016 due complaints of abdominal pain found to have multiple large hepatic masses, with some of them bleeding, CT scan also showed revealed extensive nodularity in the left retroperitoneum representing extensive portosystemic collateral vascular adenopathy. As per the records, patient has a history of neuroendocrine tumors to the liver. Patient's condition continued to deteriorate during the hospitalization and has since been admitted to the In- patient hospice unit. She has been having issues with Pain, excess secretions and occasional anxiety. Problems: Assessment/Plan For pain: Patient continues to have issues with pain especially during repositioning. She is currently on Dilaudid 15 mg/hr which as well as Dialudid 2 mg IV every 10 minutes as needed of which she received 2 doses in the last 24 hrs. Discussed with the nurse to give the bolus dose of Dilaudid 2 mg 15-30 minutes prior to repositioning. For excess secretions: Patient's issues of excess secretions appear to be well controlled on Atropine drops 1% 2 drops every 6 hrs ATC which was scheduled yesterday as well as every 2 hrs prn. Recommend to continue the same. Will also recommend to decrease the TKO to 5 ml as it appears to be contributing to the excess secretions. For anxiety: Her anxiety appears to be well controlled on Ativan 1 mg IV every 4 hrs ATC and every 4 hrs prn. Recommend to continue the same. Recommend to continue other comfort measures such as routine oral and eye care as well as repositioning probably every 4 hrs for comfort. Patient continues to be unresponsive with active symptoms and appears appropriate for [facility] level of care and is hemodynamically too unstable to be transferred. Subjective 24 Hr Interval Summary Free Text/Dictation Patient continues to have occasional pain especially during repositioning and has received 2 bolus doses of Dilaudid 2 mg in the last 24 hrs. she continues to be on Dilaudid drip at 15 mg/hr. Her secretions appear to be well controlled on Atropine drops 1%, 2 drops every 6 hrs ATC. She continues to be unresponsive to verbal and gentle tactile stimuli. Exam/Review of Systems Vital Signs Vitals Vital Signs Date Time Temp Pulse Resp B/P Pulse Ox O2 Delivery O2 Flow Rate FiO2 05/02/17 12:00 Nasal Cannula 3.0 05/02/17 02:52 99.1 118 20 100/62 93 Intake and Output 05/01/17 05/01/17 05/02/17 15:00 23:00 07:00 Intake Total 45 ml 210 ml 271 ml Balance 45 ml 210 ml 271 ml Exam Constitutional: other (Patient currently unresponsive to verbal and gentle tactile stimuli) Head: atraumatic, normocephalic, other (PERRL, Dry mucous membranes due to mouth breathing) Eyes: PERRL, other ENMT: other (PERRL, Dry mucous membranes due to mouth breathing) Neck: non-tender, supple Respiratory: diminished breath sounds Cardiovascular: other (weak peripheral pulses), regular rate and rhythm Gastrointestinal: other (Slightly distended, Bowel sounds hypoactive) Extremities: other (Trace pedal edema on the left foot) Neurological: unresponsive (Patient currently unresponsive to verbal and gentle tactile stimuli) Skin: other (Patient with multiple pressure ulcers, Stage I on the sacrum, Stage 2 on the Lt buttock, venous ulcers on the left and right lower extremties) Medications Medications Current Medications Sodium Biphosphate/ Sodium Phosphate (Fleet Enema) 133 ml DAILY PRN [place] CONSTIPATION; Start 04/05/17 at 18:30 Miscellaneous Information (Pending [facility] Order For Wound Care) This patient corrigan... PRN PRN XX WOUND CARE; Start 04/06/17 at 04:00 Bisacodyl 10 mg 10 mg DAILY PRN [place] CONSTIPATION; Start 04/07/17 at 12:00 Sodium Chloride (NS) 1,000 ml @ 10 mls/hr Q24H IV Last administered on 10:38; Admin Dose 10 MLS/HR; Start 04/15/17 at 15:21 Ondansetron HCl (Zofran Inj) 4 mg Q6H PRN IV NAUSEA AND/OR VOMITING; Start at 15:30 Acetaminophen (Tylenol Supp) 650 mg Q6H PRN [place] FEVER GREATER THAN 100.6 Last administered on 05/01/17 19:56; Admin Dose 650 MG; Start 04/18/17 at 10:30 Lorazepam (Ativan) 1 mg Q4 PRN IV AGITATION/ANXIETY Last administered on 14:06; Admin Dose 1 MG; Start 04/25/17 at 12:30 Lorazepam 1 mg 1 mg Q4 IV Last administered on 05/02/17 12:04; Admin Dose 1 MG ; Start 04/30/17 at 17:00 Hydromorphone HCl/ Dextrose (Dilaudid/D5W) 100 ml @ 15 mls/hr TITRATE IVPB Last administered on 05/02/17 08:28; Admin Dose 15 MLS/HR; Start 05/01/17 at 08: 00 Atropine Sulfate (Atropine 1% Oph) 2 drop Q6 SL Last administered on 05/02/17 11:24; Admin Dose 2 DROP; Start 05/01/17 at 18:00 Hydromorphone HCl (Dilaudid) 2 mg Q10MIN PRN IV BREAKTHROUGH PAIN Last administered on 05/02/17 01:29; Admin Dose 2 MG; Start 05/01/17 at 14:00 Atropine Sulfate (Atropine 1% Oph) 2 drop Q2H PRN SL for excess secretions; Start 05/01/17 at 14:00 NIKKI GARCIA MD May 02, 2017 14:24
[2017-05-02] MEDS: ATROPINE 1% 5 ML OPH SL PRN (14:25)
[2017-05-02 20:00] VITALS: BP 113/62; RESP 21
[2017-05-03] MEDS: LORAZEPAM 2 MG INJ IV SCH ×6 (01:42→20:07)
[2017-05-03] MEDS: ATROPINE 1% 5 ML OPH SL SCH ×5 (01:47→20:04)
[2017-05-03 02:00] VITALS: BP 94/50; RESP 20
[2017-05-03] MEDS: DEXTROSE 5% IVPB SCH ×4 (04:12→18:09)
[2017-05-03] MEDS: HYDROMORPHONE IVPB SCH ×4 (04:12→18:09)
[2017-05-03 08:19] VITALS: BP 81/52; RESP 26
[2017-05-03] MEDS: ATROPINE 1% 5 ML OPH SL PRN (09:28)
[2017-05-03] MEDS: HYDROmorphONE 2 MG/ML SYG IV PRN ×2 (10:21→18:50)
[2017-05-03] MEDS ORDERED: HYDROmorphONE 4 MG/ML SYG IV STA (11:18)
[2017-05-03] MEDS ORDERED: HYDROmorphONE 2 MG/ML SYG ONE (11:23)
[2017-05-03 11:24] VITALS: BP 55/36; PULSE 127
[2017-05-03] MEDS ORDERED: HYDROmorphONE 2 MG/ML SYG IV ONE (11:30)
--- NOTE | 2017-05-03 11:44 | PN ---
Date/Time of Note Date/Time of Note DATE: 05/03/17 TIME: 11:41 Assessment/Plan VTE Prophylaxis VTE Prophylaxis Intervention: other (Patient is on hospice and actively dying) Lines/Catheters IV Catheter Type (from [facility]): Cesia a cath Urinary Cath still in place: No Assessment/Plan Chief Complaint/Hosp Course Ms Cruz is a 67-year-old female with history of chronic myeloid leukemia status post recent chemo, admitted to [facility] on 2016 due complaints of abdominal pain found to have multiple large hepatic masses, with some of them bleeding, CT scan also showed revealed extensive nodularity in the left retroperitoneum representing extensive portosystemic collateral vascular adenopathy. As per the records, patient has a history of neuroendocrine tumors to the liver. Patient's condition continued to deteriorate during the hospitalization and has since been admitted to the In- patient hospice unit. She has been having issues with Respiratory distress, Pain, excess secretions and occasional anxiety. Problems: Assessment/Plan For Respiratory distress/pain: Patient has been having respiratory distress currently breathing at 36-40/minute. Her dilaudid drip has been increased to 16 mg/hr a short while and currently is being given a stat dose of Dilaudid dose of 5 mg and the prn dose is also being increased to 5 mg every 10 minutes as needed. Recommend to continue to monitor and consider increasing the drip if frequent bolus doses received. For excess secretions: Patient is very congested currently and has been having excess secretions for which she is on Atropine drops sublingually every 6 hrs ATC and every 2 hrs as needed and has received 2 prn doses in the last 24 hrs. Recommend to increase the Atropine drops to every 4 hrs ATC and continue the prn dose at every 2 hrs as needed. Recommend also to start her on a Scopolamine patch every 72 hrs. For anxiety: Her anxiety appears to be well controlled on Ativan 1 mg IV every 4 hrs ATC and every 4 hrs prn. Recommend to make the prn dose more frequently at 1 mg every 2 hrs as needed and continue to monitor. Recommend to continue other comfort measures such as routine oral and eye care as well as repositioning probably every 4 hrs for comfort. Patient continues to be unresponsive with active symptoms and is actively dying and appears imminent. She is appropriate for [facility] level of care and is hemodynamically too unstable to be transferred. Spoke to patient's sister, Yudith over the phone and update her about the patient's condition and the medication changes for which she was agreeable. Discussed that the patient appeared imminent. Coordinated with nursing staff as well as Amando Haro LVN. Subjective 24 Hr Interval Summary Free Text/Dictation Patient is currently unresponsive to verbal and gentle tactile stimuli, in respiratory distress, breathing at 36-40/minute with excess secretions and congestion. The dilaudid drip has been increased a short while ago to 16 mg/hr. She did receive 3 bolus doses of Dilaudid 2 mg in the last 24 hrs. She also received 2 prn doses of Atropine 1% drops in the last 24 hrs in addition to the every 6 hrs scheduled regimen as she has been having excess secretions. Exam/Review of Systems Vital Signs Vitals Vital Signs Date Time Temp Pulse Resp B/P Pulse Ox O2 Delivery O2 Flow Rate FiO2 05/03/17 11:24 127 55/36 91 05/03/17 08:19 98.9 36 05/03/17 07:56 5.0 05/02/17 19:55 Nasal Cannula Intake and Output 05/02/17 05/02/17 05/03/17 15:00 23:00 07:00 Intake Total 240 ml 120 ml 180 ml Balance 240 ml 120 ml 180 ml Exam Constitutional: (Patient currently unresponsive to verbal and gentle tactile stimuli) Head: atraumatic, normocephalic, x with audible gurgling, Dry mucous membranes due to mouth breathing) Eyes: Constitutional: other (Patient currently unresponsive to verbal and gentle tactile stimuli) Head: atraumatic, normocephalic, Audible gurgling, Dry mucous membranes due to mouth breathing) Eyes: Pupils 4 mm with sluggish reaction to light. Neck: non-tender, supple Respiratory: Tachypneic and shallow bretahing at 36/minute with diminished breath sounds on the right side. Cardiovascular: S1,S2+, tachycardic, without any murmurs, rubs or gallops. Absent radial and pedal pulses. Gastrointestinal: other (Slightly distended, Bowel sounds hypoactive) Extremities: other (Trace pedal edema on the left foot) Neurological: unresponsive (Patient currently unresponsive to verbal and gentle tactile stimuli) Skin: other (Patient with multiple pressure ulcers, Stage I on the sacrum, Stage 2 on the Lt buttock, venous ulcers on the left and right lower extremties) Medications Medications Current Medications Sodium Biphosphate/ Sodium Phosphate (Fleet Enema) 133 ml DAILY PRN [place] CONSTIPATION; Start 04/05/17 at 18:30 Miscellaneous [facility] This patient corrigan... PRN PRN XX WOUND CARE; Start 04/06/17 at 04:00 Bisacodyl 10 mg 10 mg DAILY PRN [place] CONSTIPATION; Start 04/07/17 at 12:00 Sodium Chloride (NS) 1,000 ml @ 5 mls/hr Q24H IV Last administered on 14:24; Admin Dose 5 MLS/HR; Start 04/15/17 at 15:21 Ondansetron HCl (Zofran Inj) 4 mg Q6H PRN IV NAUSEA AND/OR VOMITING; Start at 15:30 Acetaminophen (Tylenol Supp) 650 mg Q6H PRN [place] FEVER GREATER THAN 100.6 Last administered on 05/01/17 19:56; Admin Dose 650 MG; Start 04/18/17 at 10:30 Lorazepam 1 mg 1 mg Q4 IV Last administered on 05/03/17 09:38; Admin Dose 1 MG ; Start 04/30/17 at 17:00 Hydromorphone HCl/ Dextrose (Dilaudid/D5W) 100 ml @ 15 mls/hr TITRATE IVPB Last administered on 05/03/17 11:29; Admin Dose 16 MLS/HR; Start 05/01/17 at 08: 00 Atropine Sulfate (Atropine 1% Oph) 2 drop Q2H PRN SL for excess secretions Last administered on 05/03/17 09:28; Admin Dose 2 DROP; Start 05/01/17 at 14:00 Hydromorphone HCl (Dilaudid) 5 mg Q10MIN PRN IV BREAKTHROUGH PAIN; Start at 11:24 Scopolamine (Transderm-Scop) 1 patch Q72H TRANSDERM ; Start 05/03/17 at 12:00 Atropine Sulfate (Atropine 1% Oph) 2 drop Q4 SL ; Start 05/03/17 at 13:00; Status UNV Lorazepam (Ativan) 1 mg Q2 PRN IV AGITATION/ANXIETY; Start 05/03/17 at 13:00; Status UNV NIKKI GARCIA MD May 03, 2017 11:44
[2017-05-03] MEDS ORDERED: LORAZEPAM 2 MG INJ IV PRN (12:00)
[2017-05-03] MEDS ORDERED: SCOPOLAMINE 1.5 MG PATCH TRANSDERM SCH (12:00)
--- NOTE | 2017-05-03 15:02 | PN ---
Date/Time of Note Date/Time of Note DATE: 05/03/17 TIME: 15:02 Assessment/Plan VTE Prophylaxis VTE Prophylaxis Intervention: other Lines/Catheters IV Catheter Type (from [facility]): PC Urinary Cath still in place: No Assessment/Plan Chief Complaint/Hosp Course 1. 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 2. Chronic myeloid leukemia. 3. Pulmonary hypertension. PLAN: The patient's Dilaudid has been increased to 10 mg an hour. Continue Ativan every 4 hours. Continue atropine drops for secretion and Duoneb for chest congestion as needed. The patient remains appropriate for GI level of care. Plan was discussed with charge nurse as well as nursing staff. Problems: Subjective 24 Hr Interval Summary Free Text/Dictation Patient has no complaints Exam/Review of Systems Vital Signs Vitals Vital Signs Date Time Temp Pulse Resp B/P Pulse Ox O2 Delivery O2 Flow Rate FiO2 05/03/17 11:24 127 55/36 91 05/03/17 08:19 98.9 26 05/03/17 07:56 3.0 05/02/17 19:55 Nasal Cannula Intake and Output 05/02/17 05/02/17 05/03/17 15:00 23:00 07:00 Intake Total 240 ml 120 ml 180 ml Balance 240 ml 120 ml 180 ml Exam Constitutional: well developed Head: atraumatic, normocephalic Neck: supple Respiratory: clear to auscultation Cardiovascular: regular rate and rhythm Gastrointestinal: non-tender, soft Extremities: normal pulses Medications Medications Current Medications Sodium Biphosphate/ Sodium Phosphate (Fleet Enema) 133 ml DAILY PRN [place] CONSTIPATION; Start 04/05/17 at 18:30 Miscellaneous Information (Pending [facility] Order For Wound Care) This patient corrigan... PRN PRN XX WOUND CARE; Start 04/06/17 at 04:00 Bisacodyl 10 mg 10 mg DAILY PRN [place] CONSTIPATION; Start 04/07/17 at 12:00 Sodium Chloride (NS) 1,000 ml @ 5 mls/hr Q24H IV Last administered on t 14:24; Admin Dose 5 MLS/HR; Start 04/15/17 at 15:21 Ondansetron HCl (Zofran Inj) 4 mg Q6H PRN IV NAUSEA AND/OR VOMITING; Start at 15:30 Acetaminophen (Tylenol Supp) 650 mg Q6H PRN [place] FEVER GREATER THAN 100.6 Last administered on 05/01/17 19:56; Admin Dose 650 MG; Start 04/18/17 at 10:30 Lorazepam 1 mg 1 mg Q4 IV Last administered on 05/03/17 09:38; Admin Dose 1 MG ; Start 04/30/17 at 17:00 Hydromorphone HCl/ Dextrose (Dilaudid/D5W) 100 ml @ 15 mls/hr TITRATE IVPB Last administered on 05/03/17 11:29; Admin Dose 16 MLS/HR; Start 05/01/17 at 08: 00 Atropine Sulfate (Atropine 1% Oph) 2 drop Q2H PRN SL for excess secretions Last administered on 05/03/17 09:28; Admin Dose 2 DROP; Start 05/01/17 at 14:00 Hydromorphone HCl (Dilaudid) 5 mg Q10MIN PRN IV BREAKTHROUGH PAIN; Start at 11:24 Scopolamine (Transderm-Scop) 1 patch Q72H TRANSDERM ; Start 05/03/17 at 12:00 Atropine Sulfate (Atropine 1% Oph) 2 drop Q4 SL ; Start 05/03/17 at 13:00 Lorazepam (Ativan) 1 mg Q2H PRN IV AGITATION/ANXIETY; Start 05/03/17 at 12:00 JOSH CAR May 03, 2017 15:02
[2017-05-03 15:25] VITALS: BP 60/39; RESP 24
[2017-05-03] MEDS: SOD CHLORIDE 0.9% 1,000 ML IV SCH (16:15)
[2017-05-03 20:00] VITALS: BP 76/45; RESP 22
[2017-05-04] MEDS: LORAZEPAM 2 MG INJ IV SCH ×5 (00:36→16:39)
[2017-05-04] MEDS: ATROPINE 1% 5 ML OPH SL SCH ×5 (00:38→16:39)
[2017-05-04] MEDS: DEXTROSE 5% IVPB SCH ×3 (01:11→14:27)
[2017-05-04] MEDS: HYDROMORPHONE IVPB SCH ×3 (01:11→14:27)
[2017-05-04 02:00] VITALS: BP 80/53; RESP 19
[2017-05-04 08:00] VITALS: BP 89/50; RESP 25
[2017-05-04] MEDS: HYDROmorphONE 2 MG/ML SYG IV PRN ×3 (11:41→13:54)
[2017-05-04] MEDS: ATROPINE 1% 5 ML OPH SL PRN (11:57)
--- NOTE | 2017-05-04 12:21 | PN ---
Date/Time of Note Date/Time of Note DATE: 05/04/17 TIME: 12:15 Assessment/Plan VTE Prophylaxis VTE Prophylaxis Intervention: other (Patient is on hospice and actively dying) Lines/Catheters IV [facility] Urinary Cath still in place: No Assessment/Plan Chief Complaint/Hosp Course Ms Cruz is a 67-year-old female with history of chronic myeloid leukemia status post recent chemo, admitted to [facility] on 2016 due complaints of abdominal pain found to have multiple large hepatic masses, with some of them bleeding, CT scan also showed revealed extensive nodularity in the left retroperitoneum representing extensive portosystemic collateral vascular adenopathy. As per the records, patient has a history of neuroendocrine tumors to the liver. Patient's condition continued to deteriorate during the hospitalization and has since been admitted to the In- patient hospice unit. She has been having issues with Respiratory distress, Pain, excess secretions and intermittent fevers. Problems: Assessment/Plan For Respiratory distress/pain: Patient has been having respiratory distress currently breathing at 36/minute. Her dilaudid drip has been increased to 18 mg/ hr a short while ago and is being given 2 bolus doses of dilaudid 5 mg on this visit. Recommend to increase the bolus dose to 8 mg every 10 minutes as needed. For excess secretions: Patient's issues with excess secretions appear to be well controlled on Atropine drops every 4 hrs ATC and every 2 hrs as needed. She is being given one dose of atropine drops right now due to audible gurgling. She is also on a scopolamine patch whcih was started yesterday. Recommend to continue the same. For anxiety: Her anxiety appears to be well controlled on Ativan 1 mg IV every 4 hrs ATC and every 4 hrs prn. Recommend to make the prn dose more frequently at 1 mg every 2 hrs as needed and continue to monitor. Intermittent fevers: Patient has been having issues with fevers since yesterday , She does have Tylenol supp 650 mg every 6 hrs as needed. Recommend to continue the same along with cooling measures. Recommend to continue other comfort measures such as routine oral and eye care as well as repositioning probably every 4 hrs for comfort. Patient continues to be unresponsive and hypotensive with active symptoms and is actively dying and appears imminent. She is appropriate for [facility] level of care and is hemodynamically too unstable to be transferred. Spoke to patient's sister, Yudith over the phone and update her about the patient's condition and the medication changes for which she was agreeable. Discussed that the patient appeared imminent. Coordinated with nursing staff as well as Amando Haro LVN. Subjective 24 Hr Interval Summary Free Text/Dictation Patient continues to be unresponsive with fluctuating episodes of respiratory distress as well as intermittent fevers and excess secretions. No urine output in the last 24 hrs. She is currently being given 2 bolus doses of the dilaudid drip 5 mg and the basal rate is also being increased to 18 mg/hr due to respiratory distress. Exam/Review of Systems Vital Signs Vitals Vital Signs Date Time Temp Pulse Resp B/P Pulse Ox O2 Delivery O2 Flow Rate FiO2 05/04/17 09:57 Nasal Cannula 4.0 05/04/17 08:42 100.0 05/04/17 08:00 126 25 89/50 87 Intake and Output 05/03/17 05/03/17 05/04/17 15:00 23:00 07:00 Intake Total 62 ml 168 ml 223 ml Balance 62 ml 168 ml 223 ml Exam Constitutional: (Patient currently unresponsive to verbal and gentle tactile stimuli) HEENT: atraumatic, normocephalic, with audible gurgling, Dry mucous membranes due to mouth breathing, Pupils 5 mm with sluggish reaction to light. Neck: non-tender, supple Respiratory: Tachypneic and shallow breathing at 36/minute with diminished breath sounds on the right side. Cardiovascular: S1,S2+, tachycardic, without any murmurs, rubs or gallops. Absent radial and pedal pulses. Gastrointestinal: Slightly distended, Bowel sounds hypoactive) Extremities: other (Trace pedal edema on the left foot) Neurological: unresponsive (Patient currently unresponsive to verbal and gentle tactile stimuli) Skin: other (Patient with multiple pressure ulcers, Stage I on the sacrum, Stage 2 on the Lt buttock, venous ulcers on the left and right lower extremties) Medications Medications Current Medications Sodium Biphosphate/ Sodium Phosphate (Fleet Enema) 133 ml DAILY PRN [place] CONSTIPATION; Start 04/05/17 at 18:30 Miscellaneous Information ([facility]) This patient corrigan... PRN PRN XX WOUND CARE; Start 04/06/17 at 04:00 Bisacodyl 10 mg 10 mg DAILY PRN [place] CONSTIPATION; Start 04/07/17 at 12:00 Sodium Chloride (NS) 1,000 ml @ 5 mls/hr Q24H IV Last administered on 16:15; Admin Dose 5 MLS/HR; Start 04/15/17 at 15:21 Ondansetron HCl (Zofran Inj) 4 mg Q6H PRN IV NAUSEA AND/OR VOMITING; Start at 15:30 Acetaminophen (Tylenol Supp) 650 mg Q6H PRN [place] FEVER GREATER THAN 100.6 Last administered on 05/01/17 19:56; Admin Dose 650 MG; Start 04/18/17 at 10:30 Lorazepam 1 mg 1 mg Q4 IV Last administered on 05/04/17 08:45; Admin Dose 1 MG ; Start 04/30/17 at 17:00 Hydromorphone HCl/ Dextrose (Dilaudid/D5W) 100 ml @ 15 mls/hr TITRATE IVPB Last administered on 05/04/17 08:44; Admin Dose 17 MLS/HR; Start 05/01/17 at 08: 00 Atropine Sulfate (Atropine 1% Oph) 2 drop Q2H PRN SL for excess secretions Last administered on 05/04/17 11:57; Admin Dose 2 DROP; Start 05/01/17 at 14:00 Scopolamine (Transderm-Scop) 1 patch Q72H TRANSDERM Last administered on 14:00; Admin Dose 1 PATCH; Start 05/03/17 at 12:00 Atropine Sulfate (Atropine 1% Oph) 2 drop Q4 SL Last administered on 05/04/17 08:45; Admin Dose 2 DROP; Start 05/03/17 at 13:00 Lorazepam (Ativan) 1 mg Q2H PRN IV AGITATION/ANXIETY; Start 05/03/17 at 12:00 Hydromorphone HCl (Dilaudid) 8 mg Q10MIN PRN IV BREAKTHROUGH PAIN; Start at 12:30; Status NIKKI INTERIANO MD May 04, 2017 12:21
--- NOTE | 2017-05-04 12:31 | PN ---
Date/Time of Note Date/Time of Note DATE: 05/04/17 TIME: 12:31 Assessment/Plan VTE Prophylaxis VTE Prophylaxis Intervention: other Lines/Catheters [facility]from [facility] PC Urinary Cath still in place: No Assessment/Plan Chief Complaint/Hosp Course 1. 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 2. Chronic myeloid leukemia. 3. Pulmonary hypertension. PLAN: The patient's Dilaudid has been increased to 10 mg an hour. Continue Ativan every 4 hours. Continue atropine drops for secretion and Duoneb for chest congestion as needed. The patient remains appropriate for GI level of care. Plan was discussed with charge nurse as well as nursing staff. Problems: Subjective 24 Hr Interval Summary Free Text/Dictation Patient not verbally responsive but appears comfortable Exam/Review of Systems Vital Signs Vitals Vital Signs Date Time Temp Pulse Resp B/P Pulse Ox O2 Delivery O2 Flow Rate FiO2 05/04/17 09:57 Nasal Cannula 4.0 05/04/17 08:42 100.0 05/04/17 08:00 126 25 89/50 87 Intake and Output 05/03/17 05/03/17 05/04/17 15:00 23:00 07:00 Intake Total 62 ml 168 ml 223 ml Balance 62 ml 168 ml 223 ml Exam Constitutional: well developed Head: atraumatic, normocephalic Neck: supple Respiratory: clear to auscultation Cardiovascular: regular rate and rhythm Gastrointestinal: non-tender, soft Extremities: normal pulses Medications Medications Current Medications Sodium Biphosphate/ Sodium Phosphate (Fleet Enema) 133 ml DAILY PRN [place] CONSTIPATION; Start 04/05/17 at 18:30 Miscellaneous Information (Pending [facility] Order For Wound Care) This patient corrigan... PRN PRN XX WOUND CARE; Start 04/06/17 at 04:00 Bisacodyl 10 mg 10 mg DAILY PRN [place] CONSTIPATION; Start 04/07/17 at 12:00 Sodium Chloride (NS) 1,000 ml @ 5 mls/hr Q24H IV Last administered on t 16:15; Admin Dose 5 MLS/HR; Start 04/15/17 at 15:21 Ondansetron HCl (Zofran Inj) 4 mg Q6H PRN IV NAUSEA AND/OR VOMITING; Start at 15:30 Acetaminophen (Tylenol Supp) 650 mg Q6H PRN [place] FEVER GREATER THAN 100.6 Last administered on 05/01/17 19:56; Admin Dose 650 MG; Start 04/18/17 at 10:30 Lorazepam 1 mg 1 mg Q4 IV Last administered on 05/04/17 08:45; Admin Dose 1 MG ; Start 04/30/17 at 17:00 Hydromorphone HCl/ Dextrose (Dilaudid/D5W) 100 ml @ 15 mls/hr TITRATE IVPB Last administered on 05/04/17 08:44; Admin Dose 17 MLS/HR; Start 05/01/17 at 08: 00 Atropine Sulfate (Atropine 1% Oph) 2 drop Q2H PRN SL for excess secretions Last administered on 05/04/17 11:57; Admin Dose 2 DROP; Start 05/01/17 at 14:00 Scopolamine (Transderm-Scop) 1 patch Q72H TRANSDERM Last administered on 14:00; Admin Dose 1 PATCH; Start 05/03/17 at 12:00 Atropine Sulfate (Atropine 1% Oph) 2 drop Q4 SL Last administered on 05/04/17 08:45; Admin Dose 2 DROP; Start 05/03/17 at 13:00 Lorazepam (Ativan) 1 mg Q2H PRN IV AGITATION/ANXIETY; Start 05/03/17 at 12:00 Hydromorphone HCl (Dilaudid) 8 mg Q10MIN PRN IV BREAKTHROUGH PAIN; Start at 12:30 JOSH CAR May 04, 2017 12:31
[2017-05-04] MEDS: ARTIFICIAL TEARS 15 ML OPH BOTH EYES PRN (13:04)
[2017-05-04] MEDS: SOD CHLORIDE 0.9% 1,000 ML IV SCH (15:21)
--- NOTE | 2017-05-09 12:00 | DES ---
Date/Time of Note Date/Time of Note DATE: 05/09/17 TIME: 11:59 Discharge/ Summary Admission/Discharge Info Admit Date/Time Apr 05, 2017 at 20:17 Discharge Date/Time May 04, 2017 at 19:30 Final Diagnosis liver cancer Preliminary Cause of liver cancer Hx of Present Illness Patient with liver cancer came into the hospital for complications related to chemotherapy. Patient and family opted for hospice care and patient was given comfort care. Eventually, patient . Hospital Course Ms Cruz is a 67-year-old female with history of chronic myeloid leukemia status post recent chemo, admitted to [facility] on 2016 due complaints of abdominal pain found to have multiple large hepatic masses, with some of them bleeding, CT scan also showed revealed extensive nodularity in the left retroperitoneum representing extensive portosystemic collateral vascular adenopathy. As per the records, patient has a history of neuroendocrine tumors to the liver. Patient's condition continued to deteriorate during the hospitalization and has since been admitted to the In- patient hospice unit. Patient and family opted for hospice care and patient was given comfort care. Eventually, patient . She has been having issues with Respiratory distress, Pain, excess secretions and intermittent fevers. JOSH CAR May 09, 2017 12:00
== END 2017-05-04 19:30 | disposition expired | DRG 843 ==
LOC: E/R 13:23 → PP2 20:11
PROVIDERS: ADMIT Internal Medicine; ATTEND Internal Medicine
PROC: 30233N1 Transfusion of Nonautologous Red Blood Cells into Peripheral Vein, Percutaneous Approach (ICD-10-PCS; principal; 2017-04-08)
DX: C7B.8 Other secondary neuroendocrine tumors (principal); J96.21 Acute and chronic respiratory failure with hypoxia; L89.322 Pressure ulcer of left buttock, stage 2; L89.151 Pressure ulcer of sacral region, stage 1; C92.10 Chronic myeloid leukemia, BCR/ABL-positive, not having achieved remission; I27.2 Other secondary pulmonary hypertension; E87.1 Hypo-osmolality and hyponatremia; D64.81 Anemia due to antineoplastic chemotherapy; R06.81 Apnea, not elsewhere classified; N39.0 Urinary tract infection, site not specified; C92.11 Chronic myeloid leukemia, BCR/ABL-positive, in remission; B37.49 Other urogenital candidiasis; R16.0 Hepatomegaly, not elsewhere classified; R10.9 Unspecified abdominal pain; D72.829 Elevated white blood cell count, unspecified; D63.8 Anemia in other chronic diseases classified elsewhere; Z66 Do not resuscitate; R50.9 Fever, unspecified; R00.0 Tachycardia, unspecified; R19.09 Other intra-abdominal and pelvic swelling, mass and lump; F41.9 Anxiety disorder, unspecified
CPT/HCPCS: 36415; 36430; 71010; 74176; 80048; 80053; 81001; 82962; 83036; 83605; 83735; 84100; 84439; 84484; 85025; 85610; 85730; 86850; 86900; 86901; 86920; 87040; 87081; 87086; 93005; 94640; 94664; 96361; 96365; 96366; 96368; 96375; 96376; J1170; J1450; J1956; J2060; J2270; J2405; J2765; J3475; J3480; J7030; J7042; J7509; P9016